=== PATIENT | female | born 1955 | race Caucasian/White ===

== ENCOUNTER 2017-06-10 09:01 | Inpatient (IN) | payer OTHER ==
[~2017-06-10] VITALS: Ht 170.2 cm; Wt 78.5 kg
--- NOTE | 2017-06-10 09:12 | Emergency Room Report ---
History of Present Illness General Chief Complaint: Generalized Weakness Source: Patient, EMS Present Illness HPI Patient is a 61-year-old female who presented after difficulty breathing. Patient reportedly had fallen yesterday. The patient reported having increased low back pain. The patient stays at a psychiatric facility. She was noted to have a low oxygen saturation and was started on supplemental oxygen by EMS. Allergies: Coded Allergies: No Known Allergies (Unverified , 06/10/17) Patient History Past Medical History: see triage record Reviewed Nursing Documentation: PMH: Agreed, PSxH: Agreed Nursing Documentation-PMH Past Medical History: No History, Except For Hx Cardiac Problems: Yes Hx Hypertension: Yes Hx Diabetes: Yes History Of Psychiatric Problem: Yes - Schizophrenia Hx Cerebrovascular Accident: Yes Review of Systems All Other Systems: limited - by poor historian Physical Exam Vital Signs Date Time Temp Pulse Resp B/P Pulse Ox O2 Delivery O2 Flow Rate FiO2 06/10/17 08:53 97.0 95 15 98/56 86 Non-Rebreather 15.0 General Appearance: alert, non-toxic, moderate distress ENT: normal pharynx Neck: full range of motion, supple Respiratory: accessory muscle use, rales Cardiovascular #1: regular rate, rhythm, no edema Gastrointestinal: normal inspection, normal bowel sounds Musculoskeletal: normal inspection, back normal, digits/nails normal Neurologic: normal inspection, alert, oriented x3, responsive Psychiatric: memory normal, other - flat affect slow speech Skin: normal inspection, normal color, no rash Medical Decision Making Diagnostic Impression: Primary Impression: Congestive heart failure Additional Impressions: Hypoxemia COPD (chronic obstructive pulmonary disease) Urinary tract infection ER Course Patient presented to shortness of breath.Differential included but was not limited to anemia, pneumonia, pneumothorax, myocardial infarction, pericardial effusion, congestive heart failure, acidosis. Because of complexity of patient' s case laboratory testing and imaging studies were ordered.Patient started on BiPAP. She was given breathing treatments. Patient was noted to have some evidence of urinary tract infection was given IV antibiotics patient was noted to have the chest x-ray read by radiology which showed evidence of CHF and cardiomegaly. Patient was given IV Lasix. The ABG showed CO2 retention which was initially drawn on a nonrebreather mask. Patient subsequently placed on BiPAP and was noted to have some improvement in CO2 with BiPAP. Dr. Olu Graham was contacted for inpatient management. Dr. brown was contacted for pulmonary consult. Labs Test 06/10/17 09:00 White Blood Count 8.0 K/UL (4.8-10.8) Red Blood Count 6.07 M/UL (4.20-5.40) Hemoglobin 17.1 G/DL (12.0-16.0) Hematocrit 57.2 % (37.0-47.0) Mean Corpuscular Volume 94 FL (80-99) Mean Corpuscular Hemoglobin 28.2 PG (27.0-31.0) Mean Corpuscular Hemoglobin Concent 29.8 G/DL (32.0-36.0) Red Cell Distribution Width 20.0 % (11.6-14.8) Platelet Count 143 K/UL (150-450) Mean Platelet Volume 6.4 FL (6.5-10.1) Neutrophils (%) (Auto) 72.7 % (45.0-75.0) Lymphocytes (%) (Auto) 15.1 % (20.0-45.0) Monocytes (%) (Auto) 11.4 % (1.0-10.0) Eosinophils (%) (Auto) 0.1 % (0.0-3.0) Basophils (%) (Auto) 0.8 % (0.0-2.0) EKG Diagnostic Results Rate: normal Rhythm: NSR ST Segments: no acute changes Rhythm Strip Diag. Results EP Interpretation: yes Rhythm: NSR, no PVC's, no ectopy Chest X-Ray Diagnostic Results Chest X-Ray Diagnostic Results : Chest X-Ray Ordered: Yes # of Views/Limited/Complete: 1 View Indication: Shortness of Breath EP Interpretation: No Interpretation: no effusion, no pneumothorax, no acute cardiopulmonary disease, other - right pleural effusion, bilateral interstitial infiltrates Impression: Other - acute chf Last Vital Signs Date Time Temp Pulse Resp B/P Pulse Ox O2 Delivery O2 Flow Rate FiO2 06/10/17 08:53 97.0 95 15 98/56 86 Non-Rebreather 15.0 Status: unchanged Disposition: ADMITTED INPATIENT Condition: Serious Kavon Valentine Jun 10, 2017 09:12
[2017-06-10] MEDS ORDERED: Solu-MEDROL 125mg Inj IVP ONE (09:15)
[2017-06-10] MEDS ORDERED: DuoNeb 0.5-3(2.5)mg/3ml neb HHN SCH (09:15)
[2017-06-10] MEDS ORDERED: Ampicillin/Sulbactam Sod 3 GM in NS 110 ML IV SCH (09:15)
[2017-06-10] MEDS ORDERED: Unasyn 3gm Inj ONE (09:17)
[2017-06-10 09:33] VITALS: BP 98/78
[2017-06-10 09:39] LABS: BASOPHILS % (AUTO) 0.8 % (0.0-2.0); EOSINOPHILS % (AUTO) 0.1 % (0.0-3.0); LYMPHOCYTES % (AUTO) 15.1 % (20.0-45.0); MEAN CORPUSCULAR HEMOGLOBIN 28.2 PG (27.0-31.0); MEAN CORPUSCULAR HGB CONC 29.8 G/DL (32.0-36.0); MEAN CORPUSCULAR VOLUME 94 FL (80-99); MEAN PLATELET VOLUME 6.4 FL (6.5-10.1); MONOCYTES % (AUTO) 11.4 % (1.0-10.0); NEUTROPHILS % (AUTO) 72.7 % (45.0-75.0); PLATELET COUNT 143 K/UL (150-450); RED BLOOD COUNT 6.07 M/UL (4.20-5.40)
[2017-06-10 09:55] LABS: REFLEX LACTIC ACID YES OR NO YES
[2017-06-10 10:07] LABS: ABG PCO2 85.1 mmHg (35.0-45.0)
[2017-06-10 10:08] LABS: ABG BASE EXCESS -0.3
[2017-06-10 10:09] LABS: ABG ALLEN TEST POSITIVE
[2017-06-10 10:27] VITALS: BP 102/63
[2017-06-10 10:40] LABS: INR 1.4 (0.9-1.1); PROTHROMBIN TIME 14.3 SEC (9.30-11.50)
[2017-06-10 10:53] LABS: TROPONIN I < 0.30 ng/mL (<=0.30)
[2017-06-10] MEDS ORDERED: MONTELUKAST SOD10 MG ORAL (10:55)
[2017-06-10] MEDS ORDERED: MAGNESIUM OXID400 M1 ORAL (10:55)
[2017-06-10] MEDS ORDERED: ATORVASTATIN CA20 MG ORAL (10:55)
[2017-06-10] MEDS ORDERED: ISOSORBIDE MONO20 MG PO (10:57)
[2017-06-10] MEDS ORDERED: GABAPENTIN100 MG ORAL (10:57)
[2017-06-10] MEDS ORDERED: BENAZEPRIL HCL20 MG ORAL (10:57)
[2017-06-10] MEDS ORDERED: SAPHRIS10 MG SL (10:58)
[2017-06-10] MEDS ORDERED: TRAZODONE HCL150 MG ORAL (11:00)
[2017-06-10] MEDS ORDERED: LAMICTAL150 MG ORAL (11:00)
[2017-06-10] MEDS ORDERED: SPIRIVA INH (11:00)
[2017-06-10 11:06] LABS: ALBUMIN/GLOBULIN RATIO 1.2 (1.0-2.7); CALCIUM 8.7 mg/dL (8.6-10.2); CREATININE 1.9 mg/dL (0.5-0.9); GLOMERULAR FILTRATION RATE 26.7 mL/min (>60); POTASSIUM 5.7 mEQ/L (3.4-4.9); TOTAL PROTEIN 6.2 g/dL (6.6-8.7)
[2017-06-10 11:22] LABS: APPEARANCE,URINE TURBID; KETONES,URINE 1+ (NEGATIVE); LEUKOCYTE ESTERASE ,URINE 3+ (NEGATIVE); NITRITE,URINE POSITIVE (NEGATIVE); PH,URINE 5 (4.5-8.0); PROTEIN,URINE 3+ (NEGATIVE); UROBILINOGEN,URINE 4 MG/DL (0.0-1.0)
[2017-06-10 11:33] LABS: ABG PCO2 75.7 mmHg (35.0-45.0)
[2017-06-10 11:34] LABS: ABG BASE EXCESS -2.4
[2017-06-10 11:35] LABS: ABG ALLEN TEST POSITIVE
--- NOTE | 2017-06-10 11:35 | Diagnostic Imaging Report ---
Indications: Shortness of breath Technique: Portable AP chest Findings: Comparison: None Cardiac silhouette enlarged. Pulmonary vascular redistribution. Bilateral interstitial infiltrates. Right costophrenic angle blunting compatible pleural effusion. IMPRESSION: Congestive heart failure
[2017-06-10 11:43] LABS: BACTERIA,URINE MODERATE /HPF; SQUAMOUS EPITHELIAL CELL,UR MODERATE /LPF (NONE/OCC); WBC,URINE 30-40 /HPF (0 - 2)
[2017-06-10 11:44] LABS: ICTOTEST POSITIVE
[2017-06-10 12:23] VITALS: BP 99/78
[2017-06-10 13:59] VITALS: BP 125/69
[2017-06-10] MEDS ORDERED: Promethazine/Codeine 5ml UD ORAL PRN (14:00)
--- NOTE | 2017-06-10 14:07 | Infectious Diseases Prog Note ---
Assessment/Plan Problems: (1) HCAP (healthcare-associated pneumonia) Assessment & Plan: will start vancomycin and zosyn empirically, send sputum culture (2) Urinary tract infection Assessment & Plan: will start zosyn, send urine culture (3) Sepsis Assessment & Plan: due to the above, will start wide spectrum antibiotics, and send blood culture (4) Congestive heart failure Assessment & Plan: needs diuresis , consult cardiology Subjective Allergies: Coded Allergies: No Known Allergies (Unverified , 06/10/17) Objective Vital Signs Last 24 Hour Vital Signs Date Time Temp Pulse Resp B/P Pulse Ox O2 Delivery O2 Flow Rate FiO2 06/10/17 13:59 97.7 88 23 125/69 94 Bi-pap 40 06/10/17 13:42 96.9 89 23 99/78 92 Bi-pap 15.0 40 06/10/17 12:23 89 23 99/78 92 Bi-pap 40 06/10/17 11:05 87 20 93 Facial 40 06/10/17 10:28 83 20 95 Facial 50 06/10/17 10:27 85 17 102/63 94 Bi-pap 40 06/10/17 09:33 96.9 85 17 98/78 97 Non-Rebreather 15.0 06/10/17 09:25 86 24 91 Non-Rebreather 06/10/17 09:23 86 24 Non-Rebreather 06/10/17 08:53 97.0 95 15 98/56 86 Non-Rebreather 15.0 Height (Feet): 5 Height (Inches): 7.00 Weight (Pounds): 180 Laboratory Tests Test 06/10/17 09:00 06/10/17 09:08 06/10/17 10:00 06/10/17 10:50 White Blood Count 8.0 K/UL (4.8-10.8) Red Blood Count 6.07 M/UL (4.20-5.40) H Hemoglobin 17.1 G/DL (12.0-16.0) H Hematocrit 57.2 % (37.0-47.0) H Mean Corpuscular Volume 94 FL (80-99) Mean Corpuscular Hemoglobin 28.2 PG (27.0-31.0) Mean Corpuscular Hemoglobin Concent 29.8 G/DL (32.0-36.0) L Red Cell Distribution Width 20.0 % (11.6-14.8) H Platelet Count 143 K/UL (150-450) L Mean Platelet Volume 6.4 FL (6.5-10.1) L Neutrophils (%) (Auto) 72.7 % (45.0-75.0) Lymphocytes (%) (Auto) 15.1 % (20.0-45.0) L Monocytes (%) (Auto) 11.4 % (1.0-10.0) H Eosinophils (%) (Auto) 0.1 % (0.0-3.0) Basophils (%) (Auto) 0.8 % (0.0-2.0) Lactic Acid Level 2.80 mmol/L (0.66-2.22) H 2.50 mmol/L (0.66-2.22) H Arterial Blood pH 7.180 (7.350-7.450) Arterial Blood Partial Pressure CO2 85.1 mmHg (35.0-45.0) *H Arterial Blood Partial Pressure O2 64.8 mmHg (75.0-100.0) L Arterial Blood HCO3 31.7 mmol/L (22.0-26.0) H Arterial Blood Oxygen Saturation 87.2 % (92.0-98.0) L Arterial Blood Base Excess -0.3 Perico Test Positive Prothrombin Time 14.3 SEC (9.30-11.50) H Prothromb Time International Ratio 1.4 (0.9-1.1) H Activated Partial Thromboplast Time 28 SEC (23-33) Sodium Level 140 mEQ/L (135-145) Potassium Level 5.7 mEQ/L (3.4-4.9) H Chloride Level 100 mEQ/L (98-107) Carbon Dioxide Level 23 mEQ/L (20-30) Anion Gap 17 (5-15) H Blood Urea Nitrogen 28 mg/dL (7-23) H Creatinine 1.9 mg/dL (0.5-0.9) H Estimat Glomerular Filtration Rate 26.7 mL/min (>60) Glucose Level 136 mg/dL (74-106) H Calcium Level 8.7 mg/dL (8.6-10.2) Total Bilirubin 0.7 mg/dL (0.0-1.2) Aspartate Amino Transf (AST/SGOT) 45 U/L (5-40) H Alanine Aminotransferase (ALT/SGPT) 31 U/L (3-33) Alkaline Phosphatase 64 U/L (35-104) Total Creatine Kinase 385 U/L (26-140) H Creatine Kinase MB 3.0 ng/mL (< 3.8) Creatine Kinase MB Relative Index 0.7 Troponin I < 0.30 ng/mL (<=0.30) Pro-B-Type Natriuretic Peptide 4674 pg/mL (0-125) H Total Protein 6.2 g/dL (6.6-8.7) L Albumin 3.5 g/dL (3.5-5.2) Globulin 2.7 g/dL Albumin/Globulin Ratio 1.2 (1.0-2.7) Urine Color Yellow Urine Appearance Turbid Urine pH 5 (4.5-8.0) Urine Specific [place] 1.025 (1.005-1.035) Urine Protein 3+ (NEGATIVE) H Urine Glucose (UA) Negative (NEGATIVE) Urine Ketones 1+ (NEGATIVE) H Urine Occult Blood 2+ (NEGATIVE) H Urine Nitrite Positive (NEGATIVE) H Urine Bilirubin 2+ (NEGATIVE) H Urine Ictotest Positive Urine Urobilinogen 4 MG/DL (0.0-1.0) H Urine Leukocyte Esterase 3+ (NEGATIVE) H Urine RBC 10-15 /HPF (0 - 2) H Urine WBC 30-40 /HPF (0 - 2) H Urine Squamous Epithelial Cells Moderate /LPF (NONE/OCC) H Urine Bacteria Moderate /HPF (NONE) H Urine Hyaline Casts 10-15 /LPF (NONE) H Test 06/10/17 11:03 Arterial Blood pH 7.190 (7.350-7.450) Arterial Blood Partial Pressure CO2 75.7 mmHg (35.0-45.0) *H Arterial Blood Partial Pressure O2 72.1 mmHg (75.0-100.0) L Arterial Blood HCO3 28.8 mmol/L (22.0-26.0) H Arterial Blood Oxygen Saturation 90.5 % (92.0-98.0) L Arterial Blood Base Excess -2.4 Perico Test Positive Current Medications Medications (Trade) Dose Ordered Sig/Lloyd Route PRN Reason Start Time Stop Time Status Last Admin Dose Admin Ampicillin Sodium/ Sulbactam Sodium/ Sodium Chloride (Unasyn/Sodium Chloride) 110 ml @ 220 mls/hr Q6H IV 06/10/17 09:15 06/11/17 09:14 06/10/17 09:21 Furosemide/ Dextrose (Lasix/D5W) 100 ml @ 10 mls/hr Q10H IV 06/10/17 15:00 07/10/17 14:59 Lamotrigine (LaMICtal) 150 mg DAILY ORAL 06/11/17 09:00 07/11/17 08:59 Promethazine HCl/ Codeine 5 ml 5 ml Q4H PRN ORAL For Cough 06/10/17 14:00 07/10/17 13:59 Trazodone HCl (Desyrel) 150 mg BEDTIME ORAL 06/10/17 21:00 07/10/17 20:59 Aki Blankenship M.D. Jun 10, 2017 14:07
[2017-06-10 16:00] VITALS: BP 120/76
[2017-06-10] MEDS ORDERED: Vancomycin 1.5 GM/D5W 250ML IVPB ONE (16:00)
[2017-06-10] MEDS ORDERED: Phytonadione 5 MG in D5W 55 ML IVPB ONE (17:00)
--- NOTE | 2017-06-10 18:37 | Cardiology Report ---
APPROVED REPORT EXAM: Two-dimensional and M-mode echocardiogram with Doppler and color Doppler. INDICATION LV function M-Mode DIMENSIONS Left Atrium (MM)3.9 (1.6-4.0cm) Aortic Root3.2 (2.0-3.7cm) Aortic Cusp Exc.1.9 (1.5-2.0cm) Normal left ventricular chamber size, systolic function. Diastolic flattening of VS suggestive of RV pressuer overload . Septal asynchronous due to RV overload, otherwise normal wall motion in all other segments. Left ventricular ejection fraction estimated to be 60-65 %. Mild left ventricular hypertrophy. Anterior Echo-free space, may be due to pericardial fat or effusion. Left atrial size at upper limits of normal. Right cardiac chamber sizes are significantly enlarged. Focal aortic valve sclerosis with adequate cusp excursion. Thickened mitral valve leaflets with normal excursion. Mitral annulus and aortic root calcification. Pulmonic valve not well visualized. Normal tricuspid valve structure. IVC at normal size with physiologic collapse. A color flow and spectral Doppler study was performed and revealed: Trace aortic regurgitation. Trace mitral regurgitation. Mitral diastolic velocities suggest reduced left ventricular relaxation c/w mild LV diastolic dysfunction (Grade I). Moderate tricuspid regurgitation. Tricuspid systolic velocities suggests peak right ventricular systolic pressure of 55 mmHg, consistent with moderate pulmonary hypertension.
[2017-06-10] MEDS: Piperacillin/Tazobactam 3.375 GM in D5W 110 ML IVPB SCH (18:56)
[2017-06-10 19:53] VITALS: BP 98/72
[2017-06-10] MEDS ORDERED: Vitamin A&D Oint 2oz Tube TOPIC SCH (21:00)
--- NOTE | 2017-06-10 21:09 | Cardiology Progress Note ---
Assessment/Plan Assessment/Plan The patient is seen and examined, full consult note will be dictated. Objective Last 24 Hour Vital Signs Date Time Temp Pulse Resp B/P Pulse Ox O2 Delivery O2 Flow Rate FiO2 06/10/17 19:53 98.7 83 19 98/72 95 Bi-pap 06/10/17 19:36 92 22 93 Facial 50 06/10/17 17:44 86 18 93 Facial 40 06/10/17 16:00 81 06/10/17 16:00 98.1 83 20 120/76 95 Bi-pap 50 06/10/17 14:57 86 20 92 Facial 40 06/10/17 14:08 88 21 95 Facial 40 06/10/17 14:00 40 06/10/17 13:59 97.7 88 23 125/69 94 Bi-pap 40 06/10/17 13:42 96.9 89 23 99/78 92 Bi-pap 15.0 40 06/10/17 12:23 89 23 99/78 92 Bi-pap 40 06/10/17 11:05 87 20 93 Facial 40 06/10/17 10:28 83 20 95 Facial 50 06/10/17 10:27 85 17 102/63 94 Bi-pap 40 06/10/17 09:33 96.9 85 17 98/78 97 Non-Rebreather 15.0 06/10/17 09:25 86 24 91 Non-Rebreather 06/10/17 09:23 86 24 Non-Rebreather 06/10/17 08:53 97.0 95 15 98/56 86 Non-Rebreather 15.0 Laboratory Tests Test 06/10/17 09:00 06/10/17 09:08 06/10/17 10:00 06/10/17 10:50 White Blood Count 8.0 K/UL (4.8-10.8) Red Blood Count 6.07 M/UL (4.20-5.40) H Hemoglobin 17.1 G/DL (12.0-16.0) H Hematocrit 57.2 % (37.0-47.0) H Mean Corpuscular Volume 94 FL (80-99) Mean Corpuscular Hemoglobin 28.2 PG (27.0-31.0) Mean Corpuscular Hemoglobin Concent 29.8 G/DL (32.0-36.0) L Red Cell Distribution Width 20.0 % (11.6-14.8) H Platelet Count 143 K/UL (150-450) L Mean Platelet Volume 6.4 FL (6.5-10.1) L Neutrophils (%) (Auto) 72.7 % (45.0-75.0) Lymphocytes (%) (Auto) 15.1 % (20.0-45.0) L Monocytes (%) (Auto) 11.4 % (1.0-10.0) H Eosinophils (%) (Auto) 0.1 % (0.0-3.0) Basophils (%) (Auto) 0.8 % (0.0-2.0) Lactic Acid Level 2.80 mmol/L (0.66-2.22) H 2.50 mmol/L (0.66-2.22) H Arterial Blood pH 7.180 (7.350-7.450) Arterial Blood Partial Pressure CO2 85.1 mmHg (35.0-45.0) *H Arterial Blood Partial Pressure O2 64.8 mmHg (75.0-100.0) L Arterial Blood HCO3 31.7 mmol/L (22.0-26.0) H Arterial Blood Oxygen Saturation 87.2 % (92.0-98.0) L Arterial Blood Base Excess -0.3 Perico Test Positive Prothrombin Time 14.3 SEC (9.30-11.50) H Prothromb Time International Ratio 1.4 (0.9-1.1) H Activated Partial Thromboplast Time 28 SEC (23-33) Sodium Level 140 mEQ/L (135-145) Potassium Level 5.7 mEQ/L (3.4-4.9) H Chloride Level 100 mEQ/L (98-107) Carbon Dioxide Level 23 mEQ/L (20-30) Anion Gap 17 (5-15) H Blood Urea Nitrogen 28 mg/dL (7-23) H Creatinine 1.9 mg/dL (0.5-0.9) H Estimat Glomerular Filtration Rate 26.7 mL/min (>60) Glucose Level 136 mg/dL (74-106) H Calcium Level 8.7 mg/dL (8.6-10.2) Total Bilirubin 0.7 mg/dL (0.0-1.2) Aspartate Amino Transf (AST/SGOT) 45 U/L (5-40) H Alanine Aminotransferase (ALT/SGPT) 31 U/L (3-33) Alkaline Phosphatase 64 U/L (35-104) Total Creatine Kinase 385 U/L (26-140) H Creatine Kinase MB 3.0 ng/mL (< 3.8) Creatine Kinase MB Relative Index 0.7 Troponin I < 0.30 ng/mL (<=0.30) Pro-B-Type Natriuretic Peptide 4674 pg/mL (0-125) H Total Protein 6.2 g/dL (6.6-8.7) L Albumin 3.5 g/dL (3.5-5.2) Globulin 2.7 g/dL Albumin/Globulin Ratio 1.2 (1.0-2.7) Urine Color Yellow Urine Appearance Turbid Urine pH 5 (4.5-8.0) Urine Specific [place] 1.025 (1.005-1.035) Urine Protein 3+ (NEGATIVE) H Urine Glucose (UA) Negative (NEGATIVE) Urine Ketones 1+ (NEGATIVE) H Urine Occult Blood 2+ (NEGATIVE) H Urine Nitrite Positive (NEGATIVE) H Urine Bilirubin 2+ (NEGATIVE) H Urine Ictotest Positive Urine Urobilinogen 4 MG/DL (0.0-1.0) H Urine Leukocyte Esterase 3+ (NEGATIVE) H Urine RBC 10-15 /HPF (0 - 2) H Urine WBC 30-40 /HPF (0 - 2) H Urine Squamous Epithelial Cells Moderate /LPF (NONE/OCC) H Urine Bacteria Moderate /HPF (NONE) H Urine Hyaline Casts 10-15 /LPF (NONE) H Test 06/10/17 11:03 Arterial Blood pH 7.190 (7.350-7.450) Arterial Blood Partial Pressure CO2 75.7 mmHg (35.0-45.0) *H Arterial Blood Partial Pressure O2 72.1 mmHg (75.0-100.0) L Arterial Blood HCO3 28.8 mmol/L (22.0-26.0) H Arterial Blood Oxygen Saturation 90.5 % (92.0-98.0) L Arterial Blood Base Excess -2.4 Perico Test Positive VIVIANE EDUARDO Jun 10, 2017 21:09
[2017-06-10] MEDS: TraZODone 100mg tab ORAL SCH (21:42)
--- NOTE | 2017-06-10 21:45 | Consultation ---
DATE OF CONSULTATION: INFECTIOUS DISEASE CONSULTATION CONSULTING PHYSICIAN: Aki Blankenship M.D. REQUESTING PHYSICIAN: Olu Calero M.D. REASON FOR CONSULTATION: Sepsis, pneumonia, urinary tract infection, recommendation for antibiotics therapy. HISTORY OF PRESENT ILLNESS: The patient is a 61-year-old female with past medical history of coronary artery disease, hypertension, diabetes, schizophrenia, and CVA, was sent from the [facility] for shortness of breath and difficulty breathing. The patient was found to have a low oxygen saturation. She was started on oxygen supplement by the paramedics. Upon arrival, her O2 saturation was found to be low in the emergency room, so she was started on high-flow oxygen with non-rebreathable mask and then switched to BiPAP to improve her oxygenation. She was also hypotensive with systolic blood pressure of 98. The patient received one dose of antibiotics after her chest x-ray showed evidence of infiltration and urinalysis showed evidence of infection and I was consulted by the primary provider for antibiotics treatment and further management. As of note, the patient on BiPAP machine, cannot provide any history at this point. History was mainly obtained from the medical record. PAST MEDICAL HISTORY: Significant for coronary artery disease, hypertension, diabetes, schizophrenia, and CVA. PAST SURGICAL HISTORY: Negative. ALLERGIES: She has no known drug allergy. MEDICATIONS: She received Unasyn in the emergency room. For the rest of her medications, please refer to MAR. SOCIAL HISTORY: The patient lives at the [facility] facility. No recent drugs, tobacco, or alcohol. FAMILY HISTORY: Unable to obtain. PHYSICAL EXAMINATION: VITAL SIGNS: Temperature 97.7, pulse 88, respirations 21, and pulse oximetry 95% on 40% FiO2 via BiPAP. GENERAL: An elderly female, lying in bed, comfortable on BiPAP machine, alert, not in distress. HEENT: Normocephalic and atraumatic. Pupils reactive to light. Pale sclera. Unable to assess oral mucosa due to BiPAP mask. NECK: Supple. No lymphadenopathy. CARDIOVASCULAR: Regular rate and rhythm. No murmur. LUNGS: She had crackles. Diminished breathing sounds at the bases. Normal breathing effort. ABDOMEN: Soft, obese, nontender, and nondistended. Positive bowel sounds. No hepatosplenomegaly. No ascites. EXTREMITIES: No edema. No cyanosis. SKIN: Multiple skin breaks on both legs with abrasions and hemorrhagic component, redness and erythema also underneath both breasts. LABORATORY AND DIAGNOSTIC DATA: Laboratories showed a white count of 8000, hemoglobin of 17.1, and platelet count of 143,000. BUN of 28, creatinine of 1.9. Urinalysis was positive for nitrites, +3 leukocyte esterase, WBC 30 to 40, and moderate amount of bacteria. IMAGING: Chest x-ray showed congestive heart failure. ASSESSMENT AND RECOMMENDATION: 1. Healthcare-acquired pneumonia. We will start the patient on vancomycin and Zosyn empiric treatment and send sputum culture. Monitor chest x-ray. 2. Urinary tract infection. We will start Zosyn and send urine culture. 3. Bilateral lower extremity wounds. Continue local wound care. The patient will be already on wide-spectrum antibiotics treatment. 4. Cellulitis of the breasts. The patient will be on wide-spectrum antibiotics, which would cover it. Recommend nystatin topical. 5. Sepsis due to the above. We will start wide-spectrum antibiotics coverage and send blood culture. 6. Congestive heart failure with exacerbation and needs diuresis and echocardiogram. Consult Cardiology for further care and management. Aki Blankenship M.D. DR: SYEDA JOB#: [id number] CC:
[2017-06-11] VITALS (7 sets, daily range): BP systolic 92–113; BP diastolic 48–72
--- NOTE | 2017-06-11 | Consultation ---
DATE OF CONSULTATION: 06/10/2017 CONSULTING PHYSICIAN: Don Parekh M.D. HISTORY OF PRESENT ILLNESS: This is a 61-year-old female with a history of depression and bipolar disorder who has been admitted to the hospital due to chief complaint of generalized weakness. The patient is residing in a psychiatric facility. During the evaluation, the patient appeared to be weak. She was alert and oriented to self, place, and situation she is in. She does not currently endorse any active depressive symptoms. However, she has fatigue and anxiety. The patient is being treated for low oxygen saturation. PAST PSYCHIATRIC HISTORY: She has been to several psychiatric hospitalizations, diagnosed with bipolar disorder, treated with antidepressant and mood stabilizers. ALLERGIES: No known drug allergies. SUBSTANCE ABUSE HISTORY: There is no history of illicit drug use or alcohol. MENTAL STATUS EXAMINATION: The patient is alert and oriented times self, place, and situation she is in. Mood is depressed. Affect is constricted. Congruent with mood. Thought process is concrete. Thought content, no suicidal or homicidal ideation. Cognition is intact. PAST MEDICAL HISTORY: Significant for COPD, congestive heart failure, urinary tract infection, and hypoxemia. ASSESSMENT: [place] I Schizophrenia by history, bipolar disorder. [place] II Deferred. [place] III As above. [place] IV Low. [place] V Global assessment of functioning is 50. PLAN: 1. The patient will be started on Lamictal 150 mg and trazodone 150 mg at night. 2. We will continue to follow and readjust the medication. Don Parekh M.D. DR: LOUISA JOB#: [id number] CC:
[2017-06-11] MEDS: Piperacillin/Tazobactam 3.375 GM in D5W 110 ML IVPB SCH ×3 (01:04→18:31)
[2017-06-11 05:45] LABS: BASOPHILS % (AUTO) 0.7 % (0.0-2.0); LYMPHOCYTES % (AUTO) 8.5 % (20.0-45.0); MEAN CORPUSCULAR HEMOGLOBIN 29.3 PG (27.0-31.0); MEAN CORPUSCULAR HGB CONC 30.6 G/DL (32.0-36.0); MEAN CORPUSCULAR VOLUME 96 FL (80-99); MEAN PLATELET VOLUME 7.5 FL (6.5-10.1); MONOCYTES % (AUTO) 11.8 % (1.0-10.0); PLATELET COUNT 153 K/UL (150-450); RED BLOOD COUNT 6.14 M/UL (4.20-5.40); RED CELL DISTRIBUTION WIDTH 19.7 % (11.6-14.8); WHITE BLOOD COUNT 7.8 K/UL (4.8-10.8)
[2017-06-11 05:53] LABS: HEMOGLOBIN A1C 6.5 % (< 6.0)
[2017-06-11 06:13] LABS: MAGNESIUM 1.9 mg/dL (1.7-2.5); URIC ACID 8.9 mg/dL (3.0-7.5)
[2017-06-11 06:23] LABS: THYROID STIMULATING HORMONE 0.463 uIU/mL (0.300-4.500)
[2017-06-11 06:24] LABS: ALBUMIN/GLOBULIN RATIO 1.4 (1.0-2.7); CALCIUM 8.5 mg/dL (8.6-10.2); CHOLESTEROL/HDL RATIO 3.5 (3.3-4.4); CREATININE 1.4 mg/dL (0.5-0.9); TOTAL PROTEIN 5.6 g/dL (6.6-8.7)
[2017-06-11] MEDS ORDERED: Tubing IV Secondary IV ONE (08:51)
[2017-06-11] MEDS ORDERED: NS 275ml ONE (08:51)
--- NOTE | 2017-06-11 10:05 | Diagnostic Imaging Report ---
Indications: DYSPNEA Technique: Portable AP chest Findings: Comparison: 06/10/17 Indistinctness of right costophrenic angle suggesting pleural effusion persists, perhaps mildly increased. Cardiomegaly, diffuse bilateral interstitial infiltrates unchanged. Right midlung linear density decreased. Left midlung linear density increased. No other change. IMPRESSION: Stable bilateral congestive changes except for suggestion of mild increase in right pleural effusion Decreasing right, increase in left midlung subsegmental atelectasis
--- NOTE | 2017-06-11 10:16 | Consultation ---
Consult Note Consult Note Patient is a 61-year-old female who presented after difficulty breathing. Patient reportedly had fallen yesterday. The patient reported having increased low back pain. The patient stays at a psychiatric facility. She was noted to have a low oxygen saturation and was started on supplemental oxygen by EMS. Hx Cardiac Problems: Yes Hx Hypertension: Yes Hx Diabetes: Yes History Of Psychiatric Problem: Yes - Schizophrenia Hx Cerebrovascular Accident: Yes Examined- On BIPAP Assessment/Plan - COPD - HCAP (healthcare-associated pneumonia) - Urinary tract infection - Sepsis - Congestive heart failure Monitor lytes and renal parameters avoid nephrotoxics optimize pulm and cardiac status - JENNIFER OVALLE Jun 11, 2017 10:16
--- NOTE | 2017-06-11 10:16 | Consultation ---
DATE OF CONSULTATION: 06/10/2017 HEMATOLOGY/ONCOLOGY CONSULTATION CONSULTING PHYSICIAN: Steven Chang M.D. REQUESTING PHYSICIAN: Olu Calero M.D. REASON FOR CONSULTATION: Leukocytosis. IDENTIFICATION: Dear Dr. Abdias Raines, The patient is a pleasant 61-year-old female with past medical history, which is significant for history of hypertension, diabetes mellitus, schizophrenia, and history of CVA, at this time presents with difficulty speaking. Reportedly, the patient fell, having some pain in the lower back. She stays at a psychiatric facility and noted to have low oxygen saturation and noted to have high hemoglobin as well as thrombocytopenia and coagulopathy. Therefore, Hematology service consulted 01:12 as well as Infectious Disease service. PAST MEDICAL HISTORY: As noted above. PAST SURGICAL HISTORY: Has been reviewed. REVIEW OF SYSTEMS: Limited, the patient is a poor historian. ALLERGIES: No known drug allergies. PHYSICAL EXAMINATION: GENERAL: The patient is in no distress. VITAL SIGNS: Temperature is 98 degrees Fahrenheit, pulse 95, respiratory rate 15, blood pressure 98/86, and pulse oximetry nonrebreather 15 liters. PULMONARY: Decreased breath sounds. No crackles noted. CARDIOVASCULAR: Regular rate. No S3 or S4. ABDOMEN: Soft, nontender, and nondistended. EXTREMITIES: No cyanosis, clubbing, or edema. LABORATORY DATA: INR of 1.4 and prothrombin time of 14.3. BUN 28 and creatinine 1.9. Lactic acid 2.8, declining up to 2.5. Albumin 3.5. Hemoglobin 17.1 and platelet count 142,000. ASSESSMENT AND PLAN: 1. Leukocytosis, likely with history of underlying chronic obstructive pulmonary disease. At this time, we will hold off on DEION 2 level. We will need to have leukocytosis addressed as an outpatient likely 02:48. 2. Elevated prothrombin time and normal PTT. Potential concerning from vitamin K deficiency as well as potentially factor VII deficiency, which may be acquired in patients with acute 03:10 disease, and on warfarin. We will administer vitamin K as well as treat any underlying infectious process. 3. Thrombocytopenia, potentially secondary to underlying healthcare-associated pneumonia. She is on antibiotics. 4. Urinary tract infection. She is on antibiotics as well. Urine culture is pending. 5. Congestive heart failure, needs diuresis. Cardiology service was consulted. 6. Chronic obstructive pulmonary disease history and difficulty with breathing. I appreciate the consultation. Steven Chang M.D. DR: MANDY JOB#: [id number] CC:
[2017-06-11] MEDS: LaMICtal 150mg tab ORAL SCH (10:44)
--- NOTE | 2017-06-11 10:50 | Consultation ---
History of Present Illness General Date patient seen: Jun 11, 2017 Chief Complaint: Generalized Weakness Present Illness HPI 61-year-old female with hx of CHF, COPD, psychiatric disorder brought in by paramedics with CC of difficulty breathing. P. She was noted to have a low oxygen saturation and was started on supplemental oxygen by EMS. Pt was found to have pulmonary edema. Was put on BIPAP and transferred to [facility]. Allergies: Coded Allergies: No Known Allergies (Unverified , 06/10/17) Medication History Scheduled Asenapine Maleate (Saphris), 10 MG SL TWICE A DAY, (Reported) Benazepril Hcl* (Benazepril Hcl*), 20 MG ORAL DAILY, (Reported) Gabapentin* (Gabapentin*), 100 MG ORAL DAILY, (Reported) Isosorbide Mononitrate (Isosorbide Mononitrate), 20 MG PO DAILY, (Reported) Lamotrigine* (Lamictal*), 150 MG ORAL BEDTIME, (Reported) Magnesium Oxide (Magnesium Oxide), 400 MG ORAL DAILY, (Reported) Montelukast Sodium* (Montelukast Sodium*), 10 MG ORAL TWICE A DAY, (Reported) Trazodone* (Trazodone*), 300 MG ORAL BEDTIME, (Reported) [Spiriva], 2.5 MG INH DAILY, (Reported) Miscellaneous Medications Atorvastatin Calcium* (Atorvastatin Calcium*), 20 MG ORAL, (Reported) Patient History Healthcare decision maker Resuscitation status Full Code Advanced Directive on File No Past Medical/Surgical History Past Medical/Surgical History: (1) Congestive heart failure (2) COPD (chronic obstructive pulmonary disease) Review of Systems All Other Systems: negative except mentioned in HPI Physical Exam General Appearance: WD/WN, no apparent distress Lines, tubes and drains: peripheral, central line HEENT: normocephalic, atraumatic Neck: non-tender, normal alignment Respiratory/Chest: chest wall non-tender, lungs clear Breasts: no masses Cardiovascular/Chest: normal peripheral pulses, regular rhythm Abdomen: normal bowel sounds, non tender Genitourinary/Rectal: normal genital exam, normal rectal exam Extremities: normal range of motion Last 24 Hour Vital Signs Date Time Temp Pulse Resp B/P (MAP) Pulse Ox O2 Delivery O2 Flow Rate FiO2 06/11/17 08:40 60 19 97 Facial 70 06/11/17 08:00 70 06/11/17 08:00 62 06/11/17 08:00 97.6 68 19 113/60 96 Bi-pap 70 06/11/17 06:55 64 18 96 Facial 70 06/11/17 05:26 77 19 92 Facial 70 06/11/17 04:00 67 06/11/17 04:00 97.8 74 18 106/65 90 Bi-pap 06/11/17 04:00 50 06/11/17 02:39 73 18 92 Facial 60 06/11/17 01:36 74 19 93 Facial 60 06/11/17 00:00 80 06/11/17 00:00 98.1 61 18 104/72 95 Bi-pap 06/11/17 00:00 50 06/10/17 23:43 78 18 94 Facial 60 06/10/17 22:11 79 18 92 Facial 60 06/10/17 22:10 60 06/10/17 20:00 50 06/10/17 20:00 83 06/10/17 19:53 98.7 83 19 98/72 95 Bi-pap 06/10/17 19:36 92 22 93 Facial 50 06/10/17 17:44 86 18 93 Facial 40 06/10/17 16:00 81 06/10/17 16:00 98.1 83 20 120/76 95 Bi-pap 50 06/10/17 14:57 86 20 92 Facial 40 06/10/17 14:08 88 21 95 Facial 40 06/10/17 14:00 40 06/10/17 13:59 97.7 88 23 125/69 94 Bi-pap 40 06/10/17 13:42 96.9 89 23 99/78 92 Bi-pap 15.0 40 06/10/17 12:23 89 23 99/78 92 Bi-pap 40 06/10/17 11:05 87 20 93 Facial 40 Intake and Output 06/11/17 06/12/17 19:00 07:00 Output Total 800 ml Balance -800 ml Output Urine Total 800 ml # Voids 1 Laboratory Tests Test 06/10/17 10:50 06/10/17 11:03 06/11/17 03:50 Urine Color Yellow Urine Appearance Turbid Urine pH 5 (4.5-8.0) Urine Specific [place] 1.025 (1.005-1.035) Urine Protein 3+ (NEGATIVE) H Urine Glucose (UA) Negative (NEGATIVE) Urine Ketones 1+ (NEGATIVE) H Urine Occult Blood 2+ (NEGATIVE) H Urine Nitrite Positive (NEGATIVE) H Urine Bilirubin 2+ (NEGATIVE) H Urine Ictotest Positive Urine Urobilinogen 4 MG/DL (0.0-1.0) H Urine Leukocyte Esterase 3+ (NEGATIVE) H Urine RBC 10-15 /HPF (0 - 2) H Urine WBC 30-40 /HPF (0 - 2) H Urine Squamous Epithelial Cells Moderate /LPF (NONE/OCC) H Urine Bacteria Moderate /HPF (NONE) H Urine Hyaline Casts 10-15 /LPF (NONE) H Arterial Blood pH 7.190 (7.350-7.450) Arterial Blood Partial Pressure CO2 75.7 mmHg (35.0-45.0) *H Arterial Blood Partial Pressure O2 72.1 mmHg (75.0-100.0) L Arterial Blood HCO3 28.8 mmol/L (22.0-26.0) H Arterial Blood Oxygen Saturation 90.5 % (92.0-98.0) L Arterial Blood Base Excess -2.4 Perico Test Positive White Blood Count 7.8 K/UL (4.8-10.8) Red Blood Count 6.14 M/UL (4.20-5.40) H Hemoglobin 18.0 G/DL (12.0-16.0) H Hematocrit 58.7 % (37.0-47.0) H Mean Corpuscular Volume 96 FL (80-99) Mean Corpuscular Hemoglobin 29.3 PG (27.0-31.0) Mean Corpuscular Hemoglobin Concent 30.6 G/DL (32.0-36.0) L Red Cell Distribution Width 19.7 % (11.6-14.8) H Platelet Count 153 K/UL (150-450) Mean Platelet Volume 7.5 FL (6.5-10.1) Neutrophils (%) (Auto) 79.0 % (45.0-75.0) H Lymphocytes (%) (Auto) 8.5 % (20.0-45.0) L Monocytes (%) (Auto) 11.8 % (1.0-10.0) H Eosinophils (%) (Auto) 0.0 % (0.0-3.0) Basophils (%) (Auto) 0.7 % (0.0-2.0) Sodium Level 141 mEQ/L (135-145) Potassium Level 5.0 mEQ/L (3.4-4.9) H Chloride Level 99 mEQ/L (98-107) Carbon Dioxide Level 30 mEQ/L (20-30) Anion Gap 12 (5-15) Blood Urea Nitrogen 28 mg/dL (7-23) H Creatinine 1.4 mg/dL (0.5-0.9) H Estimat Glomerular Filtration Rate 38.0 mL/min (>60) Glucose Level 115 mg/dL (74-106) H Hemoglobin A1c 6.5 % (< 6.0) H Uric Acid 8.9 mg/dL (3.0-7.5) H Calcium Level 8.5 mg/dL (8.6-10.2) L Phosphorus Level 6.0 mg/dL (2.5-4.8) H Magnesium Level 1.9 mg/dL (1.7-2.5) Total Bilirubin 0.6 mg/dL (0.0-1.2) Gamma Glutamyl Transpeptidase 26 U/L (5-36) Aspartate Amino Transf (AST/SGOT) 29 U/L (5-40) Alanine Aminotransferase (ALT/SGPT) 28 U/L (3-33) Alkaline Phosphatase 54 U/L (35-104) Total Creatine Kinase 134 U/L (26-140) C-Reactive Protein, Quantitative 1.0 mg/dL (< 0.5) H Pro-B-Type Natriuretic Peptide 3014 pg/mL (0-125) H Total Protein 5.6 g/dL (6.6-8.7) L Albumin 3.3 g/dL (3.5-5.2) L Globulin 2.3 g/dL Albumin/Globulin Ratio 1.4 (1.0-2.7) Triglycerides Level 88 mg/dL (< 150) Cholesterol Level 92 mg/dL (< 200) LDL Cholesterol 48 mg/dL (60-99) L HDL Cholesterol 26 mg/dL (> 60) Cholesterol/HDL Ratio 3.5 (3.3-4.4) Thyroid Stimulating Hormone (TSH) 0.463 uIU/mL (0.300-4.500) Microbiology Date/Time Source Procedure Growth Status 06/10/17 10:50 Urine,Clean Catch Urine Culture - Preliminary Gram Negative Bacillus 1 Resulted Height (Feet): 5 Height (Inches): 7.00 Weight (Pounds): 200 Medications Current Medications Medications (Trade) Dose Ordered Sig/Lloyd Route PRN Reason Start Time Stop Time Status Last Admin Dose Admin Furosemide 100 mg/ Dextrose 100 ml @ 10 mls/hr Q10H IV 06/10/17 15:00 07/10/17 14:59 06/11/17 01:04 Lamotrigine (LaMICtal) 150 mg DAILY ORAL 06/11/17 09:00 07/11/17 08:59 Piperacillin Sod/ Tazobactam Sod 3.375 gm/Dextrose 110 ml @ 27.5 mls/hr Q8HR@0200,1000,1800 IVPB 06/10/17 18:00 06/17/17 17:59 06/11/17 01:04 Promethazine HCl/ Codeine (Phenergan with Codeine) 5 ml Q4H PRN ORAL For Cough 06/10/17 14:00 07/10/17 13:59 Trazodone HCl (Desyrel) 150 mg BEDTIME ORAL 06/10/17 21:00 07/10/17 20:59 06/10/17 21:42 Vancomycin HCl (Vanco rx to dose) 1 ea DAILY PRN MISC Per rx protocol 06/10/17 14:00 07/10/17 13:59 Vancomycin HCl 1 gm/Dextrose 275 ml @ 183.708 mls/hr Q24H IVPB 06/11/17 16:00 06/16/17 15:59 Assessment/Plan Problem List: (1) Acute respiratory failure ICD Codes: J96.00 - Acute respiratory failure, unspecified whether with hypoxia or hypercapnia SNOMED: 61851566 (2) COPD (chronic obstructive pulmonary disease) ICD Codes: J44.9 - Chronic obstructive pulmonary disease, unspecified SNOMED: 67717094 (3) Congestive heart failure ICD Codes: I50.9 - Heart failure, unspecified SNOMED: 61441247 (4) Sepsis ICD Codes: A41.9 - Sepsis, unspecified organism SNOMED: 18838970 Assessment/Plan respiratory treatment IV lasix titrate bipap check electrolytes dvt prophylaxis. MARIPOSA BLACKBURN Jun 11, 2017 10:50
--- NOTE | 2017-06-11 11:32 | Wound Care Consultation ---
Wound Assessment Wound Assessment #1: Wound Number: 1 Wound Present on Admission: Yes New Wound: No Status Change of Wound: No Wound Location Body Site Modif: right Wound Location Body Site: buttocks Wound Type: pressure ulcer Snow Test: Does not Snow Pressure Ulcer Stage: III Wound Thickness: Full Thickness Wound Length: 0.8 Wound Width: 0.5 Wound Depth: 0.2 Percent of Wound [place]/Red: 60 Percent of Wound Bed Yellow/Wh: 40 Wound Drainage Description: Serosanguineous Wound Drainage Amount: Scant Wound Drainage Odor: None/Absent Tissue Surrounding Wound: Erythemic Wound General Appearance: Reddened, Draining Wound Assessment #2: Wound Number: 2 Wound Present on Admission: Yes New Wound: No Status Change of Wound: No Wound Location Body Site Modif: mid Wound Location Body Site: other - sacrococcygeal Wound Type: pressure ulcer Snow Test: Does not Snow Pressure Ulcer Stage: I Wound Length: 3.5 Wound Width: 2.5 Percent of Wound [place]/Red: 100 Wound Drainage Amount: None Wound Drainage Odor: None/Absent Tissue Surrounding Wound: Intact Wound General Appearance: Reddened Wound Assessment #3: Wound Number: 3 Wound Present on Admission: Yes New Wound: No Status Change of Wound: No Wound Location Body Site Modif: left, lower, anterior Wound Location Body Site: leg Wound Type: other - anterier Snow Test: Does not Snow Wound Thickness: Full Thickness Wound Length: 15.0 Wound Width: 3.5 Percent of Wound [place]/Red: 100 Wound Drainage Description: Serosanguineous Wound Drainage Amount: Scant Wound Drainage Odor: None/Absent Tissue Surrounding Wound: Denuded Wound General Appearance: Reddened, Draining Wound Assessment #4: Wound Number: 4 Wound Present on Admission: Yes New Wound: No Status Change of Wound: No Wound Location Body Site Modif: right Wound Location Body Site: leg Wound Type: other - abrasion Snow Test: Does not Snow Wound Thickness: Full Thickness Wound Length: 16.5 Wound Width: 4.5 Percent of Wound [place]/Red: 100 Wound Drainage Description: Serosanguineous Wound Drainage Amount: Scant Wound Drainage Odor: None/Absent Tissue Surrounding Wound: Denuded Wound General Appearance: Reddened, Draining Wound Assessment #5: Wound Number: 5 Wound Present on Admission: Yes New Wound: No Status Change of Wound: No Wound Location Body Site Modif: left, right Wound Location Body Site: breast fold Wound Type: rash Snow Test: Does not Snow Percent of Wound [place]/Red: 100 Wound Drainage Amount: None Wound Drainage Odor: None/Absent Tissue Surrounding Wound: Erythemic Wound General Appearance: Reddened Wound Comment #1 Right buttock III pressure ulcer #2 Sacrococcygeal area stage I pressure #3 Left anterior lower leg abrasion #4 Right anterior lower leg abrasion #5 Right and left breast fold rash Recommendation -Left anterior lower leg abrasion and Right anterior lower leg abrasion Cleanse with saline, pat dry, apply adaptic, cover with bordered gauze daily and PRN soiled/dislodged -Sacrococcygeal area stage I pressure Local wound care per protocol -Right and left breast fold rash Local wound care per protocol -Right buttock III pressure ulcer Cleanse with saline, pat dry, apply skin barrier film to katie wound area, apply [place] to wound bed, cover with Biatain silicone daily and PRN soiled/ dislodged -keep clean and dry -Low air loss mattress -Turn and reposition -Optimize nutrition -Heel protector on both heels -Offload both heels -Assess and f/u accordingly for any changes MIREILLE LAUREANO RN Jun 11, 2017 11:32
[2017-06-11 11:34] LABS: ABG ALLEN TEST POSITIVE; ABG BASE EXCESS 8.7; ABG PCO2 83.1 mmHg (35.0-45.0)
--- NOTE | 2017-06-11 15:22 | Infectious Diseases Prog Note ---
Assessment/Plan Problems: (1) HCAP (healthcare-associated pneumonia) Assessment & Plan: on vancomycin and zosyn empirically, will sputum culture if she produces any (2) Urinary tract infection Assessment & Plan: growing gram negative rods, already on zosyn, await identification (3) Sepsis Assessment & Plan: due to the above, will start wide spectrum antibiotics, and send blood culture (4) Congestive heart failure Assessment & Plan: needs diuresis , consult cardiology Subjective ROS Limited/Unobtainable: Yes Allergies: Coded Allergies: No Known Allergies (Unverified , 06/10/17) Subjective she is still on BIPAP, awake and respond to verbal commands, afebrile Objective Vital Signs Last 24 Hour Vital Signs Date Time Temp Pulse Resp B/P (MAP) Pulse Ox O2 Delivery O2 Flow Rate FiO2 06/11/17 14:40 63 18 95 Facial 50 06/11/17 14:30 50 06/11/17 12:38 64 18 94 Facial 60 06/11/17 12:00 97.7 65 18 99/62 96 Bi-pap 60 06/11/17 12:00 60 06/11/17 12:00 68 06/11/17 10:34 65 18 95 Facial 60 06/11/17 08:40 60 19 97 Facial 70 06/11/17 08:00 70 06/11/17 08:00 62 06/11/17 08:00 97.6 68 19 113/60 96 Bi-pap 70 06/11/17 06:55 64 18 96 Facial 70 06/11/17 05:26 77 19 92 Facial 70 06/11/17 04:00 67 06/11/17 04:00 97.8 74 18 106/65 90 Bi-pap 06/11/17 04:00 50 06/11/17 02:39 73 18 92 Facial 60 06/11/17 01:36 74 19 93 Facial 60 06/11/17 00:00 80 06/11/17 00:00 98.1 61 18 104/72 95 Bi-pap 06/11/17 00:00 50 06/10/17 23:43 78 18 94 Facial 60 06/10/17 22:11 79 18 92 Facial 60 06/10/17 22:10 60 06/10/17 20:00 50 06/10/17 20:00 83 06/10/17 19:53 98.7 83 19 98/72 95 Bi-pap 06/10/17 19:36 92 22 93 Facial 50 06/10/17 17:44 86 18 93 Facial 40 06/10/17 16:00 81 06/10/17 16:00 98.1 83 20 120/76 95 Bi-pap 50 Height (Feet): 5 Height (Inches): 7.00 Weight (Pounds): 200 General Appearance: WD/WN, no acute distress HEENT: normocephalic, atraumatic, anicteric, mucous membranes moist, PERRL, EOMI, supple Respiratory/Chest: no respiratory distress, no accessory muscle use, decreased breath sounds, crackles/rales Cardiovascular: normal rate, regular rhythm, no JVD Abdomen: normal bowel sounds, soft, non tender, no organomegaly, non distended Extremities: no cyanosis, no clubbing Skin: no rash, no lesions, no ulcers Neurologic/Psychiatric: alert Microbiology Date/Time Source Procedure Growth Status 06/10/17 09:00 Blood Blood Culture - Preliminary Resulted 06/10/17 17:00 Sputum Gram Stain - Final Resulted 06/10/17 17:00 Sputum Sputum Culture Pending Resulted 06/10/17 10:50 Urine,Clean Catch Urine Culture - Preliminary Gram Negative Bacillus 1 Resulted Laboratory Tests Test 06/11/17 03:50 06/11/17 11:20 White Blood Count 7.8 K/UL (4.8-10.8) Red Blood Count 6.14 M/UL (4.20-5.40) H Hemoglobin 18.0 G/DL (12.0-16.0) H Hematocrit 58.7 % (37.0-47.0) H Mean Corpuscular Volume 96 FL (80-99) Mean Corpuscular Hemoglobin 29.3 PG (27.0-31.0) Mean Corpuscular Hemoglobin Concent 30.6 G/DL (32.0-36.0) L Red Cell Distribution Width 19.7 % (11.6-14.8) H Platelet Count 153 K/UL (150-450) Mean Platelet Volume 7.5 FL (6.5-10.1) Neutrophils (%) (Auto) 79.0 % (45.0-75.0) H Lymphocytes (%) (Auto) 8.5 % (20.0-45.0) L Monocytes (%) (Auto) 11.8 % (1.0-10.0) H Eosinophils (%) (Auto) 0.0 % (0.0-3.0) Basophils (%) (Auto) 0.7 % (0.0-2.0) Sodium Level 141 mEQ/L (135-145) Potassium Level 5.0 mEQ/L (3.4-4.9) H Chloride Level 99 mEQ/L (98-107) Carbon Dioxide Level 30 mEQ/L (20-30) Anion Gap 12 (5-15) Blood Urea Nitrogen 28 mg/dL (7-23) H Creatinine 1.4 mg/dL (0.5-0.9) H Estimat Glomerular Filtration Rate 38.0 mL/min (>60) Glucose Level 115 mg/dL (74-106) H Hemoglobin A1c 6.5 % (< 6.0) H Uric Acid 8.9 mg/dL (3.0-7.5) H Calcium Level 8.5 mg/dL (8.6-10.2) L Phosphorus Level 6.0 mg/dL (2.5-4.8) H Magnesium Level 1.9 mg/dL (1.7-2.5) Total Bilirubin 0.6 mg/dL (0.0-1.2) Gamma Glutamyl Transpeptidase 26 U/L (5-36) Aspartate Amino Transf (AST/SGOT) 29 U/L (5-40) Alanine Aminotransferase (ALT/SGPT) 28 U/L (3-33) Alkaline Phosphatase 54 U/L (35-104) Total Creatine Kinase 134 U/L (26-140) C-Reactive Protein, Quantitative 1.0 mg/dL (< 0.5) H Pro-B-Type Natriuretic Peptide 3014 pg/mL (0-125) H Total Protein 5.6 g/dL (6.6-8.7) L Albumin 3.3 g/dL (3.5-5.2) L Globulin 2.3 g/dL Albumin/Globulin Ratio 1.4 (1.0-2.7) Triglycerides Level 88 mg/dL (< 150) Cholesterol Level 92 mg/dL (< 200) LDL Cholesterol 48 mg/dL (60-99) L HDL Cholesterol 26 mg/dL (> 60) Cholesterol/HDL Ratio 3.5 (3.3-4.4) Thyroid Stimulating Hormone (TSH) 0.463 uIU/mL (0.300-4.500) Arterial Blood pH 7.300 (7.350-7.450) Arterial Blood Partial Pressure CO2 83.1 mmHg (35.0-45.0) *H Arterial Blood Partial Pressure O2 77.2 mmHg (75.0-100.0) Arterial Blood HCO3 40.1 mmol/L (22.0-26.0) H Arterial Blood Oxygen Saturation 94.1 % (92.0-98.0) Arterial Blood Base Excess 8.7 Perico Test Positive Current Medications Medications (Trade) Dose Ordered Sig/Lloyd Route PRN Reason Start Time Stop Time Status Last Admin Dose Admin Clotrimazole (Lotrimin) 1 applic EVERY 12 HOURS TOPIC 06/11/17 13:00 07/11/17 12:59 06/11/17 14:09 Furosemide 100 mg/ Dextrose 100 ml @ 10 mls/hr Q10H IV 06/10/17 15:00 07/10/17 14:59 06/11/17 11:13 Lamotrigine (LaMICtal) 150 mg DAILY ORAL 06/11/17 09:00 07/11/17 08:59 06/11/17 10:44 Piperacillin Sod/ Tazobactam Sod 3.375 gm/Dextrose 110 ml @ 27.5 mls/hr Q8HR@0200,1000,1800 IVPB 06/10/17 18:00 06/17/17 17:59 06/11/17 10:44 Promethazine HCl/ Codeine (Phenergan with Codeine) 5 ml Q4H PRN ORAL For Cough 06/10/17 14:00 07/10/17 13:59 Trazodone HCl (Desyrel) 150 mg BEDTIME ORAL 06/10/17 21:00 07/10/17 20:59 06/10/17 21:42 Vancomycin HCl (Vanco rx to dose) 1 ea DAILY PRN MISC Per rx protocol 06/10/17 14:00 07/10/17 13:59 Vancomycin HCl 1 gm/Dextrose 275 ml @ 183.708 mls/hr Q24H IVPB 06/11/17 16:00 06/16/17 15:59 Aki Blankenship M.D. Jun 11, 2017 15:22
--- NOTE | 2017-06-11 15:29 | Cardiology Report ---
APPROVED REPORT EKG Measurement Heart [id number] Normal sinus rhythm Possible Left atrial enlargement Right axis deviation Pulmonary disease pattern Possible Right ventricular hypertrophy Septal infarct, age undetermined Abnormal ECG
[2017-06-11] MEDS ORDERED: Vancomycin 1gm/D5W 275ml IVPB SCH ×2 (16:00)
--- NOTE | 2017-06-11 19:53 | General Progress Note ---
Assessment/Plan Assessment/Plan Assessment and Plan 1. Polycythemia, likely with history of underlying chronic obstructive pulmonary disease. At this time, we will hold off on DEION 2 level. We will need to have polycythemia addressed as outpatient. --> continue to monitor counts 2. Elevated prothrombin time and normal PTT. Potential concerning from vitamin K deficiency as well as potentially factor VII deficiency, We will administer vitamin K as well as treat any underlying infectious process. 3. Thrombocytopenia, potentially secondary to underlying healthcare-associated pneumonia. She is on antibiotics. 4. Urinary tract infection. She is on antibiotics, ID following. 5. Congestive heart failure, needs diuresis. --> cardiology following 6. Chronic obstructive pulmonary disease history and difficulty with breathing. Subjective Constitutional: Reports: weakness HEENT: Reports: no symptoms Respiratory: Reports: shortness of breath Gastrointestinal/Abdominal: Reports: no symptoms Genitourinary: Reports: no symptoms Neurologic/Psychiatric: Reports: no symptoms Endocrine: Reports: no symptoms Allergies: Coded Allergies: No Known Allergies (Unverified , 06/10/17) Subjective in bed, on bipap Objective Last 24 Hour Vital Signs Date Time Temp Pulse Resp B/P (MAP) Pulse Ox O2 Delivery O2 Flow Rate FiO2 06/11/17 19:23 62 18 95 Facial 50 06/11/17 16:46 66 18 94 Facial 50 06/11/17 16:00 70 06/11/17 16:00 98.0 66 18 92/53 94 Bi-pap 50 06/11/17 14:40 63 18 95 Facial 50 06/11/17 14:30 50 06/11/17 12:38 64 18 94 Facial 60 06/11/17 12:00 97.7 65 18 99/62 96 Bi-pap 60 06/11/17 12:00 60 06/11/17 12:00 68 06/11/17 10:34 65 18 95 Facial 60 06/11/17 08:40 60 19 97 Facial 70 06/11/17 08:00 70 06/11/17 08:00 62 06/11/17 08:00 97.6 68 19 113/60 96 Bi-pap 70 06/11/17 06:55 64 18 96 Facial 70 06/11/17 05:26 77 19 92 Facial 70 06/11/17 04:00 67 06/11/17 04:00 97.8 74 18 106/65 90 Bi-pap 06/11/17 04:00 50 06/11/17 02:39 73 18 92 Facial 60 06/11/17 01:36 74 19 93 Facial 60 06/11/17 00:00 80 06/11/17 00:00 98.1 61 18 104/72 95 Bi-pap 06/11/17 00:00 50 06/10/17 23:43 78 18 94 Facial 60 06/10/17 22:11 79 18 92 Facial 60 06/10/17 22:10 60 06/10/17 20:00 50 06/10/17 20:00 83 06/10/17 19:53 98.7 83 19 98/72 95 Bi-pap Intake and Output 06/11/17 06/12/17 19:00 07:00 Intake Total 587.4 ml Output Total 4100 ml Balance -3512.6 ml Intake IV Total 587.4 ml Output Urine Total 4100 ml # Voids 4 Laboratory Tests 06/11/17 03:50: White Blood Count 7.8, Red Blood Count 6.14H, Hemoglobin 18.0H, Hematocrit 58.7H , Mean Corpuscular Volume 96, Mean Corpuscular Hemoglobin 29.3, Mean Corpuscular Hemoglobin Concent 30.6L, Red Cell Distribution Width 19.7H, Platelet Count 153, Mean Platelet Volume 7.5, Neutrophils (%) (Auto) 79.0H, Lymphocytes (%) (Auto) 8.5L, Monocytes (%) (Auto) 11.8H, Eosinophils (%) (Auto) 0.0, Basophils (%) (Auto) 0.7, Sodium Level 141, Potassium Level 5.0H, Chloride Level 99, Carbon Dioxide Level 30, Anion Gap 12, Blood Urea Nitrogen 28H, Creatinine 1.4H, Estimat Glomerular Filtration Rate 38.0, Glucose Level 115H, Hemoglobin A1c 6.5H, Uric Acid 8.9H, Calcium Level 8.5L, Phosphorus Level 6.0H, Magnesium Level 1.9, Total Bilirubin 0.6, Gamma Glutamyl Transpeptidase 26, Aspartate Amino Transf (AST/SGOT) 29, Alanine Aminotransferase (ALT/SGPT) 28, Alkaline Phosphatase 54, Total Creatine Kinase 134, C-Reactive Protein, Quantitative 1.0H, Pro-B-Type Natriuretic Peptide 3014H, Total Protein 5.6L, Albumin 3.3L, Globulin 2.3, Albumin/Globulin Ratio 1.4, Triglycerides Level 88, Cholesterol Level 92, LDL Cholesterol 48L, HDL Cholesterol 26, Cholesterol/HDL Ratio 3.5, Thyroid Stimulating Hormone (TSH) 0.463 06/11/17 11:20: Arterial Blood pH 7.300L, Arterial Blood Partial Pressure CO2 83.1*H, Arterial Blood Partial Pressure O2 77.2, Arterial Blood HCO3 40.1H, Arterial Blood Oxygen Saturation 94.1, Arterial Blood Base Excess 8.7, Perico Test Positive Height (Feet): 5 Height (Inches): 7.00 Weight (Pounds): 200 General Appearance: lethargic Respiratory/Chest: respiratory distress - on bipap, decreased breath sounds Skin: warm/dry Steven Chang Jun 11, 2017 19:53
[2017-06-11] MEDS: TraZODone 100mg tab ORAL SCH (22:05)
--- NOTE | 2017-06-11 22:47 | General Progress Note ---
Assessment/Plan Status: stable, progressing Assessment/Plan stable -Lamictal -trazodone Subjective Constitutional: Reports: malaise, weakness Neurologic/Psychiatric: Reports: anxiety, emotional problems Allergies: Coded Allergies: No Known Allergies (Unverified , 06/10/17) Subjective The pt is stable on current meds. Objective Last 24 Hour Vital Signs Date Time Temp Pulse Resp B/P (MAP) Pulse Ox O2 Delivery O2 Flow Rate FiO2 06/11/17 21:01 73 18 93 Facial 50 06/11/17 20:09 97.9 68 20 107/48 94 Bi-pap 50 06/11/17 19:23 62 18 95 Facial 50 06/11/17 16:46 66 18 94 Facial 50 06/11/17 16:00 70 06/11/17 16:00 98.0 66 18 92/53 94 Bi-pap 50 06/11/17 14:40 63 18 95 Facial 50 06/11/17 14:30 50 06/11/17 12:38 64 18 94 Facial 60 06/11/17 12:00 97.7 65 18 99/62 96 Bi-pap 60 06/11/17 12:00 60 06/11/17 12:00 68 06/11/17 10:34 65 18 95 Facial 60 06/11/17 08:40 60 19 97 Facial 70 06/11/17 08:00 70 06/11/17 08:00 62 06/11/17 08:00 97.6 68 19 113/60 96 Bi-pap 70 06/11/17 06:55 64 18 96 Facial 70 06/11/17 05:26 77 19 92 Facial 70 06/11/17 04:00 67 06/11/17 04:00 97.8 74 18 106/65 90 Bi-pap 06/11/17 04:00 50 06/11/17 02:39 73 18 92 Facial 60 06/11/17 01:36 74 19 93 Facial 60 06/11/17 00:00 80 06/11/17 00:00 98.1 61 18 104/72 95 Bi-pap 06/11/17 00:00 50 06/10/17 23:43 78 18 94 Facial 60 Intake and Output 06/11/17 06/12/17 19:00 07:00 Intake Total 587.4 ml Output Total 4100 ml Balance -3512.6 ml Intake IV Total 587.4 ml Output Urine Total 4100 ml # Voids 4 Laboratory Tests 06/11/17 03:50: White Blood Count 7.8, Red Blood Count 6.14H, Hemoglobin 18.0H, Hematocrit 58.7H , Mean Corpuscular Volume 96, Mean Corpuscular Hemoglobin 29.3, Mean Corpuscular Hemoglobin Concent 30.6L, Red Cell Distribution Width 19.7H, Platelet Count 153, Mean Platelet Volume 7.5, Neutrophils (%) (Auto) 79.0H, Lymphocytes (%) (Auto) 8.5L, Monocytes (%) (Auto) 11.8H, Eosinophils (%) (Auto) 0.0, Basophils (%) (Auto) 0.7, Sodium Level 141, Potassium Level 5.0H, Chloride Level 99, Carbon Dioxide Level 30, Anion Gap 12, Blood Urea Nitrogen 28H, Creatinine 1.4H, Estimat Glomerular Filtration Rate 38.0, Glucose Level 115H, Hemoglobin A1c 6.5H, Uric Acid 8.9H, Calcium Level 8.5L, Phosphorus Level 6.0H, Magnesium Level 1.9, Total Bilirubin 0.6, Gamma Glutamyl Transpeptidase 26, Aspartate Amino Transf (AST/SGOT) 29, Alanine Aminotransferase (ALT/SGPT) 28, Alkaline Phosphatase 54, Total Creatine Kinase 134, C-Reactive Protein, Quantitative 1.0H, Pro-B-Type Natriuretic Peptide 3014H, Total Protein 5.6L, Albumin 3.3L, Globulin 2.3, Albumin/Globulin Ratio 1.4, Triglycerides Level 88, Cholesterol Level 92, LDL Cholesterol 48L, HDL Cholesterol 26, Cholesterol/HDL Ratio 3.5, Thyroid Stimulating Hormone (TSH) 0.463 06/11/17 11:20: Arterial Blood pH 7.300L, Arterial Blood Partial Pressure CO2 83.1*H, Arterial Blood Partial Pressure O2 77.2, Arterial Blood HCO3 40.1H, Arterial Blood Oxygen Saturation 94.1, Arterial Blood Base Excess 8.7, Perico Test Positive Height (Feet): 5 Height (Inches): 7.00 Weight (Pounds): 200 General Appearance: no apparent distress, alert Neurologic: alert, oriented x 3, responsive, depressed affect Don Parekh M.D. Jun 11, 2017 22:47
--- NOTE | 2017-06-11 23:52 | Cardiology Progress Note ---
Assessment/Plan Assessment/Plan 1. Cor pulmonale with moderate to severe pulmonary HTN, requires right heart cath to rule out NO reactivity, verification of pulmonary HTN and to rule out pulmonary venous hypertension (echo reveals small sized LV, normal LV wall motion and LVEF of 60%), Elevated BNP is due to RV failure. Agree with diuretics , LV preload is dependent on RV function which is severely compromised, avoid aggressive diuresis. Start digoxin. Work up of pulmonary HTN required, including VQ scan to rule out chronic PE, rule out connective tissue disease, HIV disease, etc. 2. Hypoxemia on bipap mask, possible obesity hypoventilation syndrome, repeat CXR. Subjective Subjective Sinus rhythm at 68. Bipap mask. Objective Last 24 Hour Vital Signs Date Time Temp Pulse Resp B/P (MAP) Pulse Ox O2 Delivery O2 Flow Rate FiO2 06/11/17 23:00 69 18 93 Facial 50 06/11/17 21:01 73 18 93 Facial 50 06/11/17 20:09 97.9 68 20 107/48 94 Bi-pap 50 06/11/17 20:00 50 06/11/17 19:23 62 18 95 Facial 50 06/11/17 16:46 66 18 94 Facial 50 06/11/17 16:00 70 06/11/17 16:00 98.0 66 18 92/53 94 Bi-pap 50 06/11/17 14:40 63 18 95 Facial 50 06/11/17 14:30 50 06/11/17 12:38 64 18 94 Facial 60 06/11/17 12:00 97.7 65 18 99/62 96 Bi-pap 60 06/11/17 12:00 60 06/11/17 12:00 68 06/11/17 10:34 65 18 95 Facial 60 06/11/17 08:40 60 19 97 Facial 70 06/11/17 08:00 70 06/11/17 08:00 62 06/11/17 08:00 97.6 68 19 113/60 96 Bi-pap 70 06/11/17 06:55 64 18 96 Facial 70 06/11/17 05:26 77 19 92 Facial 70 06/11/17 04:00 67 06/11/17 04:00 97.8 74 18 106/65 90 Bi-pap 06/11/17 04:00 50 06/11/17 02:39 73 18 92 Facial 60 06/11/17 01:36 74 19 93 Facial 60 06/11/17 00:00 80 06/11/17 00:00 98.1 61 18 104/72 95 Bi-pap 06/11/17 00:00 50 Intake and Output 06/11/17 06/12/17 19:00 07:00 Intake Total 587.4 ml Output Total 4100 ml Balance -3512.6 ml Intake IV Total 587.4 ml Output Urine Total 4100 ml # Voids 4 2D Echo: EF 60%, Severely enlarged RA/RV, Mod pul HTN, RV pressure/volume overload Laboratory Tests Test 06/11/17 03:50 06/11/17 11:20 White Blood Count 7.8 K/UL (4.8-10.8) Red Blood Count 6.14 M/UL (4.20-5.40) H Hemoglobin 18.0 G/DL (12.0-16.0) H Hematocrit 58.7 % (37.0-47.0) H Mean Corpuscular Volume 96 FL (80-99) Mean Corpuscular Hemoglobin 29.3 PG (27.0-31.0) Mean Corpuscular Hemoglobin Concent 30.6 G/DL (32.0-36.0) L Red Cell Distribution Width 19.7 % (11.6-14.8) H Platelet Count 153 K/UL (150-450) Mean Platelet Volume 7.5 FL (6.5-10.1) Neutrophils (%) (Auto) 79.0 % (45.0-75.0) H Lymphocytes (%) (Auto) 8.5 % (20.0-45.0) L Monocytes (%) (Auto) 11.8 % (1.0-10.0) H Eosinophils (%) (Auto) 0.0 % (0.0-3.0) Basophils (%) (Auto) 0.7 % (0.0-2.0) Sodium Level 141 mEQ/L (135-145) Potassium Level 5.0 mEQ/L (3.4-4.9) H Chloride Level 99 mEQ/L (98-107) Carbon Dioxide Level 30 mEQ/L (20-30) Anion Gap 12 (5-15) Blood Urea Nitrogen 28 mg/dL (7-23) H Creatinine 1.4 mg/dL (0.5-0.9) H Estimat Glomerular Filtration Rate 38.0 mL/min (>60) Glucose Level 115 mg/dL (74-106) H Hemoglobin A1c 6.5 % (< 6.0) H Uric Acid 8.9 mg/dL (3.0-7.5) H Calcium Level 8.5 mg/dL (8.6-10.2) L Phosphorus Level 6.0 mg/dL (2.5-4.8) H Magnesium Level 1.9 mg/dL (1.7-2.5) Total Bilirubin 0.6 mg/dL (0.0-1.2) Gamma Glutamyl Transpeptidase 26 U/L (5-36) Aspartate Amino Transf (AST/SGOT) 29 U/L (5-40) Alanine Aminotransferase (ALT/SGPT) 28 U/L (3-33) Alkaline Phosphatase 54 U/L (35-104) Total Creatine Kinase 134 U/L (26-140) C-Reactive Protein, Quantitative 1.0 mg/dL (< 0.5) H Pro-B-Type Natriuretic Peptide 3014 pg/mL (0-125) H Total Protein 5.6 g/dL (6.6-8.7) L Albumin 3.3 g/dL (3.5-5.2) L Globulin 2.3 g/dL Albumin/Globulin Ratio 1.4 (1.0-2.7) Triglycerides Level 88 mg/dL (< 150) Cholesterol Level 92 mg/dL (< 200) LDL Cholesterol 48 mg/dL (60-99) L HDL Cholesterol 26 mg/dL (> 60) Cholesterol/HDL Ratio 3.5 (3.3-4.4) Thyroid Stimulating Hormone (TSH) 0.463 uIU/mL (0.300-4.500) Arterial Blood pH 7.300 (7.350-7.450) Arterial Blood Partial Pressure CO2 83.1 mmHg (35.0-45.0) *H Arterial Blood Partial Pressure O2 77.2 mmHg (75.0-100.0) Arterial Blood HCO3 40.1 mmol/L (22.0-26.0) H Arterial Blood Oxygen Saturation 94.1 % (92.0-98.0) Arterial Blood Base Excess 8.7 Perico Test Positive Microbiology Date/Time Source Procedure Growth Status 06/10/17 09:00 Blood Blood Culture - Preliminary Resulted 8/22/17 17:00 Sputum Gram Stain - Final Resulted 06/10/17 17:00 Sputum Sputum Culture Pending Resulted 06/10/17 10:50 Urine,Clean Catch Urine Culture - Preliminary Gram Negative Bacillus 1 Resulted Objective HEENT: Normocephalic and atraumatic. Pupils reactive to light. Pale sclera. Unable to assess oral mucosa due to BiPAP mask. NECK: Cannot assess JVD. CARDIOVASCULAR: Regular rate and rhythm. No murmurs, gallops or rubs LUNGS: She had crackles. Diminished breathing sounds at the bases. Normal breathing effort. ABDOMEN: Soft, obese, nontender, and nondistended. Positive bowel sounds. No hepatosplenomegaly. No ascites. EXTREMITIES: No edema, clubbing or cyanosis. VIVIANE EDUARDO Jun 11, 2017 23:52
--- NOTE | 2017-06-12 01:31 | History and Physical Report ---
DATE OF ADMISSION: 06/10/2017 HISTORY OF PRESENT ILLNESS: The patient is admitted for increased shortness of breath. The patient is on BiPAP. The patient also has a psychiatric history. The patient is admitted for pulmonary edema, fluid overload, and CHF, and also admitted for UTI. She is on BiPAP as well as azotemia and elevated hemoglobin. Cannot obtain full detailed history from the patient. The patient is on BiPAP, but the only thing that she complains of is shortness of breath. Denies coughing. Denies wheezing. Denies chest pain. Apparently, the orthopnea and dizziness were getting worse she could not bear and came to the hospital. PAST MEDICAL HISTORY: CHF as well as hyperlipidemia, hypertension, neuropathy, possible COPD, possible depression, and possible mood disorder. PAST SURGICAL HISTORY: None. ALLERGIES: No known allergies. MEDICATIONS: Lipitor, Saphris, benazepril, gabapentin, isosorbide mononitrate, Lamictal, magnesium oxide, montelukast, trazodone, and Spiriva. SOCIAL HISTORY: The patient smokes. No history of drug abuse. No history of alcohol abuse. FAMILY HISTORY: Noncontributory. REVIEW OF SYSTEMS: HEENT: Denies headaches. Respiratory: Reports shortness of breath. Denies cough. Denies wheezing. Cardiovascular: Denies chest pain or orthopnea. Gastrointestinal: Denies nausea, vomiting, or diarrhea. Extremities: . Central Nervous System: Denies change in vision or speech pattern. PHYSICAL EXAMINATION: VITAL SIGNS: Temperature is 97.8 degrees, pulse 67, and blood pressure 106/65. HEENT: PERRLA. CHEST: Bibasilar rales. CARDIOVASCULAR: Regular rate and rhythm. GASTROINTESTINAL: Soft. Positive bowel sounds. Nondistended. EXTREMITIES: A 1+ edema. She has generalized weakness, on BiPAP. Reflexes are equal on both sides. LABORATORY DATA: WBC of 8, hemoglobin 17.1, and platelets 143,000. Sodium 140, potassium 5.7, BUN 28, creatinine 1.9, and glucose of 136. ASSESSMENT: 1. Respiratory insufficiency, on BiPAP. 2. Azotemia. 3. Hyperkalemia. 4. Elevated hemoglobin. PLAN: I have asked Dr. Loo, Dr. Chang, Dr. Parekh, Dr. Blankenship, Dr. Nguyen, and Dr. Suarez to see the patient for the above-mentioned diagnoses and treatment. Olu Calero M.D. DR: RAMSEY JOB#: [id number] CC:
[2017-06-12] MEDS: Piperacillin/Tazobactam 3.375 GM in D5W 110 ML IVPB SCH ×3 (02:47→17:33)
[2017-06-12 04:00] VITALS: BP 111/53
[2017-06-12 05:30] LABS: BASOPHILS % (AUTO) 0.6 % (0.0-2.0); EOSINOPHILS % (AUTO) 0.1 % (0.0-3.0); LYMPHOCYTES % (AUTO) 19.3 % (20.0-45.0); MEAN CORPUSCULAR HEMOGLOBIN 28.8 PG (27.0-31.0); MEAN CORPUSCULAR VOLUME 96 FL (80-99); MEAN PLATELET VOLUME 7.3 FL (6.5-10.1); MONOCYTES % (AUTO) 9.3 % (1.0-10.0); NEUTROPHILS % (AUTO) 70.7 % (45.0-75.0); PLATELET COUNT 147 K/UL (150-450); RED BLOOD COUNT 6.21 M/UL (4.20-5.40); RED CELL DISTRIBUTION WIDTH 19.6 % (11.6-14.8); WHITE BLOOD COUNT 9.2 K/UL (4.8-10.8)
[2017-06-12 05:59] LABS: HEMOGLOBIN A1C 6.4 % (< 6.0)
[2017-06-12 06:00] LABS: ALANINE AMINOTRANSFERASE 24 U/L (3-33); ALBUMIN/GLOBULIN RATIO 1.2 (1.0-2.7); ANION GAP 5 (5-15); ASPARTATE AMINO TRANSFERASE 22 U/L (5-40); CALCIUM 8.5 mg/dL (8.6-10.2); CHLORIDE 92 mEQ/L (98-107); CREATININE 1.1 mg/dL (0.5-0.9); CRP QUANT 0.6 mg/dL (< 0.5); GLOMERULAR FILTRATION RATE 50.2 mL/min (>60); HEMOLYSIS 8; MAGNESIUM 1.4 mg/dL (1.7-2.5); PHOSPHORUS 3.7 mg/dL (2.5-4.8); POTASSIUM 3.7 mEQ/L (3.4-4.9); SODIUM 143 mEQ/L (135-145); TOTAL PROTEIN 5.7 g/dL (6.6-8.7); URIC ACID 8.2 mg/dL (3.0-7.5)
[2017-06-12 06:04] LABS: AMMONIA 75 umol/L (11-51)
[2017-06-12 06:08] LABS: CARBON DIOXIDE 46 mEQ/L (20-30)
[2017-06-12 06:17] VITALS: BP 111/53
[2017-06-12 07:28] LABS: ABG ALLEN TEST POSITIVE; ABG BASE EXCESS 16.7; ABG PCO2 91.7 mmHg (35.0-45.0)
[2017-06-12 08:00] VITALS: BP 118/74
[2017-06-12] MEDS: LaMICtal 150mg tab ORAL SCH (10:15)
--- NOTE | 2017-06-12 11:52 | Diagnostic Imaging Report ---
Indication: Dyspnea Comparison: 06/11/17 A single view chest radiograph was obtained. Findings: Interstitial edema with cardiomegaly and suspected bilateral pleural effusions. Findings appear unchanged. Impression: No significant global climate change analyst the last day.
[2017-06-12 12:00] VITALS: BP 120/65
--- NOTE | 2017-06-12 12:05 | General Progress Note ---
Assessment/Plan Status: unchanged Status Narrative retaining CO2 Assessment/Plan - Cr 1.4 now down to 1.1 - COPD - HCAP (healthcare-associated pneumonia) - Urinary tract infection - Sepsis - Congestive heart failure Monitor lytes and renal parameters avoid nephrotoxics optimize pulm and cardiac status Subjective ROS Limited/Unobtainable: No Constitutional: Reports: malaise, weakness Allergies: Coded Allergies: No Known Allergies (Unverified , 06/10/17) Objective Last 24 Hour Vital Signs Date Time Temp Pulse Resp B/P (MAP) Pulse Ox O2 Delivery O2 Flow Rate FiO2 06/12/17 11:25 50 18 98 Facial 50 06/12/17 09:15 60 18 99 Facial 50 06/12/17 08:03 75 06/12/17 08:00 97.0 63 20 118/74 97 Bi-pap 50 06/12/17 08:00 50 06/12/17 06:38 53 18 99 Facial 50 06/12/17 06:17 98.2 70 19 111/53 96 Bi-pap 50 06/12/17 05:26 71 17 94 Facial 50 06/12/17 04:00 98.2 70 19 111/53 96 Bi-pap 50 06/12/17 04:00 60 06/12/17 03:03 69 18 94 Facial 50 06/12/17 01:05 70 18 94 Facial 50 06/12/17 00:00 69 06/12/17 00:00 50 06/11/17 23:54 97.9 68 23 113/55 95 06/11/17 23:00 69 18 93 Facial 50 06/11/17 21:01 73 18 93 Facial 50 06/11/17 20:09 97.9 68 20 107/48 94 Bi-pap 50 06/11/17 20:00 50 06/11/17 19:23 63 06/11/17 19:23 62 18 95 Facial 50 06/11/17 16:46 66 18 94 Facial 50 06/11/17 16:00 70 06/11/17 16:00 98.0 66 18 92/53 94 Bi-pap 50 06/11/17 14:40 63 18 95 Facial 50 06/11/17 14:30 50 06/11/17 12:38 64 18 94 Facial 60 Laboratory Tests 06/12/17 03:50: White Blood Count 9.2, Red Blood Count 6.21H, Hemoglobin 17.9H, Hematocrit 59.5H , Mean Corpuscular Volume 96, Mean Corpuscular Hemoglobin 28.8, Mean Corpuscular Hemoglobin Concent 30.0L, Red Cell Distribution Width 19.6H, Platelet Count 147L, Mean Platelet Volume 7.3, Neutrophils (%) (Auto) 70.7, Lymphocytes (%) (Auto) 19.3L, Monocytes (%) (Auto) 9.3, Eosinophils (%) (Auto) 0.1, Basophils (%) (Auto) 0.6, Sodium Level 143, Potassium Level 3.7, Chloride Level 92L, Carbon Dioxide Level 46*H, Anion Gap 5, Blood Urea Nitrogen 25H, Creatinine 1.1H, Estimat Glomerular Filtration Rate 50.2, Glucose Level 79, Hemoglobin A1c 6.4H, Uric Acid 8.2H, Calcium Level 8.5L, Phosphorus Level 3.7, Magnesium Level 1.4L, Total Bilirubin 0.8, Gamma Glutamyl Transpeptidase 26, Aspartate Amino Transf (AST/SGOT) 22, Alanine Aminotransferase (ALT/SGPT) 24, Alkaline Phosphatase 48, Ammonia 75H, Total Creatine Kinase 46, C-Reactive Protein, Quantitative 0.6H, Pro-B-Type Natriuretic Peptide 1151H, Total Protein 5.7L, Albumin 3.2L, Globulin 2.5, Albumin/Globulin Ratio 1.2 06/12/17 07:20: Arterial Blood pH 7.340L, Arterial Blood Partial Pressure CO2 91.7*H, Arterial Blood Partial Pressure O2 95.6, Arterial Blood HCO3 49.0H, Arterial Blood Oxygen Saturation 96.5, Arterial Blood Base Excess 16.7, Perico Test Positive Height (Feet): 5 Height (Inches): 7.00 Weight (Pounds): 200 General Appearance: other EENT: other - On BIPAP Cardiovascular: bradycardia Respiratory/Chest: decreased breath sounds Abdomen: distended Objective no change in PE JENNIFER OVALLE Jun 12, 2017 12:05
--- NOTE | 2017-06-12 12:27 | Pulmonology Progress Note ---
Assessment/Plan Problems: (1) Acute respiratory failure (2) COPD (chronic obstructive pulmonary disease) (3) Congestive heart failure (4) Sepsis Assessment/Plan pt diuresed 10 liters sofar BNP decreasing check electrolytes cxr bnp in am mental status is ok despite high CO2 Subjective ROS Limited/Unobtainable: No Constitutional: Reports: no symptoms HEENT: Repors: no symptoms Respiratory: Reports: no symptoms Allergies: Coded Allergies: No Known Allergies (Unverified , 06/10/17) Objective Last 24 Hour Vital Signs Date Time Temp Pulse Resp B/P (MAP) Pulse Ox O2 Delivery O2 Flow Rate FiO2 06/12/17 11:25 50 18 98 Facial 50 06/12/17 09:15 60 18 99 Facial 50 06/12/17 08:03 75 06/12/17 08:00 97.0 63 20 118/74 97 Bi-pap 50 06/12/17 08:00 50 06/12/17 06:38 53 18 99 Facial 50 06/12/17 06:17 98.2 70 19 111/53 96 Bi-pap 50 06/12/17 05:26 71 17 94 Facial 50 06/12/17 04:00 98.2 70 19 111/53 96 Bi-pap 50 06/12/17 04:00 60 06/12/17 03:03 69 18 94 Facial 50 06/12/17 01:05 70 18 94 Facial 50 06/12/17 00:00 69 06/12/17 00:00 50 06/11/17 23:54 97.9 68 23 113/55 95 06/11/17 23:00 69 18 93 Facial 50 06/11/17 21:01 73 18 93 Facial 50 06/11/17 20:09 97.9 68 20 107/48 94 Bi-pap 50 06/11/17 20:00 50 06/11/17 19:23 63 06/11/17 19:23 62 18 95 Facial 50 06/11/17 16:46 66 18 94 Facial 50 06/11/17 16:00 70 06/11/17 16:00 98.0 66 18 92/53 94 Bi-pap 50 06/11/17 14:40 63 18 95 Facial 50 06/11/17 14:30 50 06/11/17 12:38 64 18 94 Facial 60 General Appearance: WD/WN HEENT: normocephalic, atraumatic Respiratory/Chest: chest wall non-tender, lungs clear Cardiovascular: normal peripheral pulses, normal rate Abdomen: normal bowel sounds, no organomegaly Genitourinary: normal external genitalia Extremities: no clubbing Skin: no ulcers Neurologic/Psychiatric: no motor/sensory deficits Lymphatic: no neck adenopathy Microbiology Date/Time Source Procedure Growth Status 06/10/17 09:10 Blood Blood Culture - Preliminary NO GROWTH AFTER 24 HOURS Resulted 06/10/17 09:00 Blood Blood Culture - Preliminary Staphylococcus Sp Coag Neg Resulted 06/10/17 17:00 Sputum Gram Stain - Final Complete 06/10/17 17:00 Sputum Sputum Culture - Final NORMAL UPPER RESPIRATORY JESS PRESENT Complete 06/10/17 10:50 Urine,Clean Catch Urine Culture - Final Klebsiella Pneumoniae Complete Laboratory Tests 06/12/17 03:50: White Blood Count 9.2, Red Blood Count 6.21H, Hemoglobin 17.9H, Hematocrit 59.5H , Mean Corpuscular Volume 96, Mean Corpuscular Hemoglobin 28.8, Mean Corpuscular Hemoglobin Concent 30.0L, Red Cell Distribution Width 19.6H, Platelet Count 147L, Mean Platelet Volume 7.3, Neutrophils (%) (Auto) 70.7, Lymphocytes (%) (Auto) 19.3L, Monocytes (%) (Auto) 9.3, Eosinophils (%) (Auto) 0.1, Basophils (%) (Auto) 0.6, Sodium Level 143, Potassium Level 3.7, Chloride Level 92L, Carbon Dioxide Level 46*H, Anion Gap 5, Blood Urea Nitrogen 25H, Creatinine 1.1H, Estimat Glomerular Filtration Rate 50.2, Glucose Level 79, Hemoglobin A1c 6.4H, Uric Acid 8.2H, Calcium Level 8.5L, Phosphorus Level 3.7, Magnesium Level 1.4L, Total Bilirubin 0.8, Gamma Glutamyl Transpeptidase 26, Aspartate Amino Transf (AST/SGOT) 22, Alanine Aminotransferase (ALT/SGPT) 24, Alkaline Phosphatase 48, Ammonia 75H, Total Creatine Kinase 46, C-Reactive Protein, Quantitative 0.6H, Pro-B-Type Natriuretic Peptide 1151H, Total Protein 5.7L, Albumin 3.2L, Globulin 2.5, Albumin/Globulin Ratio 1.2 06/12/17 07:20: Arterial Blood pH 7.340L, Arterial Blood Partial Pressure CO2 91.7*H, Arterial Blood Partial Pressure O2 95.6, Arterial Blood HCO3 49.0H, Arterial Blood Oxygen Saturation 96.5, Arterial Blood Base Excess 16.7, Perico Test Positive Current Medications Medications (Trade) Dose Ordered Sig/Lloyd Route PRN Reason Start Time Stop Time Status Last Admin Dose Admin Clotrimazole (Lotrimin) 1 applic EVERY 12 HOURS TOPIC 06/11/17 13:00 07/11/17 12:59 06/12/17 10:16 Furosemide 100 mg/ Dextrose 100 ml @ 10 mls/hr Q10H IV 06/10/17 15:00 07/10/17 14:59 06/12/17 07:57 Lamotrigine (LaMICtal) 150 mg DAILY ORAL 06/11/17 09:00 07/11/17 08:59 06/12/17 10:15 Piperacillin Sod/ Tazobactam Sod 3.375 gm/Dextrose 110 ml @ 27.5 mls/hr Q8HR@0200,1000,1800 IVPB 06/10/17 18:00 06/17/17 17:59 06/12/17 10:15 Promethazine HCl/ Codeine (Phenergan with Codeine) 5 ml Q4H PRN ORAL For Cough 06/10/17 14:00 07/10/17 13:59 Trazodone HCl (Desyrel) 150 mg BEDTIME ORAL 06/10/17 21:00 07/10/17 20:59 06/11/17 22:05 Vancomycin HCl (Vanco rx to dose) 1 ea DAILY PRN MISC Per rx protocol 06/10/17 14:00 07/10/17 13:59 Vancomycin HCl 1 gm/Dextrose 275 ml @ 183.708 mls/hr Q24H IVPB 06/11/17 16:00 06/16/17 15:59 06/11/17 15:55 MARIPOSA BLACKBURN Jun 12, 2017 12:27
--- NOTE | 2017-06-12 13:38 | Diagnostic Imaging Report ---
APPROVED REPORT CPT Code: 25458 Present Symptoms Shortness of breath Comments: Embolism prevention BILATERAL: Imaging reveals a patent deep venous system bilaterally. There is no evidence of thrombus within the femoral, popliteal or tibial segments. The greater saphenous veins are also within normal limits. Doppler indicates normal spontaneous flow within these segments.
[2017-06-12 16:00] VITALS: BP 124/69
--- NOTE | 2017-06-12 16:06 | Infectious Diseases Prog Note ---
Assessment/Plan Problems: (1) HCAP (healthcare-associated pneumonia) Assessment & Plan: on vancomycin and zosyn empirically, await sputum culture (2) Urinary tract infection Assessment & Plan: due to Klebsiella pneumonia, already on zosyn (3) Sepsis Assessment & Plan: due to the above, will start wide spectrum antibiotics, blood culture grew coag negative staph from one bottle , most likely contaminant (4) Congestive heart failure Assessment & Plan: needs diuresis , consult cardiology Subjective ROS Limited/Unobtainable: Yes Allergies: Coded Allergies: No Known Allergies (Unverified , 06/10/17) Subjective she is still on BIPAP, awake and comfortable, respond to verbal commands, afebrile Objective Vital Signs Last 24 Hour Vital Signs Date Time Temp Pulse Resp B/P (MAP) Pulse Ox O2 Delivery O2 Flow Rate FiO2 06/12/17 14:32 54 19 94 Facial 50 06/12/17 12:44 59 18 98 Facial 50 06/12/17 12:39 56 06/12/17 12:00 50 06/12/17 12:00 97.5 56 20 120/65 96 Bi-pap 50 06/12/17 11:25 50 18 98 Facial 50 06/12/17 09:15 60 18 99 Facial 50 06/12/17 08:03 57 06/12/17 08:00 97.0 63 20 118/74 97 Bi-pap 50 06/12/17 08:00 50 06/12/17 06:38 53 18 99 Facial 50 06/12/17 06:17 98.2 70 19 111/53 96 Bi-pap 50 06/12/17 05:26 71 17 94 Facial 50 06/12/17 04:00 98.2 70 19 111/53 96 Bi-pap 50 06/12/17 04:00 60 06/12/17 03:03 69 18 94 Facial 50 06/12/17 01:05 70 18 94 Facial 50 06/12/17 00:00 69 06/12/17 00:00 50 06/11/17 23:54 97.9 68 23 113/55 95 06/11/17 23:00 69 18 93 Facial 50 06/11/17 21:01 73 18 93 Facial 50 06/11/17 20:09 97.9 68 20 107/48 94 Bi-pap 50 06/11/17 20:00 50 06/11/17 19:23 63 06/11/17 19:23 62 18 95 Facial 50 06/11/17 16:46 66 18 94 Facial 50 06/11/17 16:00 70 06/11/17 16:00 98.0 66 18 92/53 94 Bi-pap 50 Height (Feet): 5 Height (Inches): 7.00 Weight (Pounds): 200 General Appearance: WD/WN, no acute distress HEENT: normocephalic, atraumatic, anicteric, mucous membranes moist, PERRL Respiratory/Chest: chest wall non-tender, no respiratory distress, no accessory muscle use, decreased breath sounds, crackles/rales Cardiovascular: normal peripheral pulses, normal rate, regular rhythm, no gallop/murmur, no JVD Abdomen: normal bowel sounds, soft, non tender, no organomegaly, non distended , no mass, no scars Extremities: no cyanosis, no clubbing Skin: no rash, no lesions Microbiology Date/Time Source Procedure Growth Status 06/10/17 09:10 Blood Blood Culture - Preliminary NO GROWTH AFTER 24 HOURS Resulted 06/10/17 09:00 Blood Blood Culture - Preliminary Staphylococcus Sp Coag Neg Resulted 06/10/17 17:00 Sputum Gram Stain - Final Complete 06/10/17 17:00 Sputum Sputum Culture - Final NORMAL UPPER RESPIRATORY JSES PRESENT Complete 06/10/17 10:50 Urine,Clean Catch Urine Culture - Final Klebsiella Pneumoniae Complete Laboratory Tests Test 06/12/17 03:50 06/12/17 07:20 White Blood Count 9.2 K/UL (4.8-10.8) Red Blood Count 6.21 M/UL (4.20-5.40) H Hemoglobin 17.9 G/DL (12.0-16.0) H Hematocrit 59.5 % (37.0-47.0) H Mean Corpuscular Volume 96 FL (80-99) Mean Corpuscular Hemoglobin 28.8 PG (27.0-31.0) Mean Corpuscular Hemoglobin Concent 30.0 G/DL (32.0-36.0) L Red Cell Distribution Width 19.6 % (11.6-14.8) H Platelet Count 147 K/UL (150-450) L Mean Platelet Volume 7.3 FL (6.5-10.1) Neutrophils (%) (Auto) 70.7 % (45.0-75.0) Lymphocytes (%) (Auto) 19.3 % (20.0-45.0) L Monocytes (%) (Auto) 9.3 % (1.0-10.0) Eosinophils (%) (Auto) 0.1 % (0.0-3.0) Basophils (%) (Auto) 0.6 % (0.0-2.0) Sodium Level 143 mEQ/L (135-145) Potassium Level 3.7 mEQ/L (3.4-4.9) Chloride Level 92 mEQ/L (98-107) L Carbon Dioxide Level 46 mEQ/L (20-30) *H Anion Gap 5 (5-15) Blood Urea Nitrogen 25 mg/dL (7-23) H Creatinine 1.1 mg/dL (0.5-0.9) H Estimat Glomerular Filtration Rate 50.2 mL/min (>60) Glucose Level 79 mg/dL (74-106) Hemoglobin A1c 6.4 % (< 6.0) H Uric Acid 8.2 mg/dL (3.0-7.5) H Calcium Level 8.5 mg/dL (8.6-10.2) L Phosphorus Level 3.7 mg/dL (2.5-4.8) Magnesium Level 1.4 mg/dL (1.7-2.5) L Total Bilirubin 0.8 mg/dL (0.0-1.2) Gamma Glutamyl Transpeptidase 26 U/L (5-36) Aspartate Amino Transf (AST/SGOT) 22 U/L (5-40) Alanine Aminotransferase (ALT/SGPT) 24 U/L (3-33) Alkaline Phosphatase 48 U/L (35-104) Ammonia 75 umol/L (11-51) H Total Creatine Kinase 46 U/L (26-140) C-Reactive Protein, Quantitative 0.6 mg/dL (< 0.5) H Pro-B-Type Natriuretic Peptide 1151 pg/mL (0-125) H Total Protein 5.7 g/dL (6.6-8.7) L Albumin 3.2 g/dL (3.5-5.2) L Globulin 2.5 g/dL Albumin/Globulin Ratio 1.2 (1.0-2.7) Arterial Blood pH 7.340 (7.350-7.450) Arterial Blood Partial Pressure CO2 91.7 mmHg (35.0-45.0) *H Arterial Blood Partial Pressure O2 95.6 mmHg (75.0-100.0) Arterial Blood HCO3 49.0 mmol/L (22.0-26.0) H Arterial Blood Oxygen Saturation 96.5 % (92.0-98.0) Arterial Blood Base Excess 16.7 Perico Test Positive Current Medications Medications (Trade) Dose Ordered Sig/Lloyd Route PRN Reason Start Time Stop Time Status Last Admin Dose Admin Clotrimazole (Lotrimin) 1 applic EVERY 12 HOURS TOPIC 06/11/17 13:00 07/11/17 12:59 06/12/17 10:16 Furosemide 100 mg/ Dextrose 100 ml @ 10 mls/hr Q10H IV 06/10/17 15:00 07/10/17 14:59 06/12/17 07:57 Lamotrigine (LaMICtal) 150 mg DAILY ORAL 06/11/17 09:00 07/11/17 08:59 06/12/17 10:15 Piperacillin Sod/ Tazobactam Sod 3.375 gm/Dextrose 110 ml @ 27.5 mls/hr Q8HR@0200,1000,1800 IVPB 06/10/17 18:00 06/17/17 17:59 06/12/17 10:15 Promethazine HCl/ Codeine (Phenergan with Codeine) 5 ml Q4H PRN ORAL For Cough 06/10/17 14:00 07/10/17 13:59 Trazodone HCl (Desyrel) 150 mg BEDTIME ORAL 06/10/17 21:00 07/10/17 20:59 06/11/17 22:05 Vancomycin HCl (Vanco rx to dose) 1 ea DAILY PRN MISC Per rx protocol 06/10/17 14:00 07/10/17 13:59 Vancomycin/Sodium Chloride 250 ml @ 166.667 mls/hr Q12HR@0400,1600 IVPB 06/12/17 16:00 06/17/17 15:59 Aki Blankenship M.D. Jun 12, 2017 16:06
[2017-06-12] MEDS: Vancomycin 750mg/NS 250ml IVPB SCH (16:20)
--- NOTE | 2017-06-12 18:08 | General Progress Note ---
Assessment/Plan Assessment/Plan Assessment and Plan 1. Polycythemia, likely with history of underlying chronic obstructive pulmonary disease. At this time, we will hold off on DEION 2 level. We will need to have polycythemia addressed as outpatient. --> continue to monitor counts 2. Elevated prothrombin time and normal PTT. --> vitamin k given 3. Thrombocytopenia, potentially secondary to underlying healthcare-associated pneumonia. She is on antibiotics. 4. Urinary tract infection. She is on antibiotics, ID following. 5. Congestive heart failure, needs diuresis. --> cardiology following 6. Chronic obstructive pulmonary disease history and difficulty with breathing. Subjective Constitutional: Reports: no symptoms HEENT: Reports: no symptoms Cardiovascular: Reports: no symptoms Respiratory: Reports: no symptoms Gastrointestinal/Abdominal: Reports: no symptoms Genitourinary: Reports: no symptoms Neurologic/Psychiatric: Reports: no symptoms Endocrine: Reports: no symptoms Hematologic/Lymphatic: Reports: no symptoms Allergies: Coded Allergies: No Known Allergies (Unverified , 06/10/17) Subjective in bed, no dvt found Objective Last 24 Hour Vital Signs Date Time Temp Pulse Resp B/P (MAP) Pulse Ox O2 Delivery O2 Flow Rate FiO2 06/12/17 16:00 97.7 53 18 124/69 95 Bi-pap 50 06/12/17 16:00 50 06/12/17 16:00 58 06/12/17 14:32 54 19 94 Facial 50 06/12/17 12:44 59 18 98 Facial 50 06/12/17 12:39 56 06/12/17 12:00 50 06/12/17 12:00 97.5 56 20 120/65 96 Bi-pap 50 06/12/17 11:25 50 18 98 Facial 50 06/12/17 09:15 60 18 99 Facial 50 06/12/17 08:03 57 06/12/17 08:00 97.0 63 20 118/74 97 Bi-pap 50 06/12/17 08:00 50 06/12/17 06:38 53 18 99 Facial 50 06/12/17 06:17 98.2 70 19 111/53 96 Bi-pap 50 06/12/17 05:26 71 17 94 Facial 50 06/12/17 04:00 98.2 70 19 111/53 96 Bi-pap 50 06/12/17 04:00 60 06/12/17 03:03 69 18 94 Facial 50 06/12/17 01:05 70 18 94 Facial 50 06/12/17 00:00 69 06/12/17 00:00 50 06/11/17 23:54 97.9 68 23 113/55 95 06/11/17 23:00 69 18 93 Facial 50 06/11/17 21:01 73 18 93 Facial 50 06/11/17 20:09 97.9 68 20 107/48 94 Bi-pap 50 06/11/17 20:00 50 06/11/17 19:23 63 06/11/17 19:23 62 18 95 Facial 50 Intake and Output 06/12/17 06/13/17 19:00 07:00 Intake Total 140 ml Balance 140 ml Intake IV Total 140 ml Laboratory Tests 06/12/17 03:50: White Blood Count 9.2, Red Blood Count 6.21H, Hemoglobin 17.9H, Hematocrit 59.5H , Mean Corpuscular Volume 96, Mean Corpuscular Hemoglobin 28.8, Mean Corpuscular Hemoglobin Concent 30.0L, Red Cell Distribution Width 19.6H, Platelet Count 147L, Mean Platelet Volume 7.3, Neutrophils (%) (Auto) 70.7, Lymphocytes (%) (Auto) 19.3L, Monocytes (%) (Auto) 9.3, Eosinophils (%) (Auto) 0.1, Basophils (%) (Auto) 0.6, Sodium Level 143, Potassium Level 3.7, Chloride Level 92L, Carbon Dioxide Level 46*H, Anion Gap 5, Blood Urea Nitrogen 25H, Creatinine 1.1H, Estimat Glomerular Filtration Rate 50.2, Glucose Level 79, Hemoglobin A1c 6.4H, Uric Acid 8.2H, Calcium Level 8.5L, Phosphorus Level 3.7, Magnesium Level 1.4L, Total Bilirubin 0.8, Gamma Glutamyl Transpeptidase 26, Aspartate Amino Transf (AST/SGOT) 22, Alanine Aminotransferase (ALT/SGPT) 24, Alkaline Phosphatase 48, Ammonia 75H, Total Creatine Kinase 46, C-Reactive Protein, Quantitative 0.6H, Pro-B-Type Natriuretic Peptide 1151H, Total Protein 5.7L, Albumin 3.2L, Globulin 2.5, Albumin/Globulin Ratio 1.2 06/12/17 07:20: Arterial Blood pH 7.340L, Arterial Blood Partial Pressure CO2 91.7*H, Arterial Blood Partial Pressure O2 95.6, Arterial Blood HCO3 49.0H, Arterial Blood Oxygen Saturation 96.5, Arterial Blood Base Excess 16.7, Perico Test Positive Height (Feet): 5 Height (Inches): 7.00 Weight (Pounds): 200 General Appearance: no apparent distress EENT: normal ENT inspection Neck: normal inspection Extremities: normal inspection Skin: warm/dry Steven Chang Jun 12, 2017 18:08
--- NOTE | 2017-06-12 20:30 | General Progress Note ---
Assessment/Plan Problem List: (1) COPD (chronic obstructive pulmonary disease) ICD Codes: J44.9 - Chronic obstructive pulmonary disease, unspecified SNOMED: 35209020 (2) Congestive heart failure ICD Codes: I50.9 - Heart failure, unspecified SNOMED: 28432537 (3) Hypoxemia ICD Codes: R09.02 - Hypoxemia SNOMED: 597283906 (4) Acute respiratory failure ICD Codes: J96.00 - Acute respiratory failure, unspecified whether with hypoxia or hypercapnia SNOMED: 25016235 Status: progressing Assessment/Plan afebrile vitals stable resp insuff no wheezing s/p bipap clinically improving Subjective ROS Limited/Unobtainable: Yes Allergies: Coded Allergies: No Known Allergies (Unverified , 06/10/17) Objective Last 24 Hour Vital Signs Date Time Temp Pulse Resp B/P (MAP) Pulse Ox O2 Delivery O2 Flow Rate FiO2 06/12/17 19:30 61 19 93 Facial 50 06/12/17 16:00 97.7 53 18 124/69 95 Bi-pap 50 06/12/17 16:00 50 06/12/17 16:00 58 06/12/17 14:32 54 19 94 Facial 50 06/12/17 12:44 59 18 98 Facial 50 06/12/17 12:39 56 06/12/17 12:00 50 06/12/17 12:00 97.5 56 20 120/65 96 Bi-pap 50 06/12/17 11:25 50 18 98 Facial 50 06/12/17 09:15 60 18 99 Facial 50 06/12/17 08:03 57 06/12/17 08:00 97.0 63 20 118/74 97 Bi-pap 50 06/12/17 08:00 50 06/12/17 06:38 53 18 99 Facial 50 06/12/17 06:17 98.2 70 19 111/53 96 Bi-pap 50 06/12/17 05:26 71 17 94 Facial 50 06/12/17 04:00 98.2 70 19 111/53 96 Bi-pap 50 06/12/17 04:00 60 06/12/17 03:03 69 18 94 Facial 50 06/12/17 01:05 70 18 94 Facial 50 06/12/17 00:00 69 06/12/17 00:00 50 06/11/17 23:54 97.9 68 23 113/55 95 06/11/17 23:00 69 18 93 Facial 50 06/11/17 21:01 73 18 93 Facial 50 Intake and Output 06/12/17 06/13/17 19:00 07:00 Intake Total 140 ml Output Total 4200 ml Balance -4060 ml Intake IV Total 140 ml Output Urine Total 4200 ml Laboratory Tests 06/12/17 03:50: White Blood Count 9.2, Red Blood Count 6.21H, Hemoglobin 17.9H, Hematocrit 59.5H , Mean Corpuscular Volume 96, Mean Corpuscular Hemoglobin 28.8, Mean Corpuscular Hemoglobin Concent 30.0L, Red Cell Distribution Width 19.6H, Platelet Count 147L, Mean Platelet Volume 7.3, Neutrophils (%) (Auto) 70.7, Lymphocytes (%) (Auto) 19.3L, Monocytes (%) (Auto) 9.3, Eosinophils (%) (Auto) 0.1, Basophils (%) (Auto) 0.6, Sodium Level 143, Potassium Level 3.7, Chloride Level 92L, Carbon Dioxide Level 46*H, Anion Gap 5, Blood Urea Nitrogen 25H, Creatinine 1.1H, Estimat Glomerular Filtration Rate 50.2, Glucose Level 79, Hemoglobin A1c 6.4H, Uric Acid 8.2H, Calcium Level 8.5L, Phosphorus Level 3.7, Magnesium Level 1.4L, Total Bilirubin 0.8, Gamma Glutamyl Transpeptidase 26, Aspartate Amino Transf (AST/SGOT) 22, Alanine Aminotransferase (ALT/SGPT) 24, Alkaline Phosphatase 48, Ammonia 75H, Total Creatine Kinase 46, C-Reactive Protein, Quantitative 0.6H, Pro-B-Type Natriuretic Peptide 1151H, Total Protein 5.7L, Albumin 3.2L, Globulin 2.5, Albumin/Globulin Ratio 1.2 06/12/17 07:20: Arterial Blood pH 7.340L, Arterial Blood Partial Pressure CO2 91.7*H, Arterial Blood Partial Pressure O2 95.6, Arterial Blood HCO3 49.0H, Arterial Blood Oxygen Saturation 96.5, Arterial Blood Base Excess 16.7, Perico Test Positive Height (Feet): 5 Height (Inches): 7.00 Weight (Pounds): 200 General Appearance: mild distress Respiratory/Chest: lungs clear Olu Calero MD Jun 12, 2017 20:30
[2017-06-12 20:36] VITALS: BP 134/75
[2017-06-12] MEDS: TraZODone 100mg tab ORAL SCH (21:00)
[2017-06-12] MEDS: Revatio 20mg tab ORAL SCH (21:05)
--- NOTE | 2017-06-12 23:54 | Cardiology Progress Note ---
Assessment/Plan Assessment/Plan 1. Cor pulmonale with moderate to severe pulmonary HTN, requires right heart cath to rule out NO reactivity. Start digoxin. Work up of pulmonary HTN required , including VQ scan to rule out chronic PE, rule out connective tissue disease, HIV disease, etc. 2. Hypoxemia, resolved, possible obesity hypoventilation syndrome, repeat CXR. Subjective Subjective Sinus rhythm at 68. On NC oxygen Objective Last 24 Hour Vital Signs Date Time Temp Pulse Resp B/P (MAP) Pulse Ox O2 Delivery O2 Flow Rate FiO2 06/12/17 21:00 4.0 06/12/17 20:36 98.0 74 24 134/75 90 Nasal Cannula 5.0 06/12/17 20:00 64 06/12/17 20:00 50 06/12/17 19:30 61 19 93 Facial 50 06/12/17 16:00 97.7 53 18 124/69 95 Bi-pap 50 06/12/17 16:00 50 06/12/17 16:00 58 06/12/17 14:32 54 19 94 Facial 50 06/12/17 12:44 59 18 98 Facial 50 06/12/17 12:39 56 06/12/17 12:00 50 06/12/17 12:00 97.5 56 20 120/65 96 Bi-pap 50 06/12/17 11:25 50 18 98 Facial 50 06/12/17 09:15 60 18 99 Facial 50 06/12/17 08:03 57 06/12/17 08:00 97.0 63 20 118/74 97 Bi-pap 50 06/12/17 08:00 50 06/12/17 06:38 53 18 99 Facial 50 06/12/17 06:17 98.2 70 19 111/53 96 Bi-pap 50 06/12/17 05:26 71 17 94 Facial 50 06/12/17 04:00 98.2 70 19 111/53 96 Bi-pap 50 06/12/17 04:00 60 06/12/17 03:03 69 18 94 Facial 50 06/12/17 01:05 70 18 94 Facial 50 06/12/17 00:00 69 06/12/17 00:00 50 06/11/17 23:54 97.9 68 23 113/55 95 Intake and Output 06/12/17 06/13/17 19:00 07:00 Intake Total 140 ml Output Total 4200 ml Balance -4060 ml Intake IV Total 140 ml Output Urine Total 4200 ml 2D Echo: LVEF 65% RA/RV dilatation, RVSO 58 mmHg, Grade I lVDD Laboratory Tests Test 06/12/17 03:50 06/12/17 07:20 White Blood Count 9.2 K/UL (4.8-10.8) Red Blood Count 6.21 M/UL (4.20-5.40) H Hemoglobin 17.9 G/DL (12.0-16.0) H Hematocrit 59.5 % (37.0-47.0) H Mean Corpuscular Volume 96 FL (80-99) Mean Corpuscular Hemoglobin 28.8 PG (27.0-31.0) Mean Corpuscular Hemoglobin Concent 30.0 G/DL (32.0-36.0) L Red Cell Distribution Width 19.6 % (11.6-14.8) H Platelet Count 147 K/UL (150-450) L Mean Platelet Volume 7.3 FL (6.5-10.1) Neutrophils (%) (Auto) 70.7 % (45.0-75.0) Lymphocytes (%) (Auto) 19.3 % (20.0-45.0) L Monocytes (%) (Auto) 9.3 % (1.0-10.0) Eosinophils (%) (Auto) 0.1 % (0.0-3.0) Basophils (%) (Auto) 0.6 % (0.0-2.0) Sodium Level 143 mEQ/L (135-145) Potassium Level 3.7 mEQ/L (3.4-4.9) Chloride Level 92 mEQ/L (98-107) L Carbon Dioxide Level 46 mEQ/L (20-30) *H Anion Gap 5 (5-15) Blood Urea Nitrogen 25 mg/dL (7-23) H Creatinine 1.1 mg/dL (0.5-0.9) H Estimat Glomerular Filtration Rate 50.2 mL/min (>60) Glucose Level 79 mg/dL (74-106) Hemoglobin A1c 6.4 % (< 6.0) H Uric Acid 8.2 mg/dL (3.0-7.5) H Calcium Level 8.5 mg/dL (8.6-10.2) L Phosphorus Level 3.7 mg/dL (2.5-4.8) Magnesium Level 1.4 mg/dL (1.7-2.5) L Total Bilirubin 0.8 mg/dL (0.0-1.2) Gamma Glutamyl Transpeptidase 26 U/L (5-36) Aspartate Amino Transf (AST/SGOT) 22 U/L (5-40) Alanine Aminotransferase (ALT/SGPT) 24 U/L (3-33) Alkaline Phosphatase 48 U/L (35-104) Ammonia 75 umol/L (11-51) H Total Creatine Kinase 46 U/L (26-140) C-Reactive Protein, Quantitative 0.6 mg/dL (< 0.5) H Pro-B-Type Natriuretic Peptide 1151 pg/mL (0-125) H Total Protein 5.7 g/dL (6.6-8.7) L Albumin 3.2 g/dL (3.5-5.2) L Globulin 2.5 g/dL Albumin/Globulin Ratio 1.2 (1.0-2.7) Arterial Blood pH 7.340 (7.350-7.450) Arterial Blood Partial Pressure CO2 91.7 mmHg (35.0-45.0) *H Arterial Blood Partial Pressure O2 95.6 mmHg (75.0-100.0) Arterial Blood HCO3 49.0 mmol/L (22.0-26.0) H Arterial Blood Oxygen Saturation 96.5 % (92.0-98.0) Arterial Blood Base Excess 16.7 Perico Test Positive Microbiology Date/Time Source Procedure Growth Status 06/10/17 09:10 Blood Blood Culture - Preliminary NO GROWTH AFTER 24 HOURS Resulted 06/10/17 09:00 Blood Blood Culture - Preliminary Staphylococcus Sp Coag Neg Resulted 06/10/17 17:00 Sputum Gram Stain - Final Complete 06/10/17 17:00 Sputum Sputum Culture - Final NORMAL UPPER RESPIRATORY JESS PRESENT Complete 06/10/17 10:50 Urine,Clean Catch Urine Culture - Final Klebsiella Pneumoniae Complete Objective HEENT: Normocephalic and atraumatic. Pupils reactive to light. Pale sclera. Unable to assess oral mucosa due to BiPAP mask. NECK: Cannot assess JVD. CARDIOVASCULAR: Regular rate and rhythm. No murmurs, gallops or rubs LUNGS: She had crackles. Diminished breathing sounds at the bases. Normal breathing effort. ABDOMEN: Soft, obese, nontender, and nondistended. Positive bowel sounds. No hepatosplenomegaly. No ascites. EXTREMITIES: No edema, clubbing or cyanosis. VIVIANE EDUARDO Jun 12, 2017 23:54
[2017-06-13 00:53] VITALS: BP 127/72
[2017-06-13] MEDS: Piperacillin/Tazobactam 3.375 GM in D5W 110 ML IVPB SCH ×3 (02:21→18:00)
[2017-06-13 04:00] VITALS: BP_SYST 102; BP_SYST 122; BP_DIAS 58
[2017-06-13] MEDS: Vancomycin 750mg/NS 250ml IVPB SCH ×2 (04:42→16:13)
[2017-06-13 05:35] LABS: BASOPHILS % (AUTO) 0.6 % (0.0-2.0); EOSINOPHILS % (AUTO) 0.4 % (0.0-3.0); LYMPHOCYTES % (AUTO) 15.8 % (20.0-45.0); MEAN CORPUSCULAR HGB CONC 30.3 G/DL (32.0-36.0); MEAN CORPUSCULAR VOLUME 96 FL (80-99); MEAN PLATELET VOLUME 6.9 FL (6.5-10.1); MONOCYTES % (AUTO) 10.5 % (1.0-10.0); NEUTROPHILS % (AUTO) 72.8 % (45.0-75.0); PLATELET COUNT 127 K/UL (150-450); RED BLOOD COUNT 6.43 M/UL (4.20-5.40); RED CELL DISTRIBUTION WIDTH 19.8 % (11.6-14.8); WHITE BLOOD COUNT 8.7 K/UL (4.8-10.8)
[2017-06-13 06:29] LABS: ALBUMIN/GLOBULIN RATIO 1.1 (1.0-2.7); POTASSIUM 3.5 mEQ/L (3.4-4.9); TOTAL PROTEIN 6.6 g/dL (6.6-8.7)
[2017-06-13 07:15] LABS: BILIRUBIN,DIRECT 0.4 mg/dL (0.1-0.3)
[2017-06-13 08:00] VITALS: BP 103/47
[2017-06-13] MEDS: LaMICtal 150mg tab ORAL SCH (08:44)
[2017-06-13] MEDS: Revatio 20mg tab ORAL SCH ×3 (08:44→17:22)
--- NOTE | 2017-06-13 10:43 | General Progress Note ---
Assessment/Plan Status: unchanged Status Narrative retains CO2 Assessment/Plan - Cr 1.4 now down to 1.0 - COPD - HCAP (healthcare-associated pneumonia) - Urinary tract infection - Sepsis - Congestive heart failure Monitor lytes and renal parameters avoid nephrotoxics optimize pulm and cardiac status Subjective ROS Limited/Unobtainable: No Constitutional: Reports: malaise, weakness Allergies: Coded Allergies: No Known Allergies (Unverified , 06/10/17) Objective Last 24 Hour Vital Signs Date Time Temp Pulse Resp B/P (MAP) Pulse Ox O2 Delivery O2 Flow Rate FiO2 06/13/17 04:18 73 06/13/17 04:00 97.5 66 22 102/58 100 Nasal Cannula 3.0 06/13/17 04:00 4.0 06/13/17 04:00 97.5 66 28 122/58 89 Nasal Cannula 4.0 06/13/17 00:53 98.3 74 28 127/72 89 Nasal Cannula 3.0 06/13/17 00:00 75 06/12/17 23:47 80 20 Nasal Cannula 4.0 36 06/12/17 21:00 4.0 06/12/17 20:36 98.0 74 24 134/75 90 Nasal Cannula 5.0 06/12/17 20:00 64 06/12/17 20:00 50 06/12/17 19:30 61 19 93 Facial 50 06/12/17 16:00 97.7 53 18 124/69 95 Bi-pap 50 06/12/17 16:00 50 06/12/17 16:00 58 06/12/17 14:32 54 19 94 Facial 50 06/12/17 12:44 59 18 98 Facial 50 06/12/17 12:39 56 06/12/17 12:00 50 06/12/17 12:00 97.5 56 20 120/65 96 Bi-pap 50 06/12/17 11:25 50 18 98 Facial 50 Intake and Output 06/13/17 06/14/17 19:00 07:00 Intake Total 30 ml Balance 30 ml IV Total 30 ml Laboratory Tests 06/13/17 04:05: White Blood Count 8.7, Red Blood Count 6.43H, Hemoglobin 18.7*H, Hematocrit 61.6H, Mean Corpuscular Volume 96, Mean Corpuscular Hemoglobin 29.0, Mean Corpuscular Hemoglobin Concent 30.3L, Red Cell Distribution Width 19.8H, Platelet Count 127L, Mean Platelet Volume 6.9, Neutrophils (%) (Auto) 72.8, Lymphocytes (%) (Auto) 15.8L, Monocytes (%) (Auto) 10.5H, Eosinophils (%) (Auto ) 0.4, Basophils (%) (Auto) 0.6, Sodium Level 142, Potassium Level 3.5, Chloride Level 83L, Carbon Dioxide Level 49*H, Anion Gap 10, Blood Urea Nitrogen 20, Creatinine 1.0H, Estimat Glomerular Filtration Rate 56.0, Glucose Level 92, Calcium Level 9.0, Total Bilirubin 1.6H, Direct Bilirubin 0.4H, Aspartate Amino Transf (AST/SGOT) 27, Alanine Aminotransferase (ALT/SGPT) 25, Alkaline Phosphatase 62, Pro-B-Type Natriuretic Peptide 1348H, Total Protein 6.6 , Albumin 3.5, Globulin 3.1, Albumin/Globulin Ratio 1.1 Height (Feet): 5 Height (Inches): 7.00 Weight (Pounds): 200 General Appearance: no apparent distress Cardiovascular: normal rate Respiratory/Chest: decreased breath sounds Abdomen: distended Objective no change in PE JENNIFER OVALLE Jun 13, 2017 10:43
--- NOTE | 2017-06-13 11:23 | Pulmonology Progress Note ---
Assessment/Plan Problems: (1) Acute respiratory failure (2) COPD (chronic obstructive pulmonary disease) (3) Congestive heart failure (4) Sepsis Assessment/Plan pt diuresed 15 liters sofar ( not sure if the number is accurate) Hem is rising as a sign of hemoconcentration BNP decreasing check electrolytes cxr bnp in am Subjective ROS Limited/Unobtainable: No Constitutional: Reports: no symptoms Respiratory: Reports: no symptoms Allergies: Coded Allergies: No Known Allergies (Unverified , 06/10/17) Objective Last 24 Hour Vital Signs Date Time Temp Pulse Resp B/P (MAP) Pulse Ox O2 Delivery O2 Flow Rate FiO2 06/13/17 08:00 65 06/13/17 08:00 97.9 66 18 103/47 90 Nasal Cannula 3.0 06/13/17 08:00 15.0 55 06/13/17 04:18 73 06/13/17 04:00 97.5 66 22 102/58 100 Nasal Cannula 3.0 06/13/17 04:00 4.0 06/13/17 04:00 97.5 66 28 122/58 89 Nasal Cannula 4.0 06/13/17 00:53 98.3 74 28 127/72 89 Nasal Cannula 3.0 06/13/17 00:00 75 06/12/17 23:47 80 20 Nasal Cannula 4.0 36 06/12/17 21:00 4.0 06/12/17 20:36 98.0 74 24 134/75 90 Nasal Cannula 5.0 06/12/17 20:00 64 06/12/17 20:00 50 06/12/17 19:30 61 19 93 Facial 50 06/12/17 16:00 97.7 53 18 124/69 95 Bi-pap 50 06/12/17 16:00 50 06/12/17 16:00 58 06/12/17 14:32 54 19 94 Facial 50 06/12/17 12:44 59 18 98 Facial 50 06/12/17 12:39 56 06/12/17 12:00 50 06/12/17 12:00 97.5 56 20 120/65 96 Bi-pap 50 06/12/17 11:25 50 18 98 Facial 50 Intake and Output 06/13/17 06/14/17 19:00 07:00 Intake Total 67.5 ml Balance 67.5 ml IV Total 67.5 ml Objective off bipap, tolerating well General Appearance: WD/WN HEENT: normocephalic, atraumatic Respiratory/Chest: chest wall non-tender, lungs clear Cardiovascular: normal peripheral pulses, normal rate Abdomen: normal bowel sounds, soft, non tender Extremities: no cyanosis, no clubbing Microbiology Date/Time Source Procedure Growth Status 06/10/17 17:00 Sputum Gram Stain - Final Complete 06/10/17 17:00 Sputum Sputum Culture - Final NORMAL UPPER RESPIRATORY JESS PRESENT Complete Laboratory Tests 06/13/17 04:05: White Blood Count 8.7, Red Blood Count 6.43H, Hemoglobin 18.7*H, Hematocrit 61.6H, Mean Corpuscular Volume 96, Mean Corpuscular Hemoglobin 29.0, Mean Corpuscular Hemoglobin Concent 30.3L, Red Cell Distribution Width 19.8H, Platelet Count 127L, Mean Platelet Volume 6.9, Neutrophils (%) (Auto) 72.8, Lymphocytes (%) (Auto) 15.8L, Monocytes (%) (Auto) 10.5H, Eosinophils (%) (Auto ) 0.4, Basophils (%) (Auto) 0.6, Sodium Level 142, Potassium Level 3.5, Chloride Level 83L, Carbon Dioxide Level 49*H, Anion Gap 10, Blood Urea Nitrogen 20, Creatinine 1.0H, Estimat Glomerular Filtration Rate 56.0, Glucose Level 92, Calcium Level 9.0, Total Bilirubin 1.6H, Direct Bilirubin 0.4H, Aspartate Amino Transf (AST/SGOT) 27, Alanine Aminotransferase (ALT/SGPT) 25, Alkaline Phosphatase 62, Pro-B-Type Natriuretic Peptide 1348H, Total Protein 6.6 , Albumin 3.5, Globulin 3.1, Albumin/Globulin Ratio 1.1 Current Medications Medications (Trade) Dose Ordered Sig/Lloyd Route PRN Reason Start Time Stop Time Status Last Admin Dose Admin Clotrimazole (Lotrimin) 1 applic EVERY 12 HOURS TOPIC 06/11/17 13:00 07/11/17 12:59 06/13/17 08:44 Furosemide 100 mg/ Dextrose 100 ml @ 10 mls/hr Q10H IV 06/10/17 15:00 07/10/17 14:59 06/13/17 03:01 Lamotrigine (LaMICtal) 150 mg DAILY ORAL 06/11/17 09:00 07/11/17 08:59 06/13/17 08:44 Piperacillin Sod/ Tazobactam Sod 3.375 gm/Dextrose 110 ml @ 27.5 mls/hr Q8HR@0200,1000,1800 IVPB 06/10/17 18:00 06/17/17 17:59 06/13/17 09:28 Promethazine HCl/ Codeine (Phenergan with Codeine) 5 ml Q4H PRN ORAL For Cough 06/10/17 14:00 07/10/17 13:59 Sildenafil Citrate (Revatio) 20 mg THREE TIMES A DAY ORAL 06/12/17 21:30 07/12/17 21:29 06/13/17 08:44 Trazodone HCl (Desyrel) 150 mg BEDTIME ORAL 06/10/17 21:00 07/10/17 20:59 06/12/17 21:00 Vancomycin HCl (Vanco rx to dose) 1 ea DAILY PRN MISC Per rx protocol 06/10/17 14:00 07/10/17 13:59 Vancomycin/Sodium Chloride 250 ml @ 166.667 mls/hr Q12HR@0400,1600 IVPB 06/12/17 16:00 06/17/17 15:59 06/13/17 04:42 MARIPOSA BLACKBURN Jun 13, 2017 11:23
--- NOTE | 2017-06-13 11:55 | Diagnostic Imaging Report ---
Indication: Dyspnea Comparison: 06/12/17 A single view chest radiograph was obtained. Findings: Initiated. There is marginal improvement since the last exam. The heart is enlarged. Impression: Mild to moderate interstitial edema with slight improvement
[2017-06-13 12:00] VITALS: BP 111/62
--- NOTE | 2017-06-13 14:03 | General Progress Note ---
Assessment/Plan Status: doing well, stable, progressing Assessment/Plan stable -Lamictal -trazodone Subjective Constitutional: Reports: malaise, weakness Neurologic/Psychiatric: Reports: depressed, emotional problems Allergies: Coded Allergies: No Known Allergies (Unverified , 06/10/17) Subjective The pt is stable on current meds. Objective Last 24 Hour Vital Signs Date Time Temp Pulse Resp B/P (MAP) Pulse Ox O2 Delivery O2 Flow Rate FiO2 06/13/17 12:00 15.0 55 06/13/17 08:00 65 06/13/17 08:00 97.9 66 18 103/47 90 Nasal Cannula 3.0 06/13/17 08:00 15.0 55 06/13/17 04:18 73 06/13/17 04:00 97.5 66 22 102/58 100 Nasal Cannula 3.0 06/13/17 04:00 4.0 06/13/17 04:00 97.5 66 28 122/58 89 Nasal Cannula 4.0 06/13/17 00:53 98.3 74 28 127/72 89 Nasal Cannula 3.0 06/13/17 00:00 75 06/12/17 23:47 80 20 Nasal Cannula 4.0 36 06/12/17 21:00 4.0 06/12/17 20:36 98.0 74 24 134/75 90 Nasal Cannula 5.0 06/12/17 20:00 64 06/12/17 20:00 50 06/12/17 19:30 61 19 93 Facial 50 06/12/17 16:00 97.7 53 18 124/69 95 Bi-pap 50 06/12/17 16:00 50 06/12/17 16:00 58 06/12/17 14:32 54 19 94 Facial 50 Intake and Output 06/13/17 06/14/17 19:00 07:00 Intake Total 170.0 ml Balance 170.0 ml IV Total 170.0 ml Laboratory Tests 06/13/17 04:05: White Blood Count 8.7, Red Blood Count 6.43H, Hemoglobin 18.7*H, Hematocrit 61.6H, Mean Corpuscular Volume 96, Mean Corpuscular Hemoglobin 29.0, Mean Corpuscular Hemoglobin Concent 30.3L, Red Cell Distribution Width 19.8H, Platelet Count 127L, Mean Platelet Volume 6.9, Neutrophils (%) (Auto) 72.8, Lymphocytes (%) (Auto) 15.8L, Monocytes (%) (Auto) 10.5H, Eosinophils (%) (Auto ) 0.4, Basophils (%) (Auto) 0.6, Sodium Level 142, Potassium Level 3.5, Chloride Level 83L, Carbon Dioxide Level 49*H, Anion Gap 10, Blood Urea Nitrogen 20, Creatinine 1.0H, Estimat Glomerular Filtration Rate 56.0, Glucose Level 92, Calcium Level 9.0, Total Bilirubin 1.6H, Direct Bilirubin 0.4H, Aspartate Amino Transf (AST/SGOT) 27, Alanine Aminotransferase (ALT/SGPT) 25, Alkaline Phosphatase 62, Pro-B-Type Natriuretic Peptide 1348H, Total Protein 6.6 , Albumin 3.5, Globulin 3.1, Albumin/Globulin Ratio 1.1 Height (Feet): 5 Height (Inches): 7.00 Weight (Pounds): 200 General Appearance: no apparent distress, alert Neurologic: alert, oriented x 3, responsive, depressed affect Don Parekh M.D. Jun 13, 2017 14:03
[2017-06-13 16:00] VITALS: BP 116/66
--- NOTE | 2017-06-13 16:38 | General Progress Note ---
Assessment/Plan Problem List: (1) COPD (chronic obstructive pulmonary disease) ICD Codes: J44.9 - Chronic obstructive pulmonary disease, unspecified SNOMED: 89086888 (2) Congestive heart failure ICD Codes: I50.9 - Heart failure, unspecified SNOMED: 72505734 (3) Hypoxemia ICD Codes: R09.02 - Hypoxemia SNOMED: 948601417 (4) Acute respiratory failure ICD Codes: J96.00 - Acute respiratory failure, unspecified whether with hypoxia or hypercapnia SNOMED: 05518551 Status: progressing Assessment/Plan reviewed chart and labs afebrile resp insuff s/p bipap clinically improving Subjective Respiratory: Reports: shortness of breath Allergies: Coded Allergies: No Known Allergies (Unverified , 06/10/17) Objective Last 24 Hour Vital Signs Date Time Temp Pulse Resp B/P (MAP) Pulse Ox O2 Delivery O2 Flow Rate FiO2 06/13/17 16:34 77 06/13/17 16:00 15.0 55 06/13/17 12:00 15.0 55 06/13/17 12:00 66 06/13/17 12:00 98.2 63 18 111/62 90 Venturi Mask 55 06/13/17 08:00 65 06/13/17 08:00 97.9 66 18 103/47 90 Nasal Cannula 3.0 06/13/17 08:00 15.0 55 06/13/17 04:18 73 06/13/17 04:00 97.5 66 22 102/58 100 Nasal Cannula 3.0 06/13/17 04:00 4.0 06/13/17 04:00 97.5 66 28 122/58 89 Nasal Cannula 4.0 06/13/17 00:53 98.3 74 28 127/72 89 Nasal Cannula 3.0 06/13/17 00:00 75 06/12/17 23:47 80 20 Nasal Cannula 4.0 36 06/12/17 21:00 4.0 06/12/17 20:36 98.0 74 24 134/75 90 Nasal Cannula 5.0 06/12/17 20:00 64 06/12/17 20:00 50 06/12/17 19:30 61 19 93 Facial 50 Intake and Output 06/13/17 06/14/17 19:00 07:00 Intake Total 190.0 ml Balance 190.0 ml IV Total 190.0 ml Laboratory Tests 06/13/17 04:05: White Blood Count 8.7, Red Blood Count 6.43H, Hemoglobin 18.7*H, Hematocrit 61.6H, Mean Corpuscular Volume 96, Mean Corpuscular Hemoglobin 29.0, Mean Corpuscular Hemoglobin Concent 30.3L, Red Cell Distribution Width 19.8H, Platelet Count 127L, Mean Platelet Volume 6.9, Neutrophils (%) (Auto) 72.8, Lymphocytes (%) (Auto) 15.8L, Monocytes (%) (Auto) 10.5H, Eosinophils (%) (Auto ) 0.4, Basophils (%) (Auto) 0.6, Sodium Level 142, Potassium Level 3.5, Chloride Level 83L, Carbon Dioxide Level 49*H, Anion Gap 10, Blood Urea Nitrogen 20, Creatinine 1.0H, Estimat Glomerular Filtration Rate 56.0, Glucose Level 92, Calcium Level 9.0, Total Bilirubin 1.6H, Direct Bilirubin 0.4H, Aspartate Amino Transf (AST/SGOT) 27, Alanine Aminotransferase (ALT/SGPT) 25, Alkaline Phosphatase 62, Pro-B-Type Natriuretic Peptide 1348H, Total Protein 6.6 , Albumin 3.5, Globulin 3.1, Albumin/Globulin Ratio 1.1 06/13/17 15:05: Vancomycin Level Trough 14.4H Height (Feet): 5 Height (Inches): 7.00 Weight (Pounds): 200 Neck: supple Cardiovascular: normal rate Respiratory/Chest: lungs clear Abdomen: soft Olu Calero MD Jun 13, 2017 16:38
--- NOTE | 2017-06-13 17:10 | General Progress Note ---
Assessment/Plan Assessment/Plan Assessment and Plan 1. Polycythemia, likely with history of underlying chronic obstructive pulmonary disease. At this time, we will hold off on DEION 2 level. We will need to have polycythemia addressed as outpatient. --> continue to monitor counts 2. Elevated prothrombin time and normal PTT. --> vitamin k given 3. Thrombocytopenia, potentially secondary to underlying healthcare-associated pneumonia. She is on antibiotics. 4. Urinary tract infection. She is on antibiotics, ID following. 5. Congestive heart failure, needs diuresis. --> cardiology following 6. Chronic obstructive pulmonary disease history and difficulty with breathing. Subjective Constitutional: Reports: no symptoms HEENT: Reports: no symptoms Cardiovascular: Reports: no symptoms Respiratory: Reports: no symptoms Gastrointestinal/Abdominal: Reports: no symptoms Genitourinary: Reports: no symptoms Neurologic/Psychiatric: Reports: no symptoms Endocrine: Reports: no symptoms Allergies: Coded Allergies: No Known Allergies (Unverified , 06/10/17) Objective Last 24 Hour Vital Signs Date Time Temp Pulse Resp B/P (MAP) Pulse Ox O2 Delivery O2 Flow Rate FiO2 06/13/17 16:34 77 06/13/17 16:00 15.0 55 06/13/17 12:00 15.0 55 06/13/17 12:00 66 06/13/17 12:00 98.2 63 18 111/62 90 Venturi Mask 55 06/13/17 08:00 65 06/13/17 08:00 97.9 66 18 103/47 90 Nasal Cannula 3.0 06/13/17 08:00 15.0 55 06/13/17 04:18 73 06/13/17 04:00 97.5 66 22 102/58 100 Nasal Cannula 3.0 06/13/17 04:00 4.0 06/13/17 04:00 97.5 66 28 122/58 89 Nasal Cannula 4.0 06/13/17 00:53 98.3 74 28 127/72 89 Nasal Cannula 3.0 06/13/17 00:00 75 06/12/17 23:47 80 20 Nasal Cannula 4.0 36 06/12/17 21:00 4.0 06/12/17 20:36 98.0 74 24 134/75 90 Nasal Cannula 5.0 06/12/17 20:00 64 06/12/17 20:00 50 06/12/17 19:30 61 19 93 Facial 50 Intake and Output 06/13/17 06/14/17 19:00 07:00 Intake Total 200.0 ml Balance 200.0 ml IV Total 200.0 ml Laboratory Tests 06/13/17 04:05: White Blood Count 8.7, Red Blood Count 6.43H, Hemoglobin 18.7*H, Hematocrit 61.6H, Mean Corpuscular Volume 96, Mean Corpuscular Hemoglobin 29.0, Mean Corpuscular Hemoglobin Concent 30.3L, Red Cell Distribution Width 19.8H, Platelet Count 127L, Mean Platelet Volume 6.9, Neutrophils (%) (Auto) 72.8, Lymphocytes (%) (Auto) 15.8L, Monocytes (%) (Auto) 10.5H, Eosinophils (%) (Auto ) 0.4, Basophils (%) (Auto) 0.6, Sodium Level 142, Potassium Level 3.5, Chloride Level 83L, Carbon Dioxide Level 49*H, Anion Gap 10, Blood Urea Nitrogen 20, Creatinine 1.0H, Estimat Glomerular Filtration Rate 56.0, Glucose Level 92, Calcium Level 9.0, Total Bilirubin 1.6H, Direct Bilirubin 0.4H, Aspartate Amino Transf (AST/SGOT) 27, Alanine Aminotransferase (ALT/SGPT) 25, Alkaline Phosphatase 62, Pro-B-Type Natriuretic Peptide 1348H, Total Protein 6.6 , Albumin 3.5, Globulin 3.1, Albumin/Globulin Ratio 1.1 06/13/17 15:05: Vancomycin Level Trough 14.4H Height (Feet): 5 Height (Inches): 7.00 Weight (Pounds): 200 General Appearance: no apparent distress EENT: normal ENT inspection Neck: normal alignment Cardiovascular: normal peripheral pulses Respiratory/Chest: normal breath sounds Abdomen: no mass 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
--- NOTE | 2017-06-13 17:30 | Consultation ---
DATE OF CONSULTATION: 06/10/2017 CARDIOLOGY CONSULTATION CONSULTING PHYSICIAN: Bishnu Loo M.D. REFERRING PHYSICIAN: Olu Calero M.D. REASON FOR CONSULTATION: Management of shortness of breath. HISTORY OF PRESENT ILLNESS: The patient is a very unfortunate 61-year-old female, who presents to the hospital with difficulty breathing. The patient apparently had history of fall with increased low back pain. The patient is a poor historian and is currently on BiPAP mask. Cannot obtain detailed history of her shortness of breath. Apparently, the patient had low oxygen saturation and was started on supplemental oxygen by EMS. Upon arrival to the emergency department of this facility, blood pressure was 98/56, O2 saturation was 86% on nonrebreather mask, and pulse was 95. The patient was admitted to [facility] for evaluation and assessment and Cardiology consultation was made at request of Dr. Calero for evaluation of dyspnea from Cardiology standpoint. Upon arrival to the hospital, the patient had a 12-lead electrocardiogram, showed sinus rhythm with no ST and T-wave abnormalities. PAST MEDICAL HISTORY: Includes history of hypertension, history of diabetes mellitus, history of schizophrenia, history of cerebrovascular accident, and history of cardiac disease. PAST SURGICAL HISTORY: None. ALLERGIES: No known drug allergies. MEDICATIONS: List of medication include Saphris 10 mg XL twice daily, atorvastatin 20 mg p.o. daily, benazepril 20 mg p.o. daily, gabapentin 100 mg daily, isosorbide mononitrate 20 mg p.o. daily, Lamictal 150 mg at bedtime, magnesium oxide 400 mg daily, montelukast 10 mg p.o. twice daily, trazodone 300 mg at bedtime, and Spiriva 2.5 mg inhaler daily. SOCIAL HISTORY: There is no current history of tobacco, alcohol, or illicit drug use. REVIEW OF SYSTEMS: A 12-system review done essentially negative except what mentioned in the history of present illness. PHYSICAL EXAMINATION: VITAL SIGNS: Blood pressure at the time of arrival to the hospital was 98/56, respirations of 15, pulse of 95, O2 saturation of 96% on a non-rebreather mask, oxygen per minute, and temperature 97.0 degrees Fahrenheit. GENERAL: The patient is a very unfortunate 61-year-old lady, on BiPAP mask, not communicating with me at this time. HEENT: Atraumatic and normocephalic. Anicteric. Pupils are equal, round, and reactive to light and accommodation. Extraocular muscles intact. NECK: Cannot assess JVP due to the fact that the patient is on positive inspiratory pressure of BiPAP mask. No carotid bruit. Carotid upstrokes 2+ bilaterally. CARDIOVASCULAR: Normal S1, S2. Regular rate and rhythm. No murmurs, gallops, or rubs. PMI is at fourth intercostal space at the midclavicular line. LUNGS: Clear to auscultation bilaterally. ABDOMEN: Soft, nontender, and nondistended. No hepatosplenomegaly. Positive bowel sounds. EXTREMITIES: No evidence of edema, clubbing, or cyanosis. LABORATORY AND DIAGNOSTIC DATA: Chest x-ray done on 06/10/2017 shows cardiomegaly with pulmonary edema. A 2D echocardiography shows normal left ventricular systolic function with LVEF of about 60% to 65%. There is severe right atrial and ventricular cavity enlargement with D shaped myocardial wall in the short axis, suggestive of right ventricular pressure and volume overload. There is severely decreased right ventricular systolic function. There was moderate tricuspid regurgitation with right ventricular systolic pressure measured at 55 mmHg consistent with moderate to severe pulmonary hypertension. There was grade 1 LV diastolic dysfunction and left ventricular relaxation. A 12-lead electrocardiogram shows sinus rhythm at a rate of 90 with right axis deviation. There is right atrial enlargement. There is septal infarct, age indeterminate. There is a prolonged QT interval. ASSESSMENT AND PLAN: The patient is a very unfortunate 61-year-old female, seen in Cardiology consultation at request of Dr. Calero. 1. Dyspnea to me is due to cor pulmonale. This patient has severe pulmonary hypertension, moderate pulmonary hypertension. The cause of the right atrial and right ventricular dilatation and pulmonary hypertension needs to be identified. I would like to order a ventilation/perfusion scan to rule out chronic pulmonary embolism. The patient also requires to have connective tissue disease to be ruled out as the possible diagnosis, required to identify her grouping according to the pulmonary hypertension. The patient may benefit from right heart catheterization as well. 2. Normal left ventricular systolic function with left ventricular ejection fraction of about 60% to 65%. This patient has no echocardiography criteria of pulmonary venous hypertension. 3. History of hypertension. 4. History of diabetes mellitus. 5. History of schizophrenia. I would like to thank, Dr. Calero, for allowing me to participate in the care of this patient. Bishnu Loo M.D. DR: KENROY JOB#: [id number] CC:
--- NOTE | 2017-06-13 18:43 | Infectious Diseases Prog Note ---
Assessment/Plan Problems: (1) HCAP (healthcare-associated pneumonia) Assessment & Plan: with slight improvement on repeated CXR, on vancomycin and zosyn empirically, will switch zosyn to ceftriaxon , to cover for UTI too, await sputum culture (2) Urinary tract infection Assessment & Plan: due to Klebsiella pneumonia, already on zosyn , will switch to ceftriaxon (3) Sepsis Assessment & Plan: due to the above, will start wide spectrum antibiotics, blood culture grew coag negative staph from one bottle , most likely contaminant (4) Congestive heart failure Assessment & Plan: needs diuresis , consult cardiology Subjective Constitutional: Reports: no symptoms HEENT: Reports: no symptoms Respiratory: Reports: shortness of breath, dry cough Breasts: Reports: no symptoms Cardiovascular: Reports: no symptoms Gastrointestinal/Abdominal: Reports: no symptoms Genitourinary: Reports: no symptoms Neurologic: Reports: no symptoms Psychiatric: Reports: no symptoms Skin: Reports: no symptoms Endocrine: Reports: no symptoms Allergies: Coded Allergies: No Known Allergies (Unverified , 06/10/17) Subjective she is still on BIPAP, awake and comfortable, respond to verbal commands, afebrile Objective Vital Signs Last 24 Hour Vital Signs Date Time Temp Pulse Resp B/P (MAP) Pulse Ox O2 Delivery O2 Flow Rate FiO2 06/13/17 16:34 77 06/13/17 16:00 98.2 76 20 116/66 90 Nasal Cannula 4.0 06/13/17 16:00 15.0 55 06/13/17 12:00 15.0 55 06/13/17 12:00 66 06/13/17 12:00 98.2 63 18 111/62 90 Venturi Mask 55 06/13/17 08:00 65 06/13/17 08:00 97.9 66 18 103/47 90 Nasal Cannula 3.0 06/13/17 08:00 15.0 55 06/13/17 04:18 73 06/13/17 04:00 97.5 66 22 102/58 100 Nasal Cannula 3.0 06/13/17 04:00 4.0 06/13/17 04:00 97.5 66 28 122/58 89 Nasal Cannula 4.0 06/13/17 00:53 98.3 74 28 127/72 89 Nasal Cannula 3.0 06/13/17 00:00 75 06/12/17 23:47 80 20 Nasal Cannula 4.0 36 06/12/17 21:00 4.0 06/12/17 20:36 98.0 74 24 134/75 90 Nasal Cannula 5.0 06/12/17 20:00 64 06/12/17 20:00 50 06/12/17 19:30 61 19 93 Facial 50 Height (Feet): 5 Height (Inches): 7.00 Weight (Pounds): 200 General Appearance: WD/WN, no acute distress HEENT: normocephalic, atraumatic, anicteric, mucous membranes moist, PERRL Respiratory/Chest: chest wall non-tender, normal breath sounds, no respiratory distress, no accessory muscle use, decreased breath sounds, crackles/rales Cardiovascular: normal peripheral pulses, normal rate, regular rhythm, no gallop/murmur, no JVD Abdomen: normal bowel sounds, soft, non tender, no organomegaly, non distended , no mass, no scars Extremities: no cyanosis, no clubbing Skin: no rash, no lesions Laboratory Tests Test 06/13/17 04:05 06/13/17 15:05 White Blood Count 8.7 K/UL (4.8-10.8) Red Blood Count 6.43 M/UL (4.20-5.40) H Hemoglobin 18.7 G/DL (12.0-16.0) *H Hematocrit 61.6 % (37.0-47.0) H Mean Corpuscular Volume 96 FL (80-99) Mean Corpuscular Hemoglobin 29.0 PG (27.0-31.0) Mean Corpuscular Hemoglobin Concent 30.3 G/DL (32.0-36.0) L Red Cell Distribution Width 19.8 % (11.6-14.8) H Platelet Count 127 K/UL (150-450) L Mean Platelet Volume 6.9 FL (6.5-10.1) Neutrophils (%) (Auto) 72.8 % (45.0-75.0) Lymphocytes (%) (Auto) 15.8 % (20.0-45.0) L Monocytes (%) (Auto) 10.5 % (1.0-10.0) H Eosinophils (%) (Auto) 0.4 % (0.0-3.0) Basophils (%) (Auto) 0.6 % (0.0-2.0) Sodium Level 142 mEQ/L (135-145) Potassium Level 3.5 mEQ/L (3.4-4.9) Chloride Level 83 mEQ/L (98-107) L Carbon Dioxide Level 49 mEQ/L (20-30) *H Anion Gap 10 (5-15) Blood Urea Nitrogen 20 mg/dL (7-23) Creatinine 1.0 mg/dL (0.5-0.9) H Estimat Glomerular Filtration Rate 56.0 mL/min (>60) Glucose Level 92 mg/dL (74-106) Calcium Level 9.0 mg/dL (8.6-10.2) Total Bilirubin 1.6 mg/dL (0.0-1.2) H Direct Bilirubin 0.4 mg/dL (0.1-0.3) H Aspartate Amino Transf (AST/SGOT) 27 U/L (5-40) Alanine Aminotransferase (ALT/SGPT) 25 U/L (3-33) Alkaline Phosphatase 62 U/L (35-104) Pro-B-Type Natriuretic Peptide 1348 pg/mL (0-125) H Total Protein 6.6 g/dL (6.6-8.7) Albumin 3.5 g/dL (3.5-5.2) Globulin 3.1 g/dL Albumin/Globulin Ratio 1.1 (1.0-2.7) Vancomycin Level Trough 14.4 ug/mL (5.0-12.0) H Current Medications Medications (Trade) Dose Ordered Sig/Lloyd Route PRN Reason Start Time Stop Time Status Last Admin Dose Admin Clotrimazole (Lotrimin) 1 applic EVERY 12 HOURS TOPIC 06/11/17 13:00 07/11/17 12:59 06/13/17 08:44 Furosemide 100 mg/ Dextrose 100 ml @ 10 mls/hr Q10H IV 06/10/17 15:00 07/10/17 14:59 06/13/17 13:13 Lamotrigine (LaMICtal) 150 mg DAILY ORAL 06/11/17 09:00 07/11/17 08:59 06/13/17 08:44 Piperacillin Sod/ Tazobactam Sod 3.375 gm/Dextrose 110 ml @ 27.5 mls/hr Q8HR@0200,1000,1800 IVPB 06/10/17 18:00 06/17/17 17:59 06/13/17 18:00 Promethazine HCl/ Codeine (Phenergan with Codeine) 5 ml Q4H PRN ORAL For Cough 06/10/17 14:00 07/10/17 13:59 Sildenafil Citrate (Revatio) 20 mg THREE TIMES A DAY ORAL 06/12/17 21:30 07/12/17 21:29 06/13/17 17:22 Trazodone HCl (Desyrel) 150 mg BEDTIME ORAL 06/10/17 21:00 07/10/17 20:59 06/12/17 21:00 Vancomycin HCl (Vanco rx to dose) 1 ea DAILY PRN MISC Per rx protocol 06/10/17 14:00 07/10/17 13:59 Vancomycin HCl 500 mg/Dextrose 110 ml @ 110 mls/hr Q12HR@0400,1600 IVPB 06/14/17 04:00 06/19/17 03:59 Vancomycin/Sodium Chloride 250 ml @ 166.667 mls/hr Q12HR@0400,1600 IVPB 06/12/17 16:00 06/13/17 23:59 06/13/17 16:13 Aki Blankenship M.D. Jun 13, 2017 18:43
[2017-06-13] MEDS: cefTRIAXone 2 GM in D5W 110 ML IVPB SCH (20:25)
[2017-06-13 20:38] VITALS: BP 121/68
[2017-06-13] MEDS: TraZODone 100mg tab ORAL SCH (21:46)
[2017-06-14] VITALS (8 sets, daily range): BP systolic 117–143; BP diastolic 66–73
[2017-06-14] MEDS: Vancomycin 500mg in D5W 110ml IVPB SCH ×2 (03:13→16:08)
[2017-06-14 05:50] LABS: BASOPHILS % (AUTO) 0.5 % (0.0-2.0); EOSINOPHILS % (AUTO) 0.5 % (0.0-3.0); LYMPHOCYTES % (AUTO) 19.8 % (20.0-45.0); MEAN CORPUSCULAR HEMOGLOBIN 29.5 PG (27.0-31.0); MEAN CORPUSCULAR HGB CONC 30.9 G/DL (32.0-36.0); MEAN CORPUSCULAR VOLUME 95 FL (80-99); MEAN PLATELET VOLUME 8.3 FL (6.5-10.1); MONOCYTES % (AUTO) 12.5 % (1.0-10.0); NEUTROPHILS % (AUTO) 66.7 % (45.0-75.0); PLATELET COUNT 141 K/UL (150-450); RED BLOOD COUNT 6.38 M/UL (4.20-5.40); RED CELL DISTRIBUTION WIDTH 19.1 % (11.6-14.8)
[2017-06-14 06:11] LABS: ALANINE AMINOTRANSFERASE 22 U/L (3-33); ASPARTATE AMINO TRANSFERASE 21 U/L (5-40); CALCIUM 9.6 mg/dL (8.6-10.2); CHLORIDE 80 mEQ/L (98-107); CREATININE 0.9 mg/dL (0.5-0.9); GLOMERULAR FILTRATION RATE > 60 mL/min (>60); HEMOLYSIS 11; SODIUM 139 mEQ/L (135-145); TOTAL PROTEIN 7.3 g/dL (6.6-8.7)
[2017-06-14 07:38] LABS: BILIRUBIN,DIRECT 0.4 mg/dL (0.1-0.3)
[2017-06-14 07:59] LABS: ANION GAP 11 (5-15); CARBON DIOXIDE 48 mEQ/L (20-30)
[2017-06-14] MEDS: Revatio 20mg tab ORAL SCH ×3 (09:00→17:22)
[2017-06-14] MEDS: LaMICtal 150mg tab ORAL SCH (09:00)
--- NOTE | 2017-06-14 09:08 | Diagnostic Imaging Report ---
Indication: Dyspnea Comparison: 06/13/17 A single view chest radiograph was obtained. Findings: Interstitial reticular densities are present at the lungs. Heart is enlarged. Bones are osteopenic. Impression: Interstitial disease. Suspect interstitial edema. There may be a chronic component as well.
--- NOTE | 2017-06-14 13:24 | General Progress Note ---
Assessment/Plan Status: unchanged Assessment/Plan - Cr 1.4 now down to 1.0 - COPD - HCAP (healthcare-associated pneumonia) - Urinary tract infection - Sepsis - Congestive heart failure K and mag supplement Monitor lytes and renal parameters avoid nephrotoxics optimize pulm and cardiac status Subjective ROS Limited/Unobtainable: No Constitutional: Reports: malaise Allergies: Coded Allergies: No Known Allergies (Unverified , 06/10/17) Objective Last 24 Hour Vital Signs Date Time Temp Pulse Resp B/P (MAP) Pulse Ox O2 Delivery O2 Flow Rate FiO2 06/14/17 12:00 97.9 72 18 127/72 94 Nasal Cannula 06/14/17 09:37 57 18 95 Facial 50 06/14/17 08:02 97.3 67 20 130/66 97 Bi-pap 06/14/17 08:00 57 06/14/17 08:00 50 06/14/17 07:20 97 Bi-pap 50 06/14/17 07:20 Bi-pap 50 06/14/17 07:16 61 18 97 Facial 50 06/14/17 05:09 66 18 91 Facial 50 06/14/17 04:00 50 06/14/17 04:00 56 06/14/17 04:00 97.0 55 20 117/68 97 Venturi Mask 14.0 50 06/14/17 00:54 97.7 73 20 124/73 98 Venturi Mask 06/14/17 00:48 66 18 94 Facial 50 06/14/17 00:00 97.7 73 20 124/73 98 Bi-pap 50 06/14/17 00:00 50 06/14/17 00:00 71 06/13/17 20:38 98.5 71 24 121/68 94 Venturi Mask 06/13/17 19:37 70 06/13/17 19:27 Venturi Mask 14.0 55 06/13/17 19:26 95 Venturi Mask 14.0 55 06/13/17 16:34 77 06/13/17 16:00 98.2 76 20 116/66 90 Nasal Cannula 4.0 06/13/17 16:00 15.0 55 Intake and Output 06/14/17 06/15/17 19:00 07:00 Intake Total 360 ml Balance 360 ml Intake Oral 240 ml IV Total 120 ml Laboratory Tests 06/13/17 15:05: Vancomycin Level Trough 14.4H 06/14/17 03:20: White Blood Count 8.0, Red Blood Count 6.38H, Hemoglobin 18.8*H, Hematocrit 60.8H, Mean Corpuscular Volume 95, Mean Corpuscular Hemoglobin 29.5, Mean Corpuscular Hemoglobin Concent 30.9L, Red Cell Distribution Width 19.1H, Platelet Count 141L, Mean Platelet Volume 8.3, Neutrophils (%) (Auto) 66.7, Lymphocytes (%) (Auto) 19.8L, Monocytes (%) (Auto) 12.5H, Eosinophils (%) (Auto ) 0.5, Basophils (%) (Auto) 0.5, Sodium Level 139, Potassium Level 3.0L, Chloride Level 80L, Carbon Dioxide Level 48*H, Anion Gap 11, Blood Urea Nitrogen 17, Creatinine 0.9, Estimat Glomerular Filtration Rate > 60, Glucose Level 75, Calcium Level 9.6, Magnesium Level 1.4L, Total Bilirubin 1.6H, Direct Bilirubin 0.4H, Aspartate Amino Transf (AST/SGOT) 21, Alanine Aminotransferase ( ALT/SGPT) 22, Alkaline Phosphatase 64, Pro-B-Type Natriuretic Peptide 1438H, Total Protein 7.3, Albumin 3.8, Globulin 3.5, Albumin/Globulin Ratio 1.0, Anti- Nuclear Antibody Screen [Pending], HIV (1&2) Antibody Rapid Negative Height (Feet): 5 Height (Inches): 7.00 Weight (Pounds): 200 General Appearance: no apparent distress EENT: other - BIPAP Respiratory/Chest: decreased breath sounds Objective no change in PE JENNIFER OVALLE Jun 14, 2017 13:24
[2017-06-14] MEDS ORDERED: Tubing IV Secondary IV ONE (13:33)
[2017-06-14] MEDS ORDERED: NS 275ml ONE (13:33)
--- NOTE | 2017-06-14 15:04 | Infectious Diseases Prog Note ---
Assessment/Plan Problems: (1) HCAP (healthcare-associated pneumonia) Assessment & Plan: with slight improvement on repeated CXR, on vancomycin and ceftriaxon , to cover for UTI too, await sputum culture , will treat for 7 days (2) Urinary tract infection Assessment & Plan: due to Klebsiella pneumonia, on ceftriaxon (3) Sepsis Assessment & Plan: due to the above, blood culture grew coag negative staph from one bottle , most likely contaminant, already on vancomycin (4) Congestive heart failure Assessment & Plan: needs diuresis , consult cardiology Subjective Constitutional: Reports: no symptoms HEENT: Reports: no symptoms Respiratory: Reports: shortness of breath Breasts: Reports: no symptoms Cardiovascular: Reports: no symptoms Gastrointestinal/Abdominal: Reports: no symptoms Genitourinary: Reports: no symptoms Neurologic: Reports: no symptoms Psychiatric: Reports: no symptoms Skin: Reports: no symptoms Endocrine: Reports: no symptoms Hematologic: Reports: no symptoms Allergies: Coded Allergies: No Known Allergies (Unverified , 06/10/17) Subjective she is still on BIPAP, awake and comfortable, respond to verbal commands, afebrile Objective Vital Signs Last 24 Hour Vital Signs Date Time Temp Pulse Resp B/P (MAP) Pulse Ox O2 Delivery O2 Flow Rate FiO2 06/14/17 12:00 97.9 72 18 127/72 94 Nasal Cannula 06/14/17 12:00 69 06/14/17 12:00 15.0 50 06/14/17 09:37 57 18 95 Facial 50 06/14/17 08:02 97.3 67 20 130/66 97 Bi-pap 06/14/17 08:00 57 06/14/17 08:00 50 06/14/17 07:20 97 Bi-pap 50 06/14/17 07:20 Bi-pap 50 06/14/17 07:16 61 18 97 Facial 50 06/14/17 05:09 66 18 91 Facial 50 06/14/17 04:00 50 06/14/17 04:00 56 06/14/17 04:00 97.0 55 20 117/68 97 Venturi Mask 14.0 50 06/14/17 00:54 97.7 73 20 124/73 98 Venturi Mask 06/14/17 00:48 66 18 94 Facial 50 06/14/17 00:00 97.7 73 20 124/73 98 Bi-pap 50 06/14/17 00:00 50 06/14/17 00:00 71 06/13/17 20:38 98.5 71 24 121/68 94 Venturi Mask 06/13/17 19:37 70 06/13/17 19:27 Venturi Mask 14.0 55 06/13/17 19:26 95 Venturi Mask 14.0 55 06/13/17 16:34 77 06/13/17 16:00 98.2 76 20 116/66 90 Nasal Cannula 4.0 06/13/17 16:00 15.0 55 Height (Feet): 5 Height (Inches): 7.00 Weight (Pounds): 200 General Appearance: WD/WN, no acute distress HEENT: normocephalic, atraumatic, anicteric, mucous membranes moist Respiratory/Chest: chest wall non-tender, normal breath sounds, no respiratory distress, no accessory muscle use, decreased breath sounds, crackles/rales Cardiovascular: normal peripheral pulses, normal rate, regular rhythm, no JVD Abdomen: normal bowel sounds, soft, non tender, no organomegaly, non distended , no mass Extremities: no cyanosis, no clubbing Skin: no rash, no lesions Neurologic/Psychiatric: alert, responsive Laboratory Tests Test 06/13/17 15:05 06/14/17 03:20 Vancomycin Level Trough 14.4 ug/mL (5.0-12.0) H White Blood Count 8.0 K/UL (4.8-10.8) Red Blood Count 6.38 M/UL (4.20-5.40) H Hemoglobin 18.8 G/DL (12.0-16.0) *H Hematocrit 60.8 % (37.0-47.0) H Mean Corpuscular Volume 95 FL (80-99) Mean Corpuscular Hemoglobin 29.5 PG (27.0-31.0) Mean Corpuscular Hemoglobin Concent 30.9 G/DL (32.0-36.0) L Red Cell Distribution Width 19.1 % (11.6-14.8) H Platelet Count 141 K/UL (150-450) L Mean Platelet Volume 8.3 FL (6.5-10.1) Neutrophils (%) (Auto) 66.7 % (45.0-75.0) Lymphocytes (%) (Auto) 19.8 % (20.0-45.0) L Monocytes (%) (Auto) 12.5 % (1.0-10.0) H Eosinophils (%) (Auto) 0.5 % (0.0-3.0) Basophils (%) (Auto) 0.5 % (0.0-2.0) Sodium Level 139 mEQ/L (135-145) Potassium Level 3.0 mEQ/L (3.4-4.9) L Chloride Level 80 mEQ/L (98-107) L Carbon Dioxide Level 48 mEQ/L (20-30) *H Anion Gap 11 (5-15) Blood Urea Nitrogen 17 mg/dL (7-23) Creatinine 0.9 mg/dL (0.5-0.9) Estimat Glomerular Filtration Rate > 60 mL/min (>60) Glucose Level 75 mg/dL (74-106) Calcium Level 9.6 mg/dL (8.6-10.2) Magnesium Level 1.4 mg/dL (1.7-2.5) L Total Bilirubin 1.6 mg/dL (0.0-1.2) H Direct Bilirubin 0.4 mg/dL (0.1-0.3) H Aspartate Amino Transf (AST/SGOT) 21 U/L (5-40) Alanine Aminotransferase (ALT/SGPT) 22 U/L (3-33) Alkaline Phosphatase 64 U/L (35-104) Pro-B-Type Natriuretic Peptide 1438 pg/mL (0-125) H Total Protein 7.3 g/dL (6.6-8.7) Albumin 3.8 g/dL (3.5-5.2) Globulin 3.5 g/dL Albumin/Globulin Ratio 1.0 (1.0-2.7) Anti-Nuclear Antibody Screen Pending HIV (1&2) Antibody Rapid Negative (NEGATIVE) Current Medications Medications (Trade) Dose Ordered Sig/Lloyd Route PRN Reason Start Time Stop Time Status Last Admin Dose Admin Ceftriaxone Sodium 2 gm/ Dextrose 110 ml @ 220 mls/hr Q24H IVPB 06/13/17 20:00 06/20/17 19:59 06/13/17 20:25 Clotrimazole (Lotrimin) 1 applic EVERY 12 HOURS TOPIC 06/11/17 13:00 07/11/17 12:59 06/14/17 09:01 Furosemide 100 mg/ Dextrose 100 ml @ 10 mls/hr Q10H IV 06/10/17 15:00 07/10/17 14:59 06/14/17 09:00 Lamotrigine (LaMICtal) 150 mg DAILY ORAL 06/11/17 09:00 07/11/17 08:59 06/14/17 09:00 Promethazine HCl/ Codeine (Phenergan with Codeine) 5 ml Q4H PRN ORAL For Cough 06/10/17 14:00 07/10/17 13:59 Sildenafil Citrate (Revatio) 20 mg THREE TIMES A DAY ORAL 06/12/17 21:30 07/12/17 21:29 06/14/17 12:16 Trazodone HCl (Desyrel) 150 mg BEDTIME ORAL 06/10/17 21:00 07/10/17 20:59 06/13/17 21:46 Vancomycin HCl (Vanco rx to dose) 1 ea DAILY PRN MISC Per rx protocol 06/10/17 14:00 07/10/17 13:59 Vancomycin HCl 500 mg/Dextrose 110 ml @ 110 mls/hr Q12HR@0400,1600 IVPB 06/14/17 04:00 06/19/17 03:59 06/14/17 03:13 Aki Blankenship M.D. Jun 14, 2017 15:04
--- NOTE | 2017-06-14 18:12 | Pulmonology Progress Note ---
Assessment/Plan Assessment/Plan ASSESSMENT Acute hypoxemic hypercapnic respiratory failure requiring BiPAP Acute on chronic diastolic CHF Cor pulmonale with moderate to severe pulmonary HTN Possible obesity hypoventilation syndrome Sepsis Possible HCAP UTI with Klebsiella COPD HTN DM ARF, resolved R butt[place] st 3 decub ulcer, POA Obesity PLAN OF CARE [place] status weaned from BiPAP to VM 50% titrate FiO2 to keep sat above 92% Acidosis resolved, still severe hypercapnia, likely partly chronic Pulmonary toilet Initial CXR with CHF, fup CXR with slight improvement Lasix gtt Monitor I/O, renal parameters, lytes replace K and Mg today and check in am Cardio follows ECHO with pEF 60-65% and RVSP of 55, c/w moderate pulmonary HTN Patient needs w/up for pulmonary HTN as per cardio note Will get CONCHITA panel ( r/o CTD), HIV test, VQ scan to r/o chronic PE Venous Duplex BLE negative Abx ID follows Sputum cx negative Urine cx + Klebsiella Blood cx SCON, likely contaminant BP management BS management, HgbA1c at goal-6.4 Wound care as per wound nurse recommendations ARF resolved, likely prerenal Psych follows, optimized psych med regimen c case discussed and evaluated by supervising physician Subjective Allergies: Coded Allergies: No Known Allergies (Unverified , 06/10/17) Subjective afebrile, no leukocytoids in am was able to be down graded to VM 50% from BiPAP 15/5 50% no signs of respiratory distress Objective Last 24 Hour Vital Signs Date Time Temp Pulse Resp B/P (MAP) Pulse Ox O2 Delivery O2 Flow Rate FiO2 06/14/17 16:06 97.7 59 18 143/66 96 Room Air 06/14/17 16:00 15.0 50 06/14/17 16:00 71 06/14/17 12:00 97.9 72 18 127/72 94 Nasal Cannula 06/14/17 12:00 69 06/14/17 12:00 15.0 50 06/14/17 09:37 57 18 95 Facial 50 06/14/17 08:02 97.3 67 20 130/66 97 Bi-pap 06/14/17 08:00 57 06/14/17 08:00 50 06/14/17 07:20 97 Bi-pap 50 06/14/17 07:20 Bi-pap 50 06/14/17 07:16 61 18 97 Facial 50 06/14/17 05:09 66 18 91 Facial 50 06/14/17 04:00 50 06/14/17 04:00 56 06/14/17 04:00 97.0 55 20 117/68 97 Venturi Mask 14.0 50 06/14/17 00:54 97.7 73 20 124/73 98 Venturi Mask 06/14/17 00:48 66 18 94 Facial 50 06/14/17 00:00 97.7 73 20 124/73 98 Bi-pap 50 06/14/17 00:00 50 06/14/17 00:00 71 06/13/17 20:38 98.5 71 24 121/68 94 Venturi Mask 06/13/17 19:37 70 06/13/17 19:27 Venturi Mask 14.0 55 06/13/17 19:26 95 Venturi Mask 14.0 55 Intake and Output 06/14/17 06/15/17 19:00 07:00 Intake Total 860 ml Output Total 1300 ml Balance -440 ml Intake Oral 480 ml IV Total 380 ml Output Urine Total 1300 ml # Voids 1 General Appearance: no acute distress HEENT: normocephalic, atraumatic, anicteric, other - VM 50% on Respiratory/Chest: no respiratory distress, decreased breath sounds Cardiovascular: normal peripheral pulses, normal rate, regular rhythm, bradycardia - 56 SB Abdomen: normal bowel sounds, soft, non tender - obese Extremities: no edema Neurologic/Psychiatric: alert, responsive Musculoskeletal: atrophy - BLE Laboratory Tests 06/14/17 03:20: White Blood Count 8.0, Red Blood Count 6.38H, Hemoglobin 18.8*H, Hematocrit 60.8H, Mean Corpuscular Volume 95, Mean Corpuscular Hemoglobin 29.5, Mean Corpuscular Hemoglobin Concent 30.9L, Red Cell Distribution Width 19.1H, Platelet Count 141L, Mean Platelet Volume 8.3, Neutrophils (%) (Auto) 66.7, Lymphocytes (%) (Auto) 19.8L, Monocytes (%) (Auto) 12.5H, Eosinophils (%) (Auto ) 0.5, Basophils (%) (Auto) 0.5, Sodium Level 139, Potassium Level 3.0L, Chloride Level 80L, Carbon Dioxide Level 48*H, Anion Gap 11, Blood Urea Nitrogen 17, Creatinine 0.9, Estimat Glomerular Filtration Rate > 60, Glucose Level 75, Calcium Level 9.6, Magnesium Level 1.4L, Total Bilirubin 1.6H, Direct Bilirubin 0.4H, Aspartate Amino Transf (AST/SGOT) 21, Alanine Aminotransferase ( ALT/SGPT) 22, Alkaline Phosphatase 64, Pro-B-Type Natriuretic Peptide 1438H, Total Protein 7.3, Albumin 3.8, Globulin 3.5, Albumin/Globulin Ratio 1.0, Anti- Nuclear Antibody Screen [Pending], HIV (1&2) Antibody Rapid Negative Current Medications Medications (Trade) Dose Ordered Sig/Lloyd Route PRN Reason Start Time Stop Time Status Last Admin Dose Admin Ceftriaxone Sodium 2 gm/ Dextrose 110 ml @ 220 mls/hr Q24H IVPB 06/13/17 20:00 06/20/17 19:59 06/13/17 20:25 Clotrimazole (Lotrimin) 1 applic EVERY 12 HOURS TOPIC 06/11/17 13:00 07/11/17 12:59 06/14/17 09:01 Furosemide 100 mg/ Dextrose 100 ml @ 10 mls/hr Q10H IV 06/10/17 15:00 07/10/17 14:59 06/14/17 17:35 Lamotrigine (LaMICtal) 150 mg DAILY ORAL 06/11/17 09:00 07/11/17 08:59 06/14/17 09:00 Promethazine HCl/ Codeine (Phenergan with Codeine) 5 ml Q4H PRN ORAL For Cough 06/10/17 14:00 07/10/17 13:59 Sildenafil Citrate (Revatio) 20 mg THREE TIMES A DAY ORAL 06/12/17 21:30 07/12/17 21:29 06/14/17 17:22 Trazodone HCl (Desyrel) 150 mg BEDTIME ORAL 06/10/17 21:00 07/10/17 20:59 06/13/17 21:46 Vancomycin HCl (Vanco rx to dose) 1 ea DAILY PRN MISC Per rx protocol 06/10/17 14:00 07/10/17 13:59 Vancomycin HCl 500 mg/Dextrose 110 ml @ 110 mls/hr Q12HR@0400,1600 IVPB 06/14/17 04:00 06/19/17 03:59 06/14/17 16:08 Amaury ([facility])Sherry NP Jun 14, 2017 18:12
[2017-06-14] MEDS ORDERED: DuoNeb 0.5-3(2.5)mg/3ml neb HHN PRN (19:00)
[2017-06-14] MEDS: cefTRIAXone 2 GM in D5W 110 ML IVPB SCH (20:29)
[2017-06-14] MEDS: TraZODone 100mg tab ORAL SCH (20:29)
--- NOTE | 2017-06-14 20:53 | General Progress Note ---
Assessment/Plan Problem List: (1) COPD (chronic obstructive pulmonary disease) ICD Codes: J44.9 - Chronic obstructive pulmonary disease, unspecified SNOMED: 15160331 (2) Congestive heart failure ICD Codes: I50.9 - Heart failure, unspecified SNOMED: 08322467 (3) Hypoxemia ICD Codes: R09.02 - Hypoxemia SNOMED: 299634943 (4) Acute respiratory failure ICD Codes: J96.00 - Acute respiratory failure, unspecified whether with hypoxia or hypercapnia SNOMED: 30412636 Status: progressing Assessment/Plan no wheezing reviewed chart afebrile resp insuff s/p bipap clinically improving Subjective Respiratory: Reports: shortness of breath Allergies: Coded Allergies: No Known Allergies (Unverified , 06/10/17) Objective Last 24 Hour Vital Signs Date Time Temp Pulse Resp B/P (MAP) Pulse Ox O2 Delivery O2 Flow Rate FiO2 06/14/17 19:01 97.9 92 20 129/70 96 Nasal Cannula 2.0 06/14/17 18:44 Venturi Mask 14.0 55 06/14/17 18:44 97 Venturi Mask 14.0 50 06/14/17 16:06 97.7 59 18 143/66 96 Room Air 06/14/17 16:00 15.0 50 06/14/17 16:00 71 06/14/17 12:00 97.9 72 18 127/72 94 Nasal Cannula 06/14/17 12:00 69 06/14/17 12:00 15.0 50 06/14/17 09:37 57 18 95 Facial 50 06/14/17 08:02 97.3 67 20 130/66 97 Bi-pap 06/14/17 08:00 57 06/14/17 08:00 50 06/14/17 07:20 97 Bi-pap 50 06/14/17 07:20 Bi-pap 50 06/14/17 07:16 61 18 97 Facial 50 06/14/17 05:09 66 18 91 Facial 50 06/14/17 04:00 50 06/14/17 04:00 56 06/14/17 04:00 97.0 55 20 117/68 97 Venturi Mask 14.0 50 06/14/17 00:54 97.7 73 20 124/73 98 Venturi Mask 06/14/17 00:48 66 18 94 Facial 50 06/14/17 00:00 97.7 73 20 124/73 98 Bi-pap 50 06/14/17 00:00 50 06/14/17 00:00 71 Intake and Output 06/14/17 06/15/17 19:00 07:00 Intake Total 990 ml Output Total 1300 ml Balance -310 ml Intake Oral 480 ml IV Total 510 ml Output Urine Total 1300 ml # Voids 1 Laboratory Tests 06/14/17 03:20: White Blood Count 8.0, Red Blood Count 6.38H, Hemoglobin 18.8*H, Hematocrit 60.8H, Mean Corpuscular Volume 95, Mean Corpuscular Hemoglobin 29.5, Mean Corpuscular Hemoglobin Concent 30.9L, Red Cell Distribution Width 19.1H, Platelet Count 141L, Mean Platelet Volume 8.3, Neutrophils (%) (Auto) 66.7, Lymphocytes (%) (Auto) 19.8L, Monocytes (%) (Auto) 12.5H, Eosinophils (%) (Auto ) 0.5, Basophils (%) (Auto) 0.5, Sodium Level 139, Potassium Level 3.0L, Chloride Level 80L, Carbon Dioxide Level 48*H, Anion Gap 11, Blood Urea Nitrogen 17, Creatinine 0.9, Estimat Glomerular Filtration Rate > 60, Glucose Level 75, Calcium Level 9.6, Magnesium Level 1.4L, Total Bilirubin 1.6H, Direct Bilirubin 0.4H, Aspartate Amino Transf (AST/SGOT) 21, Alanine Aminotransferase ( ALT/SGPT) 22, Alkaline Phosphatase 64, Pro-B-Type Natriuretic Peptide 1438H, Total Protein 7.3, Albumin 3.8, Globulin 3.5, Albumin/Globulin Ratio 1.0, Anti- Nuclear Antibody Screen [Pending], HIV (1&2) Antibody Rapid Negative Height (Feet): 5 Height (Inches): 7.00 Weight (Pounds): 200 Olu Calero MD Jun 14, 2017 20:53
--- NOTE | 2017-06-14 23:51 | Cardiology Progress Note ---
Assessment/Plan Assessment/Plan 1. Cor pulmonale with moderate to severe pulmonary HTN, requires right heart cath to assess NO reactivity, continue digoxin, Work up of pulmonary HTN required, including VQ scan to rule out chronic PE, ?ILD, ?connective tissue disease, ?HIV disease, etc. 2. Hypoxemia, resolved, possible obesity hypoventilation syndrome. Subjective Subjective Sinus rhythm at 77, on facial mask. Objective Last 24 Hour Vital Signs Date Time Temp Pulse Resp B/P (MAP) Pulse Ox O2 Delivery O2 Flow Rate FiO2 06/14/17 22:32 68 18 95 Facial 50 06/14/17 20:00 98.3 76 24 118/67 91 Venturi Mask 3.0 50 06/14/17 19:01 97.9 92 20 129/70 96 Nasal Cannula 2.0 06/14/17 18:44 Venturi Mask 14.0 55 06/14/17 18:44 97 Venturi Mask 14.0 50 06/14/17 16:06 97.7 59 18 143/66 96 Room Air 06/14/17 16:00 15.0 50 06/14/17 16:00 71 06/14/17 12:00 97.9 72 18 127/72 94 Nasal Cannula 06/14/17 12:00 69 06/14/17 12:00 15.0 50 06/14/17 09:37 57 18 95 Facial 50 06/14/17 08:02 97.3 67 20 130/66 97 Bi-pap 06/14/17 08:00 57 06/14/17 08:00 50 06/14/17 07:20 97 Bi-pap 50 06/14/17 07:20 Bi-pap 50 06/14/17 07:16 61 18 97 Facial 50 06/14/17 05:09 66 18 91 Facial 50 06/14/17 04:00 50 06/14/17 04:00 56 06/14/17 04:00 97.0 55 20 117/68 97 Venturi Mask 14.0 50 06/14/17 00:54 97.7 73 20 124/73 98 Venturi Mask 06/14/17 00:48 66 18 94 Facial 50 06/14/17 00:00 97.7 73 20 124/73 98 Bi-pap 50 06/14/17 00:00 50 06/14/17 00:00 71 Intake and Output 06/14/17 06/15/17 19:00 07:00 Intake Total 990 ml Output Total 1300 ml Balance -310 ml Intake Oral 480 ml IV Total 510 ml Output Urine Total 1300 ml # Voids 1 2D Echo: LVEF 65% RA/RV dilatation, RVSO 58 mmHg, Grade I lVDD Laboratory Tests Test 06/14/17 03:20 White Blood Count 8.0 K/UL (4.8-10.8) Red Blood Count 6.38 M/UL (4.20-5.40) H Hemoglobin 18.8 G/DL (12.0-16.0) *H Hematocrit 60.8 % (37.0-47.0) H Mean Corpuscular Volume 95 FL (80-99) Mean Corpuscular Hemoglobin 29.5 PG (27.0-31.0) Mean Corpuscular Hemoglobin Concent 30.9 G/DL (32.0-36.0) L Red Cell Distribution Width 19.1 % (11.6-14.8) H Platelet Count 141 K/UL (150-450) L Mean Platelet Volume 8.3 FL (6.5-10.1) Neutrophils (%) (Auto) 66.7 % (45.0-75.0) Lymphocytes (%) (Auto) 19.8 % (20.0-45.0) L Monocytes (%) (Auto) 12.5 % (1.0-10.0) H Eosinophils (%) (Auto) 0.5 % (0.0-3.0) Basophils (%) (Auto) 0.5 % (0.0-2.0) Sodium Level 139 mEQ/L (135-145) Potassium Level 3.0 mEQ/L (3.4-4.9) L Chloride Level 80 mEQ/L (98-107) L Carbon Dioxide Level 48 mEQ/L (20-30) *H Anion Gap 11 (5-15) Blood Urea Nitrogen 17 mg/dL (7-23) Creatinine 0.9 mg/dL (0.5-0.9) Estimat Glomerular Filtration Rate > 60 mL/min (>60) Glucose Level 75 mg/dL (74-106) Calcium Level 9.6 mg/dL (8.6-10.2) Magnesium Level 1.4 mg/dL (1.7-2.5) L Total Bilirubin 1.6 mg/dL (0.0-1.2) H Direct Bilirubin 0.4 mg/dL (0.1-0.3) H Aspartate Amino Transf (AST/SGOT) 21 U/L (5-40) Alanine Aminotransferase (ALT/SGPT) 22 U/L (3-33) Alkaline Phosphatase 64 U/L (35-104) Pro-B-Type Natriuretic Peptide 1438 pg/mL (0-125) H Total Protein 7.3 g/dL (6.6-8.7) Albumin 3.8 g/dL (3.5-5.2) Globulin 3.5 g/dL Albumin/Globulin Ratio 1.0 (1.0-2.7) Anti-Nuclear Antibody Screen Pending HIV (1&2) Antibody Rapid Negative (NEGATIVE) Objective HEENT: Normocephalic and atraumatic. Pupils reactive to light. Pale sclera. Unable to assess oral mucosa due to BiPAP mask. NECK: Cannot assess JVD. CARDIOVASCULAR: Regular rate and rhythm. No murmurs, gallops or rubs LUNGS: She had crackles. Diminished breathing sounds at the bases. Normal breathing effort. ABDOMEN: Soft, obese, nontender, and nondistended. Positive bowel sounds. No hepatosplenomegaly. No ascites. EXTREMITIES: No edema, clubbing or cyanosis. VIVIANE EDUARDO Jun 14, 2017 23:51
[2017-06-15] VITALS: BP 110/60
[2017-06-15] MEDS ORDERED: Digoxin 0.125mg tab ORAL ONE
[2017-06-15] MEDS: Vancomycin 500mg in D5W 110ml IVPB SCH ×2 (03:49→15:59)
[2017-06-15 04:00] VITALS: BP 132/83
[2017-06-15 05:04] LABS: EOSINOPHILS % (AUTO) 1.2 % (0.0-3.0); LYMPHOCYTES % (AUTO) 21.5 % (20.0-45.0); MEAN CORPUSCULAR HEMOGLOBIN 28.4 PG (27.0-31.0); MEAN CORPUSCULAR HGB CONC 29.9 G/DL (32.0-36.0); MEAN CORPUSCULAR VOLUME 95 FL (80-99); MEAN PLATELET VOLUME 7.1 FL (6.5-10.1); MONOCYTES % (AUTO) 13.7 % (1.0-10.0); NEUTROPHILS % (AUTO) 62.6 % (45.0-75.0); PLATELET COUNT 136 K/UL (150-450); RED BLOOD COUNT 6.88 M/UL (4.20-5.40); WHITE BLOOD COUNT 8.9 K/UL (4.8-10.8)
[2017-06-15 05:41] LABS: CALCIUM 9.5 mg/dL (8.6-10.2); MAGNESIUM 1.9 mg/dL (1.7-2.5); POTASSIUM 3.8 mEQ/L (3.4-4.9)
[2017-06-15 08:31] VITALS: BP 131/78
[2017-06-15] MEDS: Aspirin Baby 81mg ORAL SCH (10:08)
[2017-06-15] MEDS: LaMICtal 150mg tab ORAL SCH (10:08)
[2017-06-15] MEDS: Revatio 20mg tab ORAL SCH ×3 (10:08→17:45)
--- NOTE | 2017-06-15 10:52 | Pulmonology Progress Note ---
Assessment/Plan Assessment/Plan ASSESSMENT Acute hypoxemic hypercapnic respiratory failure requiring BiPAP Acute on chronic diastolic CHF Cor pulmonale with moderate to severe pulmonary HTN Possible obesity hypoventilation syndrome Sepsis Possible HCAP UTI with Klebsiella COPD HTN DM ARF, resolved R buttock st 3 decub ulcer, POA Obesity PLAN OF C[employer] [place] status weaned from BiPAP to VM 50% titrate FiO2 to keep sat above 92% ABG noted Acidosis resolved, still severe hypercapnia, likely partly chronic start on Diamox for 3 days Pulmonary toilet Initial CXR with CHF, fup CXR with slight improvement pro BNP w/out change Lasix gtt continue Monitor I/O, renal parameters, lytes K and Mg stable after replacement, CXR in am Cardio follows ECHO with pEF 60-65% and RVSP of 55, c/w moderate pulmonary HTN Patient needs w/up for pulmonary HTN as per cardio note Will get CONCHITA panel ( r/o CTD), HIV test, VQ scan to r/o chronic PE Venous Duplex BLE negative Abx ID follows Sputum cx negative Urine cx + Klebsiella Blood cx SCON, likely contaminant BP management BS management, HgbA1c at goal-6.4 Wound care as per wound nurse recommendations ARF resolved, likely prerenal Psych follows, optimized psych med regimen case discussed and evaluated by supervising physician Subjective Allergies: Coded Allergies: No Known Allergies (Unverified , 06/10/17) Subjective afebrile, no leukocytoids off BiPAP on VM 50% no signs of respiratory distress Objective Last 24 Hour Vital Signs Date Time Temp Pulse Resp B/P (MAP) Pulse Ox O2 Delivery O2 Flow Rate FiO2 06/15/17 09:30 62 20 94 06/15/17 08:31 97.8 66 20 131/78 96 Venturi Mask 06/15/17 07:10 52 19 98 Facial 50 06/15/17 07:10 Bi-pap 50 06/15/17 07:09 98 Bi-pap 50 06/15/17 05:15 56 18 97 Facial 50 06/15/17 04:00 98.0 61 18 132/83 96 Venturi Mask 50 06/15/17 04:00 59 06/15/17 04:00 50 06/15/17 02:55 56 20 95 Facial 50 06/15/17 00:44 66 20 95 Facial 50 06/15/17 00:09 68 06/15/17 00:00 64 06/15/17 00:00 98.1 77 20 110/60 95 Venturi Mask 50 06/14/17 22:32 68 18 95 Facial 50 06/14/17 20:00 98.3 76 24 118/67 91 Venturi Mask 3.0 50 06/14/17 20:00 50 06/14/17 20:00 80 06/14/17 19:01 97.9 92 20 129/70 96 Nasal Cannula 2.0 06/14/17 18:44 Venturi Mask 14.0 55 06/14/17 18:44 97 Venturi Mask 14.0 50 06/14/17 16:06 97.7 59 18 143/66 96 Room Air 06/14/17 16:00 15.0 50 06/14/17 16:00 71 06/14/17 12:00 97.9 72 18 127/72 94 Nasal Cannula 06/14/17 12:00 69 06/14/17 12:00 15.0 50 Objective General Appearance: no acute distress HEENT: normocephalic, atraumatic, anicteric, other - VM 50% on Respiratory/Chest: no respiratory distress, decreased breath sounds Cardiovascular: normal peripheral pulses, normal rate and rhythm, regular rhythm, Abdomen: normal bowel sounds, soft, non tender, obese Extremities: no edema Neurologic/Psychiatric: alert, responsive Musculoskeletal: atrophy - BLE Laboratory Tests 06/15/17 03:30: White Blood Count 8.9, Red Blood Count 6.88H, Hemoglobin 19.5*H, Hematocrit 65.2H, Mean Corpuscular Volume 95, Mean Corpuscular Hemoglobin 28.4, Mean Corpuscular Hemoglobin Concent 29.9L, Red Cell Distribution Width 19.0H, Platelet Count 136L, Mean Platelet Volume 7.1, Neutrophils (%) (Auto) 62.6, Lymphocytes (%) (Auto) 21.5, Monocytes (%) (Auto) 13.7H, Eosinophils (%) (Auto) 1.2, Basophils (%) (Auto) 1.0, Sodium Level 142, Potassium Level 3.8, Chloride Level 83L, Carbon Dioxide Level 46*H, Anion Gap 13, Blood Urea Nitrogen 24H, Creatinine 1.0H, Estimat Glomerular Filtration Rate 56.0, Glucose Level 111H, Calcium Level 9.5, Magnesium Level 1.9 Current Medications Medications (Trade) Dose Ordered Sig/Lloyd Route PRN Reason Start Time Stop Time Status Last Admin Dose Admin Albuterol/ Ipratropium (DuoNeb 0.5-3(2.5)mg/3ml) 3 ml Q4HRT PRN HHN sob 06/14/17 19:00 06/19/17 18:59 Aspirin (ASA) 81 mg DAILY ORAL 06/15/17 09:00 07/15/17 08:59 06/15/17 10:08 Ceftriaxone Sodium 2 gm/ Dextrose 110 ml @ 220 mls/hr Q24H IVPB 06/13/17 20:00 06/20/17 19:59 06/14/17 20:29 Clotrimazole (Lotrimin) 1 applic EVERY 12 HOURS TOPIC 06/11/17 13:00 07/11/17 12:59 06/15/17 10:08 Furosemide 100 mg/ Dextrose 100 ml @ 10 mls/hr Q10H IV 06/10/17 15:00 07/10/17 14:59 06/15/17 05:25 Lamotrigine (LaMICtal) 150 mg DAILY ORAL 06/11/17 09:00 07/11/17 08:59 06/15/17 10:08 Promethazine HCl/ Codeine (Phenergan with Codeine) 5 ml Q4H PRN ORAL For Cough 06/10/17 14:00 07/10/17 13:59 Sildenafil Citrate (Revatio) 20 mg THREE TIMES A DAY ORAL 06/12/17 21:30 07/12/17 21:29 06/15/17 10:08 Trazodone HCl (Desyrel) 150 mg BEDTIME ORAL 06/10/17 21:00 07/10/17 20:59 06/14/17 20:29 Vancomycin HCl (Vanco rx to dose) 1 ea DAILY PRN MISC Per rx protocol 06/10/17 14:00 07/10/17 13:59 Vancomycin HCl 500 mg/Dextrose 110 ml @ 110 mls/hr Q12HR@0400,1600 IVPB 06/14/17 04:00 06/19/17 03:59 06/15/17 03:49 Sherry Rebolledo NP ([facility]) Jun 15, 2017 10:52
--- NOTE | 2017-06-15 11:40 | General Progress Note ---
Assessment/Plan Status: stable - from renal stand Status Narrative Still retaining CO2 Assessment/Plan - Cr 1.4 now down to 1.0 - COPD - HCAP (healthcare-associated pneumonia) - Urinary tract infection - Sepsis - Congestive heart failure K and mag supplement as needed. Trial Diamox Monitor lytes and renal parameters avoid nephrotoxics optimize pulm and cardiac status Subjective ROS Limited/Unobtainable: No Constitutional: Reports: malaise Allergies: Coded Allergies: No Known Allergies (Unverified , 06/10/17) Objective Last 24 Hour Vital Signs Date Time Temp Pulse Resp B/P (MAP) Pulse Ox O2 Delivery O2 Flow Rate FiO2 06/15/17 10:46 60 20 96 06/15/17 09:30 62 20 94 06/15/17 08:31 97.8 66 20 131/78 96 Venturi Mask 06/15/17 07:10 52 19 98 Facial 50 06/15/17 07:10 Bi-pap 50 06/15/17 07:09 98 Bi-pap 50 06/15/17 05:15 56 18 97 Facial 50 06/15/17 04:00 98.0 61 18 132/83 96 Venturi Mask 50 06/15/17 04:00 59 06/15/17 04:00 50 06/15/17 02:55 56 20 95 Facial 50 06/15/17 00:44 66 20 95 Facial 50 06/15/17 00:09 68 06/15/17 00:00 64 06/15/17 00:00 98.1 77 20 110/60 95 Venturi Mask 50 06/14/17 22:32 68 18 95 Facial 50 06/14/17 20:00 98.3 76 24 118/67 91 Venturi Mask 3.0 50 06/14/17 20:00 50 06/14/17 20:00 80 06/14/17 19:01 97.9 92 20 129/70 96 Nasal Cannula 2.0 06/14/17 18:44 Venturi Mask 14.0 55 06/14/17 18:44 97 Venturi Mask 14.0 50 06/14/17 16:06 97.7 59 18 143/66 96 Room Air 06/14/17 16:00 15.0 50 06/14/17 16:00 71 06/14/17 12:00 97.9 72 18 127/72 94 Nasal Cannula 06/14/17 12:00 69 06/14/17 12:00 15.0 50 Intake and Output 06/15/17 06/16/17 19:00 07:00 Intake Total 40 ml Balance 40 ml IV Total 40 ml Laboratory Tests 06/15/17 03:30: White Blood Count 8.9, Red Blood Count 6.88H, Hemoglobin 19.5*H, Hematocrit 65.2H, Mean Corpuscular Volume 95, Mean Corpuscular Hemoglobin 28.4, Mean Corpuscular Hemoglobin Concent 29.9L, Red Cell Distribution Width 19.0H, Platelet Count 136L, Mean Platelet Volume 7.1, Neutrophils (%) (Auto) 62.6, Lymphocytes (%) (Auto) 21.5, Monocytes (%) (Auto) 13.7H, Eosinophils (%) (Auto) 1.2, Basophils (%) (Auto) 1.0, Sodium Level 142, Potassium Level 3.8, Chloride Level 83L, Carbon Dioxide Level 46*H, Anion Gap 13, Blood Urea Nitrogen 24H, Creatinine 1.0H, Estimat Glomerular Filtration Rate 56.0, Glucose Level 111H, Calcium Level 9.5, Magnesium Level 1.9 Height (Feet): 5 Height (Inches): 7.00 Weight (Pounds): 200 General Appearance: no apparent distress Objective no change in PE JENNIFER OVALLE Jun 15, 2017 11:40
[2017-06-15 12:15] VITALS: BP 124/77
[2017-06-15 16:35] VITALS: BP 145/84
[2017-06-15 20:16] VITALS: BP 114/65
[2017-06-15] MEDS: TraZODone 100mg tab ORAL SCH (20:37)
[2017-06-15] MEDS: Miralax 17gm pkt ORAL SCH (20:37)
[2017-06-15] MEDS: cefTRIAXone 2 GM in D5W 110 ML IVPB SCH (20:37)
--- NOTE | 2017-06-15 20:42 | General Progress Note ---
Assessment/Plan Problem List: (1) COPD (chronic obstructive pulmonary disease) ICD Codes: J44.9 - Chronic obstructive pulmonary disease, unspecified SNOMED: 13110949 (2) Congestive heart failure ICD Codes: I50.9 - Heart failure, unspecified SNOMED: 17678423 (3) Hypoxemia ICD Codes: R09.02 - Hypoxemia SNOMED: 156703683 (4) Acute respiratory failure ICD Codes: J96.00 - Acute respiratory failure, unspecified whether with hypoxia or hypercapnia SNOMED: 20112405 Status: progressing Assessment/Plan afebrile vitals stable increasing hb treatment per heme/onc s/p bipap copd resp insuff Subjective ROS Limited/Unobtainable: Yes Allergies: Coded Allergies: No Known Allergies (Unverified , 06/10/17) Objective Last 24 Hour Vital Signs Date Time Temp Pulse Resp B/P (MAP) Pulse Ox O2 Delivery O2 Flow Rate FiO2 06/15/17 20:16 98.1 72 18 114/65 94 Venturi Mask 50 06/15/17 19:17 97 Venturi Mask 14.0 50 06/15/17 19:17 Venturi Mask 14.0 55 06/15/17 17:36 72 20 95 06/15/17 16:35 97.5 72 20 145/84 95 Venturi Mask 06/15/17 15:47 63 06/15/17 15:10 70 20 95 06/15/17 12:56 66 20 94 06/15/17 12:15 97.6 64 20 124/77 94 Venturi Mask 06/15/17 12:00 64 06/15/17 10:46 60 20 96 06/15/17 09:30 62 20 94 06/15/17 08:31 97.8 66 20 131/78 96 Venturi Mask 06/15/17 08:00 50 06/15/17 07:10 52 19 98 Facial 50 06/15/17 07:10 Bi-pap 50 06/15/17 07:09 98 Bi-pap 50 06/15/17 05:15 56 18 97 Facial 50 06/15/17 04:00 98.0 61 18 132/83 96 Venturi Mask 50 06/15/17 04:00 59 06/15/17 04:00 50 06/15/17 02:55 56 20 95 Facial 50 06/15/17 00:44 66 20 95 Facial 50 06/15/17 00:09 68 06/15/17 00:00 64 06/15/17 00:00 98.1 77 20 110/60 95 Venturi Mask 50 06/14/17 22:32 68 18 95 Facial 50 Intake and Output 06/15/17 06/16/17 19:00 07:00 Intake Total 1000 ml Balance 1000 ml Intake Oral 780 ml IV Total 220 ml # Voids 5 Laboratory Tests 06/15/17 03:30: White Blood Count 8.9, Red Blood Count 6.88H, Hemoglobin 19.5*H, Hematocrit 65.2H, Mean Corpuscular Volume 95, Mean Corpuscular Hemoglobin 28.4, Mean Corpuscular Hemoglobin Concent 29.9L, Red Cell Distribution Width 19.0H, Platelet Count 136L, Mean Platelet Volume 7.1, Neutrophils (%) (Auto) 62.6, Lymphocytes (%) (Auto) 21.5, Monocytes (%) (Auto) 13.7H, Eosinophils (%) (Auto) 1.2, Basophils (%) (Auto) 1.0, Sodium Level 142, Potassium Level 3.8, Chloride Level 83L, Carbon Dioxide Level 46*H, Anion Gap 13, Blood Urea Nitrogen 24H, Creatinine 1.0H, Estimat Glomerular Filtration Rate 56.0, Glucose Level 111H, Calcium Level 9.5, Magnesium Level 1.9 Height (Feet): 5 Height (Inches): 7.00 Weight (Pounds): 200 Cardiovascular: normal rate Olu Calero MD Jun 15, 2017 20:42
--- NOTE | 2017-06-15 22:30 | Cardiology Progress Note ---
Assessment/Plan Assessment/Plan 1. Cor pulmonale with moderate to severe pulmonary HTN, requires right heart cath to assess NO reactivity as an outpatient, continue digoxin, Work up of pulmonary HTN required, including VQ scan to rule out chronic PE, ?ILD, ? connective tissue disease, ?HIV disease, etc. 2. Hypoxemia, resolved, possible obesity hypoventilation syndrome. Subjective Subjective Sinus rhythm at 72, on venturi mask. Objective Last 24 Hour Vital Signs Date Time Temp Pulse Resp B/P (MAP) Pulse Ox O2 Delivery O2 Flow Rate FiO2 06/15/17 20:16 98.1 72 18 114/65 94 Venturi Mask 50 06/15/17 20:00 74 06/15/17 19:17 97 Venturi Mask 14.0 50 06/15/17 19:17 Venturi Mask 14.0 55 06/15/17 17:36 72 20 95 06/15/17 16:35 97.5 72 20 145/84 95 Venturi Mask 06/15/17 15:47 63 06/15/17 15:10 70 20 95 06/15/17 12:56 66 20 94 06/15/17 12:15 97.6 64 20 124/77 94 Venturi Mask 06/15/17 12:00 64 06/15/17 10:46 60 20 96 06/15/17 09:30 62 20 94 06/15/17 08:31 97.8 66 20 131/78 96 Venturi Mask 06/15/17 08:00 50 06/15/17 07:10 52 19 98 Facial 50 06/15/17 07:10 Bi-pap 50 06/15/17 07:09 98 Bi-pap 50 06/15/17 05:15 56 18 97 Facial 50 06/15/17 04:00 98.0 61 18 132/83 96 Venturi Mask 50 06/15/17 04:00 59 06/15/17 04:00 50 06/15/17 02:55 56 20 95 Facial 50 06/15/17 00:44 66 20 95 Facial 50 06/15/17 00:09 68 06/15/17 00:00 64 06/15/17 00:00 98.1 77 20 110/60 95 Venturi Mask 50 06/14/17 22:32 68 18 95 Facial 50 Intake and Output 06/15/17 06/16/17 19:00 07:00 Intake Total 1010 ml 130 ml Balance 1010 ml 130 ml Intake Oral 780 ml IV Total 230 ml 130 ml # Voids 5 2D Echo: LVEF 65% RA/RV dilatation, RVSO 58 mmHg, Grade I lVDD Laboratory Tests Test 06/15/17 03:30 White Blood Count 8.9 K/UL (4.8-10.8) Red Blood Count 6.88 M/UL (4.20-5.40) H Hemoglobin 19.5 G/DL (12.0-16.0) *H Hematocrit 65.2 % (37.0-47.0) H Mean Corpuscular Volume 95 FL (80-99) Mean Corpuscular Hemoglobin 28.4 PG (27.0-31.0) Mean Corpuscular Hemoglobin Concent 29.9 G/DL (32.0-36.0) L Red Cell Distribution Width 19.0 % (11.6-14.8) H Platelet Count 136 K/UL (150-450) L Mean Platelet Volume 7.1 FL (6.5-10.1) Neutrophils (%) (Auto) 62.6 % (45.0-75.0) Lymphocytes (%) (Auto) 21.5 % (20.0-45.0) Monocytes (%) (Auto) 13.7 % (1.0-10.0) H Eosinophils (%) (Auto) 1.2 % (0.0-3.0) Basophils (%) (Auto) 1.0 % (0.0-2.0) Sodium Level 142 mEQ/L (135-145) Potassium Level 3.8 mEQ/L (3.4-4.9) Chloride Level 83 mEQ/L (98-107) L Carbon Dioxide Level 46 mEQ/L (20-30) *H Anion Gap 13 (5-15) Blood Urea Nitrogen 24 mg/dL (7-23) H Creatinine 1.0 mg/dL (0.5-0.9) H Estimat Glomerular Filtration Rate 56.0 mL/min (>60) Glucose Level 111 mg/dL (74-106) H Calcium Level 9.5 mg/dL (8.6-10.2) Magnesium Level 1.9 mg/dL (1.7-2.5) Objective HEENT: Normocephalic and atraumatic. Pupils reactive to light. Pale sclera. Unable to assess oral mucosa due to BiPAP mask. NECK: Cannot assess JVD. CARDIOVASCULAR: Regular rate and rhythm. No murmurs, gallops or rubs LUNGS: She had crackles. Diminished breathing sounds at the bases. Normal breathing effort. ABDOMEN: Soft, obese, nontender, and nondistended. Positive bowel sounds. No hepatosplenomegaly. No ascites. EXTREMITIES: No edema, clubbing or cyanosis. VIVIANE EDUARDO Jun 15, 2017 22:30
--- NOTE | 2017-06-15 23:41 | General Progress Note ---
Assessment/Plan Assessment/Plan 1. Polycythemia, likely with history of underlying chronic obstructive pulmonary disease. At this time, we will hold off on DEION 2 level. We will need to have polycythemia addressed as outpatient. --> continue to monitor counts 2. Elevated prothrombin time and normal PTT. --> vitamin k given 3. Thrombocytopenia, potentially secondary to underlying healthcare-associated pneumonia. -->She is on antibiotics. --> WBC currently WNL 4. Urinary tract infection. She is on antibiotics, ID following. 5. Congestive heart failure, needs diuresis. --> cardiology following 6. Chronic obstructive pulmonary disease history and difficulty with breathing. Subjective Date patient seen: Jun 14, 2017 ROS Limited/Unobtainable: No Constitutional: Denies: no symptoms, chills, diaphoresis, fever, malaise, weakness, other HEENT: Denies: no symptoms, eye pain, blurred vision, tearing, double vision, ear pain, ear discharge, nose pain, nose congestion, throat pain, throat swelling, mouth pain, mouth swelling, other Cardiovascular: Denies: no symptoms, chest pain, edema, irregular heart rate, lightheadedness, palpitations, syncope, other Respiratory: Denies: no symptoms, cough, orthopnea, shortness of breath, SOB with excertion, SOB at rest, sputum, stridor, wheezing, other Gastrointestinal/Abdominal: Denies: no symptoms, abdomen distended, abdominal pain, black stools, tarry stools, blood in stool, constipated, diarrhea, difficulty swallowing, nausea, poor appetite, poor fluid intake, rectal bleeding , vomiting, other Genitourinary: Denies: no symptoms, burning, discharge, frequency, flank pain, hematuria, incontinence, pain, urgency, other Neurologic/Psychiatric: Denies: no symptoms, anxiety, depressed, emotional problems, headache, numbness, paresthesia, pre-existing deficit, seizure, tingling, tremors, weakness, other Allergies: Coded Allergies: No Known Allergies (Unverified , 06/10/17) Subjective No acute distress, active bleeding, vitals are stable. Hemoglobin high Objective Last 24 Hour Vital Signs Date Time Temp Pulse Resp B/P (MAP) Pulse Ox O2 Delivery O2 Flow Rate FiO2 06/15/17 20:16 98.1 72 18 114/65 94 Venturi Mask 50 06/15/17 20:00 74 06/15/17 19:17 97 Venturi Mask 14.0 50 06/15/17 19:17 Venturi Mask 14.0 55 06/15/17 17:36 72 20 95 06/15/17 16:35 97.5 72 20 145/84 95 Venturi Mask 06/15/17 15:47 63 06/15/17 15:10 70 20 95 06/15/17 12:56 66 20 94 06/15/17 12:15 97.6 64 20 124/77 94 Venturi Mask 06/15/17 12:00 64 06/15/17 10:46 60 20 96 06/15/17 09:30 62 20 94 06/15/17 08:31 97.8 66 20 131/78 96 Venturi Mask 06/15/17 08:00 50 06/15/17 07:10 52 19 98 Facial 50 06/15/17 07:10 Bi-pap 50 06/15/17 07:09 98 Bi-pap 50 06/15/17 05:15 56 18 97 Facial 50 06/15/17 04:00 98.0 61 18 132/83 96 Venturi Mask 50 06/15/17 04:00 59 06/15/17 04:00 50 06/15/17 02:55 56 20 95 Facial 50 06/15/17 00:44 66 20 95 Facial 50 06/15/17 00:09 68 06/15/17 00:00 64 06/15/17 00:00 98.1 77 20 110/60 95 Venturi Mask 50 06/14/17 22:32 68 18 95 Facial 50 06/14/17 20:00 98.3 76 24 118/67 91 Venturi Mask 3.0 50 06/14/17 20:00 50 06/14/17 20:00 80 06/14/17 19:01 97.9 92 20 129/70 96 Nasal Cannula 2.0 06/14/17 18:44 Venturi Mask 14.0 55 06/14/17 18:44 97 Venturi Mask 14.0 50 06/14/17 16:06 97.7 59 18 143/66 96 Room Air 06/14/17 16:00 15.0 50 06/14/17 16:00 71 06/14/17 12:00 97.9 72 18 127/72 94 Nasal Cannula 06/14/17 12:00 69 06/14/17 12:00 15.0 50 06/14/17 09:37 57 18 95 Facial 50 06/14/17 08:02 97.3 67 20 130/66 97 Bi-pap 06/14/17 08:00 57 06/14/17 08:00 50 06/14/17 07:20 97 Bi-pap 50 06/14/17 07:20 Bi-pap 50 06/14/17 07:16 61 18 97 Facial 50 06/14/17 05:09 66 18 91 Facial 50 06/14/17 04:00 50 06/14/17 04:00 56 06/14/17 04:00 97.0 55 20 117/68 97 Venturi Mask 14.0 50 06/14/17 00:54 97.7 73 20 124/73 98 Venturi Mask 06/14/17 00:48 66 18 94 Facial 50 06/14/17 00:00 97.7 73 20 124/73 98 Bi-pap 50 06/14/17 00:00 50 06/14/17 00:00 71 Last 24 Hour Vital Signs Date Time Temp Pulse Resp B/P (MAP) Pulse Ox O2 Delivery O2 Flow Rate FiO2 06/15/17 20:16 98.1 72 18 114/65 94 Venturi Mask 50 06/15/17 20:00 74 06/15/17 19:17 97 Venturi Mask 14.0 50 06/15/17 19:17 Venturi Mask 14.0 55 06/15/17 17:36 72 20 95 06/15/17 16:35 97.5 72 20 145/84 95 Venturi Mask 06/15/17 15:47 63 06/15/17 15:10 70 20 95 06/15/17 12:56 66 20 94 06/15/17 12:15 97.6 64 20 124/77 94 Venturi Mask 06/15/17 12:00 64 06/15/17 10:46 60 20 96 06/15/17 09:30 62 20 94 06/15/17 08:31 97.8 66 20 131/78 96 Venturi Mask 06/15/17 08:00 50 06/15/17 07:10 52 19 98 Facial 50 06/15/17 07:10 Bi-pap 50 06/15/17 07:09 98 Bi-pap 50 06/15/17 05:15 56 18 97 Facial 50 06/15/17 04:00 98.0 61 18 132/83 96 Venturi Mask 50 06/15/17 04:00 59 06/15/17 04:00 50 06/15/17 02:55 56 20 95 Facial 50 06/15/17 00:44 66 20 95 Facial 50 06/15/17 00:09 68 06/15/17 00:00 64 06/15/17 00:00 98.1 77 20 110/60 95 Venturi Mask 50 Intake and Output 06/15/17 06/16/17 19:00 07:00 Intake Total 1010 ml 130 ml Balance 1010 ml 130 ml Intake Oral 780 ml IV Total 230 ml 130 ml # Voids 5 Labs Test 06/14/17 03:20 06/15/17 03:30 White Blood Count 8.0 K/UL (4.8-10.8) 8.9 K/UL (4.8-10.8) Red Blood Count 6.38 M/UL (4.20-5.40) 6.88 M/UL (4.20-5.40) Hemoglobin 18.8 G/DL (12.0-16.0) 19.5 G/DL (12.0-16.0) Hematocrit 60.8 % (37.0-47.0) 65.2 % (37.0-47.0) Mean Corpuscular Volume 95 FL (80-99) 95 FL (80-99) Mean Corpuscular Hemoglobin 29.5 PG (27.0-31.0) 28.4 PG (27.0-31.0) Mean Corpuscular Hemoglobin Concent 30.9 G/DL (32.0-36.0) 29.9 G/DL (32.0-36.0) Red Cell Distribution Width 19.1 % (11.6-14.8) 19.0 % (11.6-14.8) Platelet Count 141 K/UL (150-450) 136 K/UL (150-450) Mean Platelet Volume 8.3 FL (6.5-10.1) 7.1 FL (6.5-10.1) Neutrophils (%) (Auto) 66.7 % (45.0-75.0) 62.6 % (45.0-75.0) Lymphocytes (%) (Auto) 19.8 % (20.0-45.0) 21.5 % (20.0-45.0) Monocytes (%) (Auto) 12.5 % (1.0-10.0) 13.7 % (1.0-10.0) Eosinophils (%) (Auto) 0.5 % (0.0-3.0) 1.2 % (0.0-3.0) Basophils (%) (Auto) 0.5 % (0.0-2.0) 1.0 % (0.0-2.0) Sodium Level 139 mEQ/L (135-145) 142 mEQ/L (135-145) Potassium Level 3.0 mEQ/L (3.4-4.9) 3.8 mEQ/L (3.4-4.9) Chloride Level 80 mEQ/L (98-107) 83 mEQ/L (98-107) Carbon Dioxide Level 48 mEQ/L (20-30) 46 mEQ/L (20-30) Anion Gap 11 (5-15) 13 (5-15) Blood Urea Nitrogen 17 mg/dL (7-23) 24 mg/dL (7-23) Creatinine 0.9 mg/dL (0.5-0.9) 1.0 mg/dL (0.5-0.9) Estimat Glomerular Filtration Rate > 60 mL/min (>60) 56.0 mL/min (>60) Glucose Level 75 mg/dL (74-106) 111 mg/dL (74-106) Calcium Level 9.6 mg/dL (8.6-10.2) 9.5 mg/dL (8.6-10.2) Magnesium Level 1.4 mg/dL (1.7-2.5) 1.9 mg/dL (1.7-2.5) Total Bilirubin 1.6 mg/dL (0.0-1.2) Direct Bilirubin 0.4 mg/dL (0.1-0.3) Aspartate Amino Transf (AST/SGOT) 21 U/L (5-40) Alanine Aminotransferase (ALT/SGPT) 22 U/L (3-33) Alkaline Phosphatase 64 U/L (35-104) Pro-B-Type Natriuretic Peptide 1438 pg/mL (0-125) Total Protein 7.3 g/dL (6.6-8.7) Albumin 3.8 g/dL (3.5-5.2) Globulin 3.5 g/dL Albumin/Globulin Ratio 1.0 (1.0-2.7) HIV (1&2) Antibody Rapid Negative (NEGATIVE) Laboratory Tests 06/15/17 03:30: White Blood Count 8.9, Red Blood Count 6.88H, Hemoglobin 19.5*H, Hematocrit 65.2H, Mean Corpuscular Volume 95, Mean Corpuscular Hemoglobin 28.4, Mean Corpuscular Hemoglobin Concent 29.9L, Red Cell Distribution Width 19.0H, Platelet Count 136L, Mean Platelet Volume 7.1, Neutrophils (%) (Auto) 62.6, Lymphocytes (%) (Auto) 21.5, Monocytes (%) (Auto) 13.7H, Eosinophils (%) (Auto) 1.2, Basophils (%) (Auto) 1.0, Sodium Level 142, Potassium Level 3.8, Chloride Level 83L, Carbon Dioxide Level 46*H, Anion Gap 13, Blood Urea Nitrogen 24H, Creatinine 1.0H, Estimat Glomerular Filtration Rate 56.0, Glucose Level 111H, Calcium Level 9.5, Magnesium Level 1.9 Height (Feet): 5 Height (Inches): 7.00 Weight (Pounds): 200 General Appearance: no apparent distress Neck: normal inspection Cardiovascular: normal rate Neurologic: screen cutter and trimmer II-XII grossly normal Skin: warm/dry LESLEY MOHAMUD Jun 15, 2017 23:41
--- NOTE | 2017-06-15 23:42 | General Progress Note ---
Assessment/Plan Assessment/Plan 1. Polycythemia, likely with history of underlying chronic obstructive pulmonary disease. At this time, we will hold off on DEION 2 level. We will need to have polycythemia addressed as outpatient. --> continue to monitor counts 2. Elevated prothrombin time and normal PTT. --> vitamin k given 3. Thrombocytopenia, potentially secondary to underlying healthcare-associated pneumonia. -->She is on antibiotics. --> WBC currently WNL 4. Urinary tract infection. She is on antibiotics, ID following. 5. Congestive heart failure, needs diuresis. --> cardiology following 6. Chronic obstructive pulmonary disease history and difficulty with breathing. 7. Elevated hemoglobin and hematocrit Subjective Date patient seen: Jun 15, 2017 ROS Limited/Unobtainable: No Constitutional: Denies: no symptoms, chills, diaphoresis, fever, malaise, weakness, other HEENT: Denies: no symptoms, eye pain, blurred vision, tearing, double vision, ear pain, ear discharge, nose pain, nose congestion, throat pain, throat swelling, mouth pain, mouth swelling, other Cardiovascular: Denies: no symptoms, chest pain, edema, irregular heart rate, lightheadedness, palpitations, syncope, other Respiratory: Denies: no symptoms, cough, orthopnea, shortness of breath, SOB with excertion, SOB at rest, sputum, stridor, wheezing, other Gastrointestinal/Abdominal: Denies: no symptoms, abdomen distended, abdominal pain, black stools, tarry stools, blood in stool, constipated, diarrhea, difficulty swallowing, nausea, poor appetite, poor fluid intake, rectal bleeding , vomiting, other Genitourinary: Denies: no symptoms, burning, discharge, frequency, flank pain, hematuria, incontinence, pain, urgency, other Neurologic/Psychiatric: Denies: no symptoms, anxiety, depressed, emotional problems, headache, numbness, paresthesia, pre-existing deficit, seizure, tingling, tremors, weakness, other Allergies: Coded Allergies: No Known Allergies (Unverified , 06/10/17) Subjective No acute distress, active bleeding, vitals are stable. Hemoglobin and hematocrit remains elevated. Objective Last 24 Hour Vital Signs Date Time Temp Pulse Resp B/P (MAP) Pulse Ox O2 Delivery O2 Flow Rate FiO2 06/15/17 20:16 98.1 72 18 114/65 94 Venturi Mask 50 8/27/17 20:00 74 06/15/17 19:17 97 Venturi Mask 14.0 50 06/15/17 19:17 Venturi Mask 14.0 55 06/15/17 17:36 72 20 95 06/15/17 16:35 97.5 72 20 145/84 95 Venturi Mask 06/15/17 15:47 63 06/15/17 15:10 70 20 95 06/15/17 12:56 66 20 94 06/15/17 12:15 97.6 64 20 124/77 94 Venturi Mask 06/15/17 12:00 64 06/15/17 10:46 60 20 96 06/15/17 09:30 62 20 94 06/15/17 08:31 97.8 66 20 131/78 96 Venturi Mask 06/15/17 08:00 50 06/15/17 07:10 52 19 98 Facial 50 06/15/17 07:10 Bi-pap 50 06/15/17 07:09 98 Bi-pap 50 06/15/17 05:15 56 18 97 Facial 50 06/15/17 04:00 98.0 61 18 132/83 96 Venturi Mask 50 06/15/17 04:00 59 06/15/17 04:00 50 06/15/17 02:55 56 20 95 Facial 50 06/15/17 00:44 66 20 95 Facial 50 06/15/17 00:09 68 06/15/17 00:00 64 06/15/17 00:00 98.1 77 20 110/60 95 Venturi Mask 50 Intake and Output 06/15/17 06/16/17 19:00 07:00 Intake Total 1010 ml 130 ml Balance 1010 ml 130 ml Intake Oral 780 ml IV Total 230 ml 130 ml # Voids 5 Laboratory Tests 06/15/17 03:30: White Blood Count 8.9, Red Blood Count 6.88H, Hemoglobin 19.5*H, Hematocrit 65.2H, Mean Corpuscular Volume 95, Mean Corpuscular Hemoglobin 28.4, Mean Corpuscular Hemoglobin Concent 29.9L, Red Cell Distribution Width 19.0H, Platelet Count 136L, Mean Platelet Volume 7.1, Neutrophils (%) (Auto) 62.6, Lymphocytes (%) (Auto) 21.5, Monocytes (%) (Auto) 13.7H, Eosinophils (%) (Auto) 1.2, Basophils (%) (Auto) 1.0, Sodium Level 142, Potassium Level 3.8, Chloride Level 83L, Carbon Dioxide Level 46*H, Anion Gap 13, Blood Urea Nitrogen 24H, Creatinine 1.0H, Estimat Glomerular Filtration Rate 56.0, Glucose Level 111H, Calcium Level 9.5, Magnesium Level 1.9 Height (Feet): 5 Height (Inches): 7.00 Weight (Pounds): 200 LESLEY MOHAMUD Jun 15, 2017 23:42
[2017-06-16] VITALS (7 sets, daily range): BP systolic 100–129; BP diastolic 63–82
[2017-06-16] MEDS: Vancomycin 500mg in D5W 110ml IVPB SCH ×2 (04:09→16:33)
[2017-06-16 05:15] LABS: BASOPHILS % (AUTO) 0.4 % (0.0-2.0); EOSINOPHILS % (AUTO) 1.8 % (0.0-3.0); MEAN CORPUSCULAR HEMOGLOBIN 28.8 PG (27.0-31.0); MEAN CORPUSCULAR HGB CONC 30.2 G/DL (32.0-36.0); MEAN CORPUSCULAR VOLUME 95 FL (80-99); MEAN PLATELET VOLUME 7.1 FL (6.5-10.1); MONOCYTES % (AUTO) 12.1 % (1.0-10.0); NEUTROPHILS % (AUTO) 62.7 % (45.0-75.0); PLATELET COUNT 125 K/UL (150-450); RED BLOOD COUNT 6.87 M/UL (4.20-5.40); RED CELL DISTRIBUTION WIDTH 19.3 % (11.6-14.8); WHITE BLOOD COUNT 7.6 K/UL (4.8-10.8)
[2017-06-16 05:31] LABS: CALCIUM 10.1 mg/dL (8.6-10.2); POTASSIUM 3.8 mEQ/L (3.4-4.9)
[2017-06-16] MEDS: Aspirin Baby 81mg ORAL SCH (09:34)
[2017-06-16] MEDS: Docusate 100mg cap ORAL SCH ×3 (09:34→18:24)
[2017-06-16] MEDS: Revatio 20mg tab ORAL SCH ×3 (09:34→18:24)
[2017-06-16] MEDS: LaMICtal 150mg tab ORAL SCH (09:34)
--- NOTE | 2017-06-16 11:30 | General Progress Note ---
Assessment/Plan Status: unchanged Assessment/Plan - Cr 1.4 now down to 1.0 - COPD , Polycythemia - HCAP (healthcare-associated pneumonia) - Urinary tract infection - Sepsis - Congestive heart failure K and mag supplement as needed. Trial Diamox Monitor lytes and renal parameters avoid nephrotoxics optimize pulm and cardiac status Subjective Allergies: Coded Allergies: No Known Allergies (Unverified , 06/10/17) Objective Last 24 Hour Vital Signs Date Time Temp Pulse Resp B/P (MAP) Pulse Ox O2 Delivery O2 Flow Rate FiO2 06/16/17 10:33 60 18 96 Facial 50 06/16/17 09:30 50 06/16/17 08:09 68 06/16/17 08:00 97.0 80 21 129/82 99 06/16/17 07:43 95 Venturi Mask 14.0 55 06/16/17 07:43 Venturi Mask 14.0 55 06/16/17 04:00 61 06/16/17 04:00 97.9 66 20 110/63 94 Venturi Mask 50 06/16/17 00:00 70 06/16/17 00:00 97.7 67 19 100/65 95 Venturi Mask 50 06/15/17 20:16 98.1 72 18 114/65 94 Venturi Mask 50 06/15/17 20:00 74 06/15/17 19:17 97 Venturi Mask 14.0 50 06/15/17 19:17 Venturi Mask 14.0 55 06/15/17 17:36 72 20 95 06/15/17 16:35 97.5 72 20 145/84 95 Venturi Mask 06/15/17 15:47 63 06/15/17 15:10 70 20 95 06/15/17 12:56 66 20 94 06/15/17 12:15 97.6 64 20 124/77 94 Venturi Mask 06/15/17 12:00 64 Intake and Output 06/16/17 06/17/17 19:00 07:00 Intake Total 390 ml Balance 390 ml Intake Oral 360 ml IV Total 30 ml Laboratory Tests 06/16/17 03:40: White Blood Count 7.6, Red Blood Count 6.87H, Hemoglobin 19.8*H, Hematocrit 65.4H, Mean Corpuscular Volume 95, Mean Corpuscular Hemoglobin 28.8, Mean Corpuscular Hemoglobin Concent 30.2L, Red Cell Distribution Width 19.3H, Platelet Count 125L, Mean Platelet Volume 7.1, Neutrophils (%) (Auto) 62.7, Lymphocytes (%) (Auto) 23.0, Monocytes (%) (Auto) 12.1H, Eosinophils (%) (Auto) 1.8, Basophils (%) (Auto) 0.4, Sodium Level 140, Potassium Level 3.8, Chloride Level 85L, Carbon Dioxide Level 44*H, Anion Gap 11, Blood Urea Nitrogen 27H, Creatinine 1.0H, Estimat Glomerular Filtration Rate 56.0, Glucose Level 97, Calcium Level 10.1 Height (Feet): 5 Height (Inches): 7.00 Weight (Pounds): 174 General Appearance: no apparent distress EENT: other - bipap Cardiovascular: normal rate Respiratory/Chest: decreased breath sounds Abdomen: soft Objective no change in PE JENNIFER OVALLE Jun 16, 2017 11:30
[2017-06-16] MEDS ORDERED: Morphine Sulfate 2mg/ml Inj IVP PRN (12:00)
[2017-06-16] MEDS ORDERED: LORazepam Inj 2mg/ml 1ml IV PRN (12:00)
--- NOTE | 2017-06-16 12:02 | Pulmonology Progress Note ---
Assessment/Plan Problems: (1) Acute respiratory failure (2) COPD (chronic obstructive pulmonary disease) (3) Congestive heart failure (4) Sepsis Assessment/Plan pt diuresed 19 liters [place]far Hem is rising as a sign of hemoconcentration BNP decreasing check electrolytes pt/ot check abg Subjective ROS Limited/Unobtainable: No Constitutional: Reports: no symptoms HEENT: Repors: no symptoms Respiratory: Reports: no symptoms Cardiovascular: Reports: no symptoms Gastrointestinal/Abdominal: Reports: no symptoms Allergies: Coded Allergies: No Known Allergies (Unverified , 06/10/17) Objective Last 24 Hour Vital Signs Date Time Temp Pulse Resp B/P (MAP) Pulse Ox O2 Delivery O2 Flow Rate FiO2 06/16/17 10:33 60 18 96 Facial 50 06/16/17 09:30 50 06/16/17 08:09 68 06/16/17 08:00 97.0 80 21 129/82 99 06/16/17 07:43 95 Venturi Mask 14.0 55 06/16/17 07:43 Venturi Mask 14.0 55 06/16/17 04:00 61 06/16/17 04:00 97.9 66 20 110/63 94 Venturi Mask 50 06/16/17 00:00 70 06/16/17 00:00 97.7 67 19 100/65 95 Venturi Mask 50 06/15/17 20:16 98.1 72 18 114/65 94 Venturi Mask 50 06/15/17 20:00 74 06/15/17 19:17 97 Venturi Mask 14.0 50 06/15/17 19:17 Venturi Mask 14.0 55 06/15/17 17:36 72 20 95 06/15/17 16:35 97.5 72 20 145/84 95 Venturi Mask 06/15/17 15:47 63 06/15/17 15:10 70 20 95 06/15/17 12:56 66 20 94 06/15/17 12:15 97.6 64 20 124/77 94 Venturi Mask 06/15/17 12:00 64 Intake and Output 06/16/17 06/17/17 19:00 07:00 Intake Total 400 ml Balance 400 ml Intake Oral 360 ml IV Total 40 ml Objective off bipap, tolerating well HEENT: normocephalic, atraumatic, mucous membranes moist Respiratory/Chest: chest wall non-tender, lungs clear Breasts: no masses Cardiovascular: normal peripheral pulses, regular rhythm Abdomen: soft, non tender, no organomegaly Genitourinary: normal external genitalia Extremities: no clubbing Skin: no rash, no lesions Laboratory Tests 06/16/17 03:40: White Blood Count 7.6, Red Blood Count 6.87H, Hemoglobin 19.8*H, Hematocrit 65.4H, Mean Corpuscular Volume 95, Mean Corpuscular Hemoglobin 28.8, Mean Corpuscular Hemoglobin Concent 30.2L, Red Cell Distribution Width 19.3H, Platelet Count 125L, Mean Platelet Volume 7.1, Neutrophils (%) (Auto) 62.7, Lymphocytes (%) (Auto) 23.0, Monocytes (%) (Auto) 12.1H, Eosinophils (%) (Auto) 1.8, Basophils (%) (Auto) 0.4, Sodium Level 140, Potassium Level 3.8, Chloride Level 85L, Carbon Dioxide Level 44*H, Anion Gap 11, Blood Urea Nitrogen 27H, Creatinine 1.0H, Estimat Glomerular Filtration Rate 56.0, Glucose Level 97, Calcium Level 10.1 Current Medications Medications (Trade) Dose Ordered Sig/Lloyd Route PRN Reason Start Time Stop Time Status Last Admin Dose Admin Acetazolamide (Diamox) 250 mg TWICE A DAY ORAL 06/15/17 18:00 06/18/17 09:01 06/16/17 09:33 Albuterol/ Ipratropium (DuoNeb 0.5-3(2.5)mg/3ml) 3 ml Q4HRT PRN HHN sob 06/14/17 19:00 06/19/17 18:59 Aspirin (ASA) 81 mg DAILY ORAL 06/15/17 09:00 07/15/17 08:59 06/16/17 09:34 Ceftriaxone Sodium 2 gm/ Dextrose 110 ml @ 220 mls/hr Q24H IVPB 06/13/17 20:00 06/20/17 19:59 06/15/17 20:37 Clotrimazole (Lotrimin) 1 applic EVERY 12 HOURS TOPIC 06/11/17 13:00 07/11/17 12:59 06/16/17 09:35 Docusate Sodium (Colace) 100 mg THREE TIMES A DAY ORAL 06/16/17 09:00 07/16/17 08:59 06/16/17 09:34 Lamotrigine (LaMICtal) 150 mg DAILY ORAL 06/11/17 09:00 07/11/17 08:59 06/16/17 09:34 Lorazepam (Ativan 2mg/ml 1ml) 0.5 mg ONCE ONCE IV 06/16/17 12:00 06/16/17 12:01 UNV Morphine Sulfate (Morphine Sulfate) 2 mg ONCE ONCE IVP 06/16/17 12:00 06/16/17 12:01 UNV Polyethylene Glycol (Miralax) 17 gm BEDTIME ORAL 06/15/17 21:00 07/15/17 20:59 06/15/17 20:37 Promethazine HCl/ Codeine (Phenergan with Codeine) 5 ml Q4H PRN ORAL For Cough 06/10/17 14:00 07/10/17 13:59 Sildenafil Citrate (Revatio) 20 mg THREE TIMES A DAY ORAL 06/12/17 21:30 07/12/17 21:29 06/16/17 09:34 Trazodone HCl (Desyrel) 150 mg BEDTIME ORAL 06/10/17 21:00 07/10/17 20:59 06/15/17 20:37 Vancomycin HCl (Vanco rx to dose) 1 ea DAILY PRN MISC Per rx protocol 06/10/17 14:00 07/10/17 13:59 Vancomycin HCl 500 mg/Dextrose 110 ml @ 110 mls/hr Q12HR@0400,1600 IVPB 06/14/17 04:00 06/19/17 03:59 06/16/17 04:09 MARIPOSA BLACKBURN Jun 16, 2017 12:02
--- NOTE | 2017-06-16 12:11 | General Progress Note ---
Assessment/Plan Problem List: (1) COPD (chronic obstructive pulmonary disease) ICD Codes: J44.9 - Chronic obstructive pulmonary disease, unspecified SNOMED: 21577854 (2) Congestive heart failure ICD Codes: I50.9 - Heart failure, unspecified SNOMED: 02196803 (3) Hypoxemia ICD Codes: R09.02 - Hypoxemia SNOMED: 385746745 (4) Acute respiratory failure ICD Codes: J96.00 - Acute respiratory failure, unspecified whether with hypoxia or hypercapnia SNOMED: 11314028 Status: progressing Assessment/Plan pulm edema is improving on aggressive diuresis vitals stable increasing hb ;treatment per heme/onc; i defer bone marrow biopsy to dr middleton ability to sign consent will be decided by dr jaffe bipap copd resp insuff Subjective ROS Limited/Unobtainable: Yes Constitutional: Reports: no symptoms Allergies: Coded Allergies: No Known Allergies (Unverified , 06/10/17) Objective Last 24 Hour Vital Signs Date Time Temp Pulse Resp B/P (MAP) Pulse Ox O2 Delivery O2 Flow Rate FiO2 06/16/17 12:03 97.2 65 18 116/72 95 Bi-pap 50 06/16/17 10:33 60 18 96 Facial 50 06/16/17 09:30 50 06/16/17 08:09 68 06/16/17 08:00 97.0 80 21 129/82 99 06/16/17 07:43 95 Venturi Mask 14.0 55 06/16/17 07:43 Venturi Mask 14.0 55 06/16/17 04:00 61 06/16/17 04:00 97.9 66 20 110/63 94 Venturi Mask 50 06/16/17 00:00 70 06/16/17 00:00 97.7 67 19 100/65 95 Venturi Mask 50 06/15/17 20:16 98.1 72 18 114/65 94 Venturi Mask 50 06/15/17 20:00 74 06/15/17 19:17 97 Venturi Mask 14.0 50 06/15/17 19:17 Venturi Mask 14.0 55 06/15/17 17:36 72 20 95 06/15/17 16:35 97.5 72 20 145/84 95 Venturi Mask 06/15/17 15:47 63 06/15/17 15:10 70 20 95 06/15/17 12:56 66 20 94 06/15/17 12:15 97.6 64 20 124/77 94 Venturi Mask Intake and Output 06/16/17 06/17/17 19:00 07:00 Intake Total 400 ml Balance 400 ml Intake Oral 360 ml IV Total 40 ml Laboratory Tests 06/16/17 03:40: White Blood Count 7.6, Red Blood Count 6.87H, Hemoglobin 19.8*H, Hematocrit 65.4H, Mean Corpuscular Volume 95, Mean Corpuscular Hemoglobin 28.8, Mean Corpuscular Hemoglobin Concent 30.2L, Red Cell Distribution Width 19.3H, Platelet Count 125L, Mean Platelet Volume 7.1, Neutrophils (%) (Auto) 62.7, Lymphocytes (%) (Auto) 23.0, Monocytes (%) (Auto) 12.1H, Eosinophils (%) (Auto) 1.8, Basophils (%) (Auto) 0.4, Sodium Level 140, Potassium Level 3.8, Chloride Level 85L, Carbon Dioxide Level 44*H, Anion Gap 11, Blood Urea Nitrogen 27H, Creatinine 1.0H, Estimat Glomerular Filtration Rate 56.0, Glucose Level 97, Calcium Level 10.1 Height (Feet): 5 Height (Inches): 7.00 Weight (Pounds): 174 EENT: PERRL/EOMI Neck: supple Cardiovascular: normal rate Respiratory/Chest: lungs clear Abdomen: soft Olu Calero MD Jun 16, 2017 12:11
[2017-06-16 12:19] LABS: ABG ALLEN TEST POSITIVE; ABG BASE EXCESS 20.9; ABG PCO2 103.9 mmHg (35.0-45.0)
--- NOTE | 2017-06-16 12:30 | Diagnostic Imaging Report ---
Indication: Dyspnea Comparison: 06/14/17 A single view chest radiograph was obtained. Findings: Interstitial edema and vascular prominence and cardiomegaly are again demonstrated. The findings may be slightly worse, certainly no better. Bones are osteopenic. Impression: Interstitial edema/CHF.
--- NOTE | 2017-06-16 14:08 | Cardiology Progress Note ---
Assessment/Plan Assessment/Plan 1. Cor pulmonale with moderate to severe pulmonary HTN most likely COPD, although probably require right heart cath to assess pressures and NO reactivity as an outpatient, continue digoxin, Work up of pulmonary HTN required, including VQ scan to rule out chronic PE, ?ILD, ?connective tissue disease, ?HIV disease, etc. 2. Hypoxemia, resolved, possible obesity hypoventilation syndrome. 3. COPD 4. Secondary polycythemia likely dye to hypoxia. Subjective Subjective Sinus rhythm at 78, Back on bipap mask due to hypoventilation. Objective Last 24 Hour Vital Signs Date Time Temp Pulse Resp B/P (MAP) Pulse Ox O2 Delivery O2 Flow Rate FiO2 06/16/17 12:03 97.2 65 18 116/72 95 Bi-pap 50 06/16/17 10:33 60 18 96 Facial 50 06/16/17 09:30 50 06/16/17 08:09 68 06/16/17 08:00 97.0 80 21 129/82 99 06/16/17 07:43 95 Venturi Mask 14.0 55 06/16/17 07:43 Venturi Mask 14.0 55 06/16/17 04:00 61 06/16/17 04:00 97.9 66 20 110/63 94 Venturi Mask 50 06/16/17 00:00 70 06/16/17 00:00 97.7 67 19 100/65 95 Venturi Mask 50 06/15/17 20:16 98.1 72 18 114/65 94 Venturi Mask 50 06/15/17 20:00 74 06/15/17 19:17 97 Venturi Mask 14.0 50 06/15/17 19:17 Venturi Mask 14.0 55 06/15/17 17:36 72 20 95 06/15/17 16:35 97.5 72 20 145/84 95 Venturi Mask 06/15/17 15:47 63 06/15/17 15:10 70 20 95 Intake and Output 06/16/17 06/17/17 19:00 07:00 Intake Total 400 ml Balance 400 ml Intake Oral 360 ml IV Total 40 ml 2D Echo: LVEF 65% RA/RV dilatation, RVSP 58 mmHg, Grade I lVDD Laboratory Tests Test 06/16/17 03:40 06/16/17 12:15 White Blood Count 7.6 K/UL (4.8-10.8) Red Blood Count 6.87 M/UL (4.20-5.40) H Hemoglobin 19.8 G/DL (12.0-16.0) *H Hematocrit 65.4 % (37.0-47.0) H Mean Corpuscular Volume 95 FL (80-99) Mean Corpuscular Hemoglobin 28.8 PG (27.0-31.0) Mean Corpuscular Hemoglobin Concent 30.2 G/DL (32.0-36.0) L Red Cell Distribution Width 19.3 % (11.6-14.8) H Platelet Count 125 K/UL (150-450) L Mean Platelet Volume 7.1 FL (6.5-10.1) Neutrophils (%) (Auto) 62.7 % (45.0-75.0) Lymphocytes (%) (Auto) 23.0 % (20.0-45.0) Monocytes (%) (Auto) 12.1 % (1.0-10.0) H Eosinophils (%) (Auto) 1.8 % (0.0-3.0) Basophils (%) (Auto) 0.4 % (0.0-2.0) Sodium Level 140 mEQ/L (135-145) Potassium Level 3.8 mEQ/L (3.4-4.9) Chloride Level 85 mEQ/L (98-107) L Carbon Dioxide Level 44 mEQ/L (20-30) *H Anion Gap 11 (5-15) Blood Urea Nitrogen 27 mg/dL (7-23) H Creatinine 1.0 mg/dL (0.5-0.9) H Estimat Glomerular Filtration Rate 56.0 mL/min (>60) Glucose Level 97 mg/dL (74-106) Calcium Level 10.1 mg/dL (8.6-10.2) Arterial Blood pH 7.340 (7.350-7.450) Arterial Blood Partial Pressure CO2 103.9 mmHg (35.0-45.0) *H Arterial Blood Partial Pressure O2 81.5 mmHg (75.0-100.0) Arterial Blood HCO3 55.9 mmol/L (22.0-26.0) H Arterial Blood Oxygen Saturation 95.0 % (92.0-98.0) Arterial Blood Base Excess 20.9 Perico Test Positive Objective HEENT: Normocephalic and atraumatic. Pupils reactive to light. Pale sclera. Unable to assess oral mucosa due to BiPAP mask, plethoric NECK: Cannot assess JVD, no carotid bruit CARDIOVASCULAR: Regular rate and rhythm. No murmurs, gallops or rubs LUNGS: Diminished breathing sounds both lungs ABDOMEN: Soft, obese, nontender, and nondistended. Positive bowel sounds. No hepatosplenomegaly. No ascites. EXTREMITIES: No edema, clubbing or cyanosis. VIVIANE EDUARDO Jun 16, 2017 14:08
--- NOTE | 2017-06-16 15:56 | Infectious Diseases Prog Note ---
Assessment/Plan Problems: (1) HCAP (healthcare-associated pneumonia) Assessment & Plan: with slight improvement on repeated CXR, on vancomycin and ceftriaxon , to cover for UTI too, will treat for 7 days total (2) Urinary tract infection Assessment & Plan: due to Klebsiella pneumonia, on ceftriaxon for 7 days (3) Sepsis Assessment & Plan: due to the above, blood culture grew coag negative staph from one bottle , most likely contaminant, already on vancomycin (4) Congestive heart failure Assessment & Plan: continue diuresis , follow up with cardiology Subjective Allergies: Coded Allergies: No Known Allergies (Unverified , 06/10/17) Subjective she is still on BIPAP, awake and comfortable, respond to verbal commands, afebrile Objective Vital Signs Last 24 Hour Vital Signs Date Time Temp Pulse Resp B/P (MAP) Pulse Ox O2 Delivery O2 Flow Rate FiO2 06/16/17 12:03 97.2 65 18 116/72 95 Bi-pap 50 06/16/17 12:00 66 06/16/17 10:33 60 18 96 Facial 50 06/16/17 09:30 50 06/16/17 08:09 68 06/16/17 08:00 97.0 80 21 129/82 99 06/16/17 07:43 95 Venturi Mask 14.0 55 06/16/17 07:43 Venturi Mask 14.0 55 06/16/17 04:00 61 06/16/17 04:00 97.9 66 20 110/63 94 Venturi Mask 50 06/16/17 00:00 70 06/16/17 00:00 97.7 67 19 100/65 95 Venturi Mask 50 06/15/17 20:16 98.1 72 18 114/65 94 Venturi Mask 50 06/15/17 20:00 74 06/15/17 19:17 97 Venturi Mask 14.0 50 06/15/17 19:17 Venturi Mask 14.0 55 06/15/17 17:36 72 20 95 06/15/17 16:35 97.5 72 20 145/84 95 Venturi Mask Height (Feet): 5 Height (Inches): 7.00 Weight (Pounds): 174 General Appearance: WD/WN, no acute distress HEENT: normocephalic, atraumatic, anicteric Respiratory/Chest: chest wall non-tender, lungs clear, decreased breath sounds , crackles/rales Cardiovascular: normal peripheral pulses, normal rate, regular rhythm, no gallop/murmur, no JVD Abdomen: normal bowel sounds, soft, non tender, no organomegaly Extremities: no cyanosis, no clubbing Skin: no rash, no lesions, no ulcers Laboratory Tests Test 06/16/17 03:40 06/16/17 12:15 White Blood Count 7.6 K/UL (4.8-10.8) Red Blood Count 6.87 M/UL (4.20-5.40) H Hemoglobin 19.8 G/DL (12.0-16.0) *H Hematocrit 65.4 % (37.0-47.0) H Mean Corpuscular Volume 95 FL (80-99) Mean Corpuscular Hemoglobin 28.8 PG (27.0-31.0) Mean Corpuscular Hemoglobin Concent 30.2 G/DL (32.0-36.0) L Red Cell Distribution Width 19.3 % (11.6-14.8) H Platelet Count 125 K/UL (150-450) L Mean Platelet Volume 7.1 FL (6.5-10.1) Neutrophils (%) (Auto) 62.7 % (45.0-75.0) Lymphocytes (%) (Auto) 23.0 % (20.0-45.0) Monocytes (%) (Auto) 12.1 % (1.0-10.0) H Eosinophils (%) (Auto) 1.8 % (0.0-3.0) Basophils (%) (Auto) 0.4 % (0.0-2.0) Sodium Level 140 mEQ/L (135-145) Potassium Level 3.8 mEQ/L (3.4-4.9) Chloride Level 85 mEQ/L (98-107) L Carbon Dioxide Level 44 mEQ/L (20-30) *H Anion Gap 11 (5-15) Blood Urea Nitrogen 27 mg/dL (7-23) H Creatinine 1.0 mg/dL (0.5-0.9) H Estimat Glomerular Filtration Rate 56.0 mL/min (>60) Glucose Level 97 mg/dL (74-106) Calcium Level 10.1 mg/dL (8.6-10.2) Arterial Blood pH 7.340 (7.350-7.450) Arterial Blood Partial Pressure CO2 103.9 mmHg (35.0-45.0) *H Arterial Blood Partial Pressure O2 81.5 mmHg (75.0-100.0) Arterial Blood HCO3 55.9 mmol/L (22.0-26.0) H Arterial Blood Oxygen Saturation 95.0 % (92.0-98.0) Arterial Blood Base Excess 20.9 Perico Test Positive Current Medications Medications (Trade) Dose Ordered Sig/Lloyd Route PRN Reason Start Time Stop Time Status Last Admin Dose Admin Acetazolamide (Diamox) 250 mg TWICE A DAY ORAL 06/15/17 18:00 06/18/17 09:01 06/16/17 09:33 Albuterol/ Ipratropium (DuoNeb 0.5-3(2.5)mg/3ml) 3 ml Q4HRT PRN HHN sob 06/14/17 19:00 06/19/17 18:59 Aspirin (ASA) 81 mg DAILY ORAL 06/15/17 09:00 07/15/17 08:59 06/16/17 09:34 Ceftriaxone Sodium 2 gm/ Dextrose 110 ml @ 220 mls/hr Q24H IVPB 06/13/17 20:00 06/20/17 19:59 06/15/17 20:37 Clotrimazole (Lotrimin) 1 applic EVERY 12 HOURS TOPIC 06/11/17 13:00 07/11/17 12:59 06/16/17 09:35 Docusate Sodium (Colace) 100 mg THREE TIMES A DAY ORAL 06/16/17 09:00 07/16/17 08:59 06/16/17 13:05 Lamotrigine (LaMICtal) 150 mg DAILY ORAL 06/11/17 09:00 07/11/17 08:59 06/16/17 09:34 Lorazepam (Ativan 2mg/ml 1ml) 0.5 mg ONCE PRN IV PRIOR TO BIOPSY 06/16/17 12:00 06/16/17 23:59 Morphine Sulfate (Morphine Sulfate) 2 mg ONCE PRN IVP PRIOR TO BIOPSY 06/16/17 12:00 06/16/17 23:59 Non-Formulary Medication (Non-Formulary Med) 1 ea DAILY ORAL 06/17/17 09:00 07/17/17 08:59 UNV Polyethylene Glycol (Miralax) 17 gm BEDTIME ORAL 06/15/17 21:00 07/15/17 20:59 06/15/17 20:37 Promethazine HCl/ Codeine (Phenergan with Codeine) 5 ml Q4H PRN ORAL For Cough 06/10/17 14:00 07/10/17 13:59 Sildenafil Citrate (Revatio) 20 mg THREE TIMES A DAY ORAL 06/12/17 21:30 07/12/17 21:29 06/16/17 13:05 Trazodone HCl (Desyrel) 150 mg BEDTIME ORAL 06/10/17 21:00 07/10/17 20:59 06/15/17 20:37 Vancomycin HCl (Vanco rx to dose) 1 ea DAILY PRN MISC Per rx protocol 06/10/17 14:00 07/10/17 13:59 Vancomycin HCl 500 mg/Dextrose 110 ml @ 110 mls/hr Q12HR@0400,1600 IVPB 06/14/17 04:00 06/19/17 03:59 06/16/17 04:09 Vitamin E (Vitamin E) 1,000 intlu DAILY ORAL 06/17/17 09:00 07/17/17 08:59 Aki Blankenship M.D. Jun 16, 2017 15:56
--- NOTE | 2017-06-16 16:41 | General Progress Note ---
Assessment/Plan Assessment/Plan stable, the pt lacks capacity to sign the consent form -Lamictal -trazodone Subjective Constitutional: Reports: weakness Neurologic/Psychiatric: Reports: anxiety, depressed, emotional problems Allergies: Coded Allergies: No Known Allergies (Unverified , 06/10/17) Subjective The pt is stable on current meds. the pt is confused was not able to process, communicate, appreciate nor understand the risks vs benefits of bm biopsy. the pt was also disoriented Objective Last 24 Hour Vital Signs Date Time Temp Pulse Resp B/P (MAP) Pulse Ox O2 Delivery O2 Flow Rate FiO2 06/16/17 12:03 97.2 65 18 116/72 95 Bi-pap 50 06/16/17 12:00 66 06/16/17 10:33 60 18 96 Facial 50 06/16/17 09:30 50 06/16/17 08:09 68 06/16/17 08:00 97.0 80 21 129/82 99 06/16/17 07:43 95 Venturi Mask 14.0 55 06/16/17 07:43 Venturi Mask 14.0 55 06/16/17 04:00 61 06/16/17 04:00 97.9 66 20 110/63 94 Venturi Mask 50 06/16/17 00:00 70 06/16/17 00:00 97.7 67 19 100/65 95 Venturi Mask 50 06/15/17 20:16 98.1 72 18 114/65 94 Venturi Mask 50 06/15/17 20:00 74 06/15/17 19:17 97 Venturi Mask 14.0 50 06/15/17 19:17 Venturi Mask 14.0 55 06/15/17 17:36 72 20 95 06/15/17 16:35 97.5 72 20 145/84 95 Venturi Mask Intake and Output 06/16/17 06/17/17 19:00 07:00 Intake Total 400 ml Balance 400 ml Intake Oral 360 ml IV Total 40 ml Laboratory Tests 06/16/17 03:40: White Blood Count 7.6, Red Blood Count 6.87H, Hemoglobin 19.8*H, Hematocrit 65.4H, Mean Corpuscular Volume 95, Mean Corpuscular Hemoglobin 28.8, Mean Corpuscular Hemoglobin Concent 30.2L, Red Cell Distribution Width 19.3H, Platelet Count 125L, Mean Platelet Volume 7.1, Neutrophils (%) (Auto) 62.7, Lymphocytes (%) (Auto) 23.0, Monocytes (%) (Auto) 12.1H, Eosinophils (%) (Auto) 1.8, Basophils (%) (Auto) 0.4, Sodium Level 140, Potassium Level 3.8, Chloride Level 85L, Carbon Dioxide Level 44*H, Anion Gap 11, Blood Urea Nitrogen 27H, Creatinine 1.0H, Estimat Glomerular Filtration Rate 56.0, Glucose Level 97, Calcium Level 10.1 06/16/17 12:15: Arterial Blood pH 7.340L, Arterial Blood Partial Pressure CO2 103.9*H, Arterial Blood Partial Pressure O2 81.5, Arterial Blood HCO3 55.9H, Arterial Blood Oxygen Saturation 95.0, Arterial Blood Base Excess 20.9, Perico Test Positive Height (Feet): 5 Height (Inches): 7.00 Weight (Pounds): 174 General Appearance: no apparent distress, alert, overweight Neurologic: alert, oriented x 3, responsive, disoriented - didn't know the month or date, depressed affect Don Parekh M.D. Jun 16, 2017 16:41
--- NOTE | 2017-06-16 19:41 | General Progress Note ---
Assessment/Plan Status: unchanged Assessment/Plan 1. Polycythemia, likely with history of underlying chronic obstructive pulmonary disease. --> At this time, we will hold off on DEION 2 level. --> We will need to have polycythemia addressed as outpatient. --> continue to monitor counts 2. Elevated prothrombin time and normal PTT. --> vitamin k given 3. Thrombocytopenia, potentially secondary to underlying healthcare-associated pneumonia. -->She is on antibiotics. --> WBC currently WNL 4. Urinary tract infection. --> She is on antibiotics, ID following. 5. Congestive heart failure, needs diuresis. --> cardiology following 6. Chronic obstructive pulmonary disease history and difficulty with breathing. 7. Elevated hemoglobin and hematocrit --> Monitor counts Subjective Date patient seen: Jun 16, 2017 ROS Limited/Unobtainable: Yes Constitutional: Reports: weakness Neurologic/Psychiatric: Reports: anxiety, depressed Hematologic/Lymphatic: Reports: other - High hemoglobin and hematocrit Allergies: Coded Allergies: No Known Allergies (Unverified , 06/10/17) Subjective No acute distress, active bleeding, vitals are stable. Hemoglobin and hematocrit remains elevated. Objective Last 24 Hour Vital Signs Date Time Temp Pulse Resp B/P (MAP) Pulse Ox O2 Delivery O2 Flow Rate FiO2 06/16/17 19:25 98.1 68 20 122/78 95 Mechanical Ventilator 06/16/17 17:50 74 18 94 Venturi Mask 14.0 55 06/16/17 17:45 74 18 94 Venturi Mask 14.0 55 06/16/17 16:00 98.2 69 19 123/76 95 Venturi Mask 55 06/16/17 15:47 65 06/16/17 12:03 97.2 65 18 116/72 95 Bi-pap 50 06/16/17 12:00 66 06/16/17 10:33 60 18 96 Facial 50 06/16/17 09:30 50 06/16/17 08:09 68 06/16/17 08:00 97.0 80 21 129/82 99 06/16/17 07:43 95 Venturi Mask 14.0 55 06/16/17 07:43 Venturi Mask 14.0 55 06/16/17 04:00 61 06/16/17 04:00 97.9 66 20 110/63 94 Venturi Mask 50 06/16/17 00:00 70 06/16/17 00:00 97.7 67 19 100/65 95 Venturi Mask 50 06/15/17 20:16 98.1 72 18 114/65 94 Venturi Mask 50 06/15/17 20:00 74 Intake and Output 06/16/17 06/17/17 19:00 07:00 Intake Total 510 ml Output Total 550 ml Balance -40 ml Intake Oral 360 ml IV Total 150 ml Output Urine Total 550 ml # Voids 1 Laboratory Tests 06/16/17 03:40: White Blood Count 7.6, Red Blood Count 6.87H, Hemoglobin 19.8*H, Hematocrit 65.4H, Mean Corpuscular Volume 95, Mean Corpuscular Hemoglobin 28.8, Mean Corpuscular Hemoglobin Concent 30.2L, Red Cell Distribution Width 19.3H, Platelet Count 125L, Mean Platelet Volume 7.1, Neutrophils (%) (Auto) 62.7, Lymphocytes (%) (Auto) 23.0, Monocytes (%) (Auto) 12.1H, Eosinophils (%) (Auto) 1.8, Basophils (%) (Auto) 0.4, Sodium Level 140, Potassium Level 3.8, Chloride Level 85L, Carbon Dioxide Level 44*H, Anion Gap 11, Blood Urea Nitrogen 27H, Creatinine 1.0H, Estimat Glomerular Filtration Rate 56.0, Glucose Level 97, Calcium Level 10.1 06/16/17 12:15: Arterial Blood pH 7.340L, Arterial Blood Partial Pressure CO2 103.9*H, Arterial Blood Partial Pressure O2 81.5, Arterial Blood HCO3 55.9H, Arterial Blood Oxygen Saturation 95.0, Arterial Blood Base Excess 20.9, Perico Test Positive Height (Feet): 5 Height (Inches): 7.00 Weight (Pounds): 174 LESLEY MOHAUMD Jun 16, 2017 19:41
[2017-06-16] MEDS: cefTRIAXone 2 GM in D5W 110 ML IVPB SCH (20:55)
[2017-06-16] MEDS: TraZODone 100mg tab ORAL SCH (21:24)
[2017-06-16] MEDS: Miralax 17gm pkt ORAL SCH (21:25)
[2017-06-17 03:53] VITALS: BP 124/65
[2017-06-17] MEDS: Vancomycin 500mg in D5W 110ml IVPB SCH (03:59)
[2017-06-17 05:31] LABS: BASOPHILS % (AUTO) 0.9 % (0.0-2.0); EOSINOPHILS % (AUTO) 1.9 % (0.0-3.0); LYMPHOCYTES % (AUTO) 21.5 % (20.0-45.0); MEAN CORPUSCULAR HEMOGLOBIN 28.7 PG (27.0-31.0); MEAN CORPUSCULAR HGB CONC 29.9 G/DL (32.0-36.0); MEAN CORPUSCULAR VOLUME 96 FL (80-99); MEAN PLATELET VOLUME 6.9 FL (6.5-10.1); MONOCYTES % (AUTO) 11.7 % (1.0-10.0); NEUTROPHILS % (AUTO) 64.1 % (45.0-75.0); PLATELET COUNT 121 K/UL (150-450); RED BLOOD COUNT 6.75 M/UL (4.20-5.40); RED CELL DISTRIBUTION WIDTH 19.2 % (11.6-14.8)
[2017-06-17 07:46] LABS: CALCIUM 10.6 mg/dL (8.6-10.2); PHOSPHORUS 3.6 mg/dL (2.5-4.8); POTASSIUM 3.4 mEQ/L (3.4-4.9); TOTAL PROTEIN 7.8 g/dL (6.6-8.7)
[2017-06-17 08:00] VITALS: BP 125/76
[2017-06-17 08:01] LABS: BILIRUBIN,DIRECT 0.3 mg/dL (0.1-0.3)
[2017-06-17] MEDS: Docusate 100mg cap ORAL SCH ×3 (09:17→17:40)
[2017-06-17] MEDS: Aspirin Baby 81mg ORAL SCH (09:17)
[2017-06-17] MEDS: Revatio 20mg tab ORAL SCH ×3 (09:18→17:40)
[2017-06-17] MEDS: VITAMIN E 1000 UNIT ORAL SCH (09:18)
[2017-06-17] MEDS: LaMICtal 150mg tab ORAL SCH (09:18)
[2017-06-17 09:48] LABS: ABG ALLEN TEST POSITIVE; ABG BASE EXCESS 19.4; ABG PCO2 123.6 mmHg (35.0-45.0)
--- NOTE | 2017-06-17 09:50 | General Progress Note ---
Assessment/Plan Status: unchanged - from renal stand point Status Narrative CO2 lowering Assessment/Plan - Cr 1.4 now down to 1.0 - COPD , Polycythemia - HCAP (healthcare-associated pneumonia) - Urinary tract infection - Sepsis - Congestive heart failure K and mag supplement as needed. Trial Diamox Monitor lytes and renal parameters avoid nephrotoxics optimize pulm and cardiac status Subjective ROS Limited/Unobtainable: No Constitutional: Reports: malaise, weakness Allergies: Coded Allergies: No Known Allergies (Unverified , 06/10/17) Objective Last 24 Hour Vital Signs Date Time Temp Pulse Resp B/P (MAP) Pulse Ox O2 Delivery O2 Flow Rate FiO2 06/17/17 08:00 73 06/17/17 08:00 97.7 71 18 125/76 94 Nasal Cannula 3.0 06/17/17 08:00 3.0 06/17/17 06:40 Nasal Cannula 3.0 06/17/17 06:40 96 Nasal Cannula 3.0 06/17/17 05:50 63 21 98 Facial 50 06/17/17 04:09 64 06/17/17 04:00 50 06/17/17 03:53 98.2 68 20 124/65 96 Mechanical Ventilator 06/17/17 03:16 69 18 98 Facial 50 06/17/17 00:35 Bi-pap 50 06/17/17 00:34 97 Bi-pap 50 06/17/17 00:33 67 19 97 Facial 50 06/16/17 23:47 63 06/16/17 23:46 98.2 62 21 128/71 96 Mechanical Ventilator 06/16/17 20:00 65 06/16/17 19:25 98.1 68 20 122/78 95 Mechanical Ventilator 06/16/17 17:50 74 18 94 Venturi Mask 14.0 55 06/16/17 17:45 74 18 94 Venturi Mask 14.0 55 06/16/17 16:00 98.2 69 19 123/76 95 Venturi Mask 55 06/16/17 15:47 65 06/16/17 12:03 97.2 65 18 116/72 95 Bi-pap 50 06/16/17 12:00 66 06/16/17 10:33 60 18 96 Facial 50 06/16/17 09:30 50 Laboratory Tests 06/16/17 12:15: Arterial Blood pH 7.340L, Arterial Blood Partial Pressure CO2 103.9*H, Arterial Blood Partial Pressure O2 81.5, Arterial Blood HCO3 55.9H, Arterial Blood Oxygen Saturation 95.0, Arterial Blood Base Excess 20.9, Perico Test Positive 06/17/17 03:30: White Blood Count 7.0, Red Blood Count 6.75H, Hemoglobin 19.4*H, Hematocrit 64.8H, Mean Corpuscular Volume 96, Mean Corpuscular Hemoglobin 28.7, Mean Corpuscular Hemoglobin Concent 29.9L, Red Cell Distribution Width 19.2H, Platelet Count 121L, Mean Platelet Volume 6.9, Neutrophils (%) (Auto) 64.1, Lymphocytes (%) (Auto) 21.5, Monocytes (%) (Auto) 11.7H, Eosinophils (%) (Auto) 1.9, Basophils (%) (Auto) 0.9, Sodium Level 135, Potassium Level 3.4, Chloride Level 84L, Carbon Dioxide Level 36H, Anion Gap 15, Blood Urea Nitrogen 28H, Creatinine 1.0H, Estimat Glomerular Filtration Rate 56.0, Glucose Level 99, Calcium Level 10.6H, Phosphorus Level 3.6, Magnesium Level 2.0, Total Bilirubin 1.3H, Direct Bilirubin 0.3, Aspartate Amino Transf (AST/SGOT) 32, Alanine Aminotransferase (ALT/SGPT) 32, Alkaline Phosphatase 77, Total Protein 7.8, Albumin 3.9, Globulin 3.9, Albumin/Globulin Ratio 1.0 Height (Feet): 5 Height (Inches): 7.00 Weight (Pounds): 171 Cardiovascular: normal rate Respiratory/Chest: decreased breath sounds Abdomen: soft Objective no change in PE JENNIFER OVALLE Jun 17, 2017 09:50
[2017-06-17 12:00] VITALS: BP 127/77
--- NOTE | 2017-06-17 12:11 | Pulmonology Progress Note ---
Assessment/Plan Problems: (1) Acute respiratory failure (2) COPD (chronic obstructive pulmonary disease) (3) Congestive heart failure (4) Sepsis Assessment/Plan pt diuresed 20 liters sofar Hem is rising as a sign of hemoconcentration BNP decreasing check electrolytes still hypoxemic will get CT angio of chest to evaluate for PE and have a better look at lung structure. Subjective ROS Limited/Unobtainable: No Constitutional: Reports: no symptoms HEENT: Repors: no symptoms Respiratory: Reports: no symptoms Allergies: Coded Allergies: No Known Allergies (Unverified , 06/10/17) Objective Last 24 Hour Vital Signs Date Time Temp Pulse Resp B/P (MAP) Pulse Ox O2 Delivery O2 Flow Rate FiO2 06/17/17 09:48 64 18 96 Facial 50 06/17/17 08:00 73 06/17/17 08:00 97.7 71 18 125/76 94 Nasal Cannula 3.0 06/17/17 08:00 3.0 06/17/17 06:40 Nasal Cannula 3.0 06/17/17 06:40 96 Nasal Cannula 3.0 06/17/17 05:50 63 21 98 Facial 50 06/17/17 04:09 64 06/17/17 04:00 50 06/17/17 03:53 98.2 68 20 124/65 96 Mechanical Ventilator 06/17/17 03:16 69 18 98 Facial 50 06/17/17 00:35 Bi-pap 50 06/17/17 00:34 97 Bi-pap 50 06/17/17 00:33 67 19 97 Facial 50 06/16/17 23:47 63 06/16/17 23:46 98.2 62 21 128/71 96 Mechanical Ventilator 06/16/17 20:00 65 06/16/17 19:25 98.1 68 20 122/78 95 Mechanical Ventilator 06/16/17 17:50 74 18 94 Venturi Mask 14.0 55 06/16/17 17:45 74 18 94 Venturi Mask 14.0 55 06/16/17 16:00 98.2 69 19 123/76 95 Venturi Mask 55 06/16/17 15:47 65 Objective still needs bipap on and off HEENT: normocephalic, atraumatic Respiratory/Chest: chest wall non-tender, lungs clear Breasts: no masses Cardiovascular: normal peripheral pulses Abdomen: no scars Extremities: no cyanosis Skin: no rash Laboratory Tests 06/16/17 12:15: Arterial Blood pH 7.340L, Arterial Blood Partial Pressure CO2 103.9*H, Arterial Blood Partial Pressure O2 81.5, Arterial Blood HCO3 55.9H, Arterial Blood Oxygen Saturation 95.0, Arterial Blood Base Excess 20.9, Perico Test Positive 06/17/17 03:30: White Blood Count 7.0, Red Blood Count 6.75H, Hemoglobin 19.4*H, Hematocrit 64.8H, Mean Corpuscular Volume 96, Mean Corpuscular Hemoglobin 28.7, Mean Corpuscular Hemoglobin Concent 29.9L, Red Cell Distribution Width 19.2H, Platelet Count 121L, Mean Platelet Volume 6.9, Neutrophils (%) (Auto) 64.1, Lymphocytes (%) (Auto) 21.5, Monocytes (%) (Auto) 11.7H, Eosinophils (%) (Auto) 1.9, Basophils (%) (Auto) 0.9, Sodium Level 135, Potassium Level 3.4, Chloride Level 84L, Carbon Dioxide Level 36H, Anion Gap 15, Blood Urea Nitrogen 28H, Creatinine 1.0H, Estimat Glomerular Filtration Rate 56.0, Glucose Level 99, Calcium Level 10.6H, Phosphorus Level 3.6, Magnesium Level 2.0, Total Bilirubin 1.3H, Direct Bilirubin 0.3, Aspartate Amino Transf (AST/SGOT) 32, Alanine Aminotransferase (ALT/SGPT) 32, Alkaline Phosphatase 77, Total Protein 7.8, Albumin 3.9, Globulin 3.9, Albumin/Globulin Ratio 1.0 06/17/17 04:00: Arterial Blood pH 7.277L, Arterial Blood Partial Pressure CO2 123.6*H, Arterial Blood Partial Pressure O2 87.1, Arterial Blood HCO3 56.4H, Arterial Blood Oxygen Saturation 95.4, Arterial Blood Base Excess 19.4, Perico Test Positive Current Medications Medications (Trade) Dose Ordered Sig/Lloyd Route PRN Reason Start Time Stop Time Status Last Admin Dose Admin Acetazolamide (Diamox) 250 mg TWICE A DAY ORAL 06/15/17 18:00 06/18/17 09:01 06/17/17 09:18 Albuterol/ Ipratropium (DuoNeb 0.5-3(2.5)mg/3ml) 3 ml Q4HRT PRN HHN sob 06/14/17 19:00 06/19/17 18:59 06/16/17 17:47 Aspirin (ASA) 81 mg DAILY ORAL 06/15/17 09:00 07/15/17 08:59 06/17/17 09:17 Ceftriaxone Sodium 2 gm/ Dextrose 110 ml @ 220 mls/hr Q24H IVPB 06/13/17 20:00 06/20/17 19:59 06/16/17 20:55 Clotrimazole (Lotrimin) 1 applic EVERY 12 HOURS TOPIC 06/11/17 13:00 07/11/17 12:59 06/17/17 09:18 Docusate Sodium (Colace) 100 mg THREE TIMES A DAY ORAL 06/16/17 09:00 07/16/17 08:59 06/17/17 09:17 Lamotrigine (LaMICtal) 150 mg DAILY ORAL 06/11/17 09:00 07/11/17 08:59 06/17/17 09:18 Polyethylene Glycol (Miralax) 17 gm BEDTIME ORAL 06/15/17 21:00 07/15/17 20:59 06/16/17 21:25 Promethazine HCl/ Codeine (Phenergan with Codeine) 5 ml Q4H PRN ORAL For Cough 06/10/17 14:00 07/10/17 13:59 Sildenafil Citrate (Revatio) 20 mg THREE TIMES A DAY ORAL 06/12/17 21:30 07/12/17 21:29 06/17/17 09:18 Trazodone HCl (Desyrel) 150 mg BEDTIME ORAL 06/10/17 21:00 07/10/17 20:59 06/16/17 21:24 Vancomycin HCl (Vanco rx to dose) 1 ea DAILY PRN MISC Per rx protocol 06/10/17 14:00 07/10/17 13:59 Vancomycin HCl 500 mg/Dextrose 110 ml @ 110 mls/hr Q12HR@0400,1600 IVPB 06/14/17 04:00 06/19/17 03:59 06/17/17 03:59 Vitamin E (Vitamin E) 1,000 intlu DAILY ORAL 06/17/17 09:00 07/17/17 08:59 06/17/17 09:18 MARIPOSA BLACKBURN 29, 2017 12:11
[2017-06-17] MEDS ORDERED: Tubing IV Secondary IV ONE (13:58)
[2017-06-17] MEDS ORDERED: NS 275ml ONE (13:58)
--- NOTE | 2017-06-17 14:10 | Diagnostic Imaging Report ---
Indication: Dyspnea Comparison: 06/16/17 A single view chest radiograph was obtained. Findings: Residual edema and vascular and cardiac prominence demonstrated. Bones are osteopenic. Findings could be slightly improved, certainly not worse. Impression: Congestive heart failure. Probably no significant change
[2017-06-17] MEDS: Lactulose 20gm/30ml UDC ORAL SCH ×2 (14:27→17:40)
--- NOTE | 2017-06-17 15:11 | Infectious Diseases Prog Note ---
Assessment/Plan Problems: (1) HCAP (healthcare-associated pneumonia) Assessment & Plan: improved on vancomycin and ceftriaxone , to cover for UTI too, will stop vancomycin, already received 7 days total (2) Urinary tract infection Assessment & Plan: due to Klebsiella pneumonia, will treat with ceftriaxon to finish 7 days total , will stop tomorrow (3) Sepsis Assessment & Plan: due to the above, blood culture grew coag negative staph from one bottle , most likely contaminant, already on vancomycin (4) Congestive heart failure Assessment & Plan: had massive diuresis , now with volum contraction and elevated hemoglobulin follow up with cardiology Subjective Respiratory: Reports: shortness of breath Allergies: Coded Allergies: No Known Allergies (Unverified , 06/10/17) All Systems: reviewed and negative except above Subjective she is still on BIPAP, awake and comfortable, respond to verbal commands, afebrile Objective Vital Signs Last 24 Hour Vital Signs Date Time Temp Pulse Resp B/P (MAP) Pulse Ox O2 Delivery O2 Flow Rate FiO2 06/17/17 14:53 65 18 96 50 06/17/17 13:30 69 19 95 3.0 06/17/17 12:14 52 06/17/17 12:00 97.7 61 18 127/77 100 Bi-pap 50 06/17/17 12:00 50 06/17/17 09:48 64 18 96 Facial 50 06/17/17 08:00 73 06/17/17 08:00 97.7 71 18 125/76 94 Nasal Cannula 3.0 06/17/17 08:00 3.0 06/17/17 06:40 Nasal Cannula 3.0 06/17/17 06:40 96 Nasal Cannula 3.0 06/17/17 05:50 63 21 98 Facial 50 06/17/17 04:09 64 06/17/17 04:00 50 06/17/17 03:53 98.2 68 20 124/65 96 Mechanical Ventilator 06/17/17 03:16 69 18 98 Facial 50 06/17/17 00:35 Bi-pap 50 06/17/17 00:34 97 Bi-pap 50 06/17/17 00:33 67 19 97 Facial 50 06/16/17 23:47 63 06/16/17 23:46 98.2 62 21 128/71 96 Mechanical Ventilator 06/16/17 20:00 65 06/16/17 19:25 98.1 68 20 122/78 95 Mechanical Ventilator 06/16/17 17:50 74 18 94 Venturi Mask 14.0 55 06/16/17 17:45 74 18 94 Venturi Mask 14.0 55 06/16/17 16:00 98.2 69 19 123/76 95 Venturi Mask 55 06/16/17 15:47 65 Height (Feet): 5 Height (Inches): 7.00 Weight (Pounds): 171 General Appearance: WD/WN, no acute distress HEENT: normocephalic, atraumatic, anicteric Respiratory/Chest: chest wall non-tender, no respiratory distress, no accessory muscle use, decreased breath sounds, crackles/rales Cardiovascular: normal peripheral pulses, normal rate, regular rhythm, no gallop/murmur Abdomen: normal bowel sounds, soft, non tender, no organomegaly, non distended , no mass, no scars Extremities: no cyanosis, no clubbing Skin: no rash, no lesions Laboratory Tests Test 06/17/17 03:30 06/17/17 04:00 White Blood Count 7.0 K/UL (4.8-10.8) Red Blood Count 6.75 M/UL (4.20-5.40) H Hemoglobin 19.4 G/DL (12.0-16.0) *H Hematocrit 64.8 % (37.0-47.0) H Mean Corpuscular Volume 96 FL (80-99) Mean Corpuscular Hemoglobin 28.7 PG (27.0-31.0) Mean Corpuscular Hemoglobin Concent 29.9 G/DL (32.0-36.0) L Red Cell Distribution Width 19.2 % (11.6-14.8) H Platelet Count 121 K/UL (150-450) L Mean Platelet Volume 6.9 FL (6.5-10.1) Neutrophils (%) (Auto) 64.1 % (45.0-75.0) Lymphocytes (%) (Auto) 21.5 % (20.0-45.0) Monocytes (%) (Auto) 11.7 % (1.0-10.0) H Eosinophils (%) (Auto) 1.9 % (0.0-3.0) Basophils (%) (Auto) 0.9 % (0.0-2.0) Sodium Level 135 mEQ/L (135-145) Potassium Level 3.4 mEQ/L (3.4-4.9) Chloride Level 84 mEQ/L (98-107) L Carbon Dioxide Level 36 mEQ/L (20-30) H Anion Gap 15 (5-15) Blood Urea Nitrogen 28 mg/dL (7-23) H Creatinine 1.0 mg/dL (0.5-0.9) H Estimat Glomerular Filtration Rate 56.0 mL/min (>60) Glucose Level 99 mg/dL (74-106) Calcium Level 10.6 mg/dL (8.6-10.2) H Phosphorus Level 3.6 mg/dL (2.5-4.8) Magnesium Level 2.0 mg/dL (1.7-2.5) Total Bilirubin 1.3 mg/dL (0.0-1.2) H Direct Bilirubin 0.3 mg/dL (0.1-0.3) Aspartate Amino Transf (AST/SGOT) 32 U/L (5-40) Alanine Aminotransferase (ALT/SGPT) 32 U/L (3-33) Alkaline Phosphatase 77 U/L (35-104) Total Protein 7.8 g/dL (6.6-8.7) Albumin 3.9 g/dL (3.5-5.2) Globulin 3.9 g/dL Albumin/Globulin Ratio 1.0 (1.0-2.7) Arterial Blood pH 7.277 (7.350-7.450) Arterial Blood Partial Pressure CO2 123.6 mmHg (35.0-45.0) *H Arterial Blood Partial Pressure O2 87.1 mmHg (75.0-100.0) Arterial Blood HCO3 56.4 mmol/L (22.0-26.0) H Arterial Blood Oxygen Saturation 95.4 % (92.0-98.0) Arterial Blood Base Excess 19.4 Perico Test Positive Current Medications Medications (Trade) Dose Ordered Sig/Lloyd Route PRN Reason Start Time Stop Time Status Last Admin Dose Admin Acetazolamide (Diamox) 250 mg TWICE A DAY ORAL 06/15/17 18:00 06/18/17 09:01 06/17/17 09:18 Albuterol/ Ipratropium (DuoNeb 0.5-3(2.5)mg/3ml) 3 ml Q4HRT PRN HHN sob 06/14/17 19:00 06/19/17 18:59 06/16/17 17:47 Aspirin (ASA) 81 mg DAILY ORAL 06/15/17 09:00 07/15/17 08:59 06/17/17 09:17 Ceftriaxone Sodium 2 gm/ Dextrose 110 ml @ 220 mls/hr Q24H IVPB 06/13/17 20:00 06/20/17 19:59 06/16/17 20:55 Clotrimazole (Lotrimin) 1 applic EVERY 12 HOURS TOPIC 06/11/17 13:00 07/11/17 12:59 06/17/17 09:18 Docusate Sodium (Colace) 100 mg THREE TIMES A DAY ORAL 06/17/17 13:00 07/17/17 12:59 06/17/17 14:28 Lactulose (Cephulac) 30 gm THREE TIMES A DAY ORAL 06/17/17 13:00 07/17/17 12:59 06/17/17 14:27 Lamotrigine (LaMICtal) 150 mg DAILY ORAL 06/11/17 09:00 07/11/17 08:59 06/17/17 09:18 Mineral Oil (Fleet's Mineral Oil Enema) 133 ml EVERY OTHER DAY RECTAL 06/19/17 09:00 07/19/17 08:59 Polyethylene Glycol (Miralax) 17 gm BEDTIME ORAL 06/15/17 21:00 07/15/17 20:59 06/16/17 21:25 Polyethylene Glycol (Miralax) 17 gm BEDTIME ORAL 06/17/17 21:00 07/17/17 20:59 Promethazine HCl/ Codeine (Phenergan with Codeine) 5 ml Q4H PRN ORAL For Cough 06/10/17 14:00 07/10/17 13:59 Sennosides (Senokot) 8.6 mg DAILY ORAL 06/18/17 09:00 07/18/17 08:59 Sildenafil Citrate (Revatio) 20 mg THREE TIMES A DAY ORAL 06/12/17 21:30 07/12/17 21:29 06/17/17 14:27 Trazodone HCl (Desyrel) 150 mg BEDTIME ORAL 06/10/17 21:00 07/10/17 20:59 06/16/17 21:24 Vancomycin HCl (Vanco rx to dose) 1 ea DAILY PRN MISC Per rx protocol 06/10/17 14:00 07/10/17 13:59 Vancomycin HCl 500 mg/Dextrose 110 ml @ 110 mls/hr Q12HR@0400,1600 IVPB 06/14/17 04:00 06/19/17 03:59 06/17/17 03:59 Vitamin E (Vitamin E) 1,000 intlu DAILY ORAL 06/17/17 09:00 07/17/17 08:59 06/17/17 09:18 Aki Blankenship M.D. Jun 17, 2017 15:11
--- NOTE | 2017-06-17 15:42 | Diagnostic Imaging Report ---
Indication: Chest pain Technique: Continuous helical transaxial imaging of the chest was obtained from the thoracic inlet to the upper abdomen during rapid intravenous contrast administration. Arterial phase of enhancement obtained. Coronal 2-D reformats were also obtained and maximum intensity projection images in multiple planes. Study obtained in a Siemens sensation [address] Total Dose length Product (DLP): [address] Dose Index Volume (CTDIvol): 13, 38, 27 mGy Comparison: None Findings: No definite evidence of pulmonary embolus demonstrated. The aorta is moderately calcified without evidence of aneurysm or dissection. The heart is enlarged. Trace pericardial fluid demonstrated. Basilar consolidation demonstrated with cystic changes consist of honeycombing and scarring. Scattered reticular nodular opacities noted mainly appropriate the lungs also involving the upper lobes as well consistent with fibrosis. Poor vascularity is prominent especially the pulmonary veins which appear enlarged bilaterally. Some of the reticular/interstitial opacities present likely on the basis of edema. Please correlate clinically. The visualized part of the upper abdomen is unremarkable. Impression: No evidence of pulmonary embolus, aortic dissection or aneurysm. Scattered reticular densities and honeycombing consistent with fibrosis predominating in the lower lobes. Suspected interstitial pulmonary edema. Please correlate clinically. Atherosclerotic vascular disease The CT scanner at [facility] is accredited by the [employer] and the scans are performed using dose optimization techniques as appropriate to a performed exam including Automatic Exposure control.
[2017-06-17 16:00] VITALS: BP 143/87
[2017-06-17 19:54] VITALS: BP 121/74
[2017-06-17] MEDS: Miralax 17gm pkt ORAL SCH (20:16)
[2017-06-17] MEDS: cefTRIAXone 2 GM in D5W 110 ML IVPB SCH (20:16)
[2017-06-17] MEDS: TraZODone 100mg tab ORAL SCH (20:17)
--- NOTE | 2017-06-17 20:27 | General Progress Note ---
Assessment/Plan Problem List: (1) COPD (chronic obstructive pulmonary disease) ICD Codes: J44.9 - Chronic obstructive pulmonary disease, unspecified SNOMED: 43992998 (2) Congestive heart failure ICD Codes: I50.9 - Heart failure, unspecified SNOMED: 60452514 (3) Hypoxemia ICD Codes: R09.02 - Hypoxemia SNOMED: 912970852 (4) Acute respiratory failure ICD Codes: J96.00 - Acute respiratory failure, unspecified whether with hypoxia or hypercapnia SNOMED: 44941407 Status: progressing Assessment/Plan pulm edema is improving on aggressive diuresis metabolic alkolosis due to dehyration and hyper calcemia and elev hb could be all also due to over diuresis favor cutting on diuresis given increase on co2 and hb and calcium Subjective ROS Limited/Unobtainable: Yes Allergies: Coded Allergies: No Known Allergies (Unverified , 06/10/17) Objective Last 24 Hour Vital Signs Date Time Temp Pulse Resp B/P (MAP) Pulse Ox O2 Delivery O2 Flow Rate FiO2 06/17/17 19:54 98.5 61 18 121/74 97 Bi-pap 06/17/17 19:37 60 18 97 Facial 40 06/17/17 19:28 Bi-pap 06/17/17 19:28 Bi-pap 06/17/17 17:02 62 18 97 50 06/17/17 16:00 97.7 62 18 143/87 99 Bi-pap 50 06/17/17 16:00 62 06/17/17 16:00 50 06/17/17 14:53 65 18 96 50 06/17/17 13:30 69 19 95 3.0 06/17/17 12:14 52 06/17/17 12:00 97.7 61 18 127/77 100 Bi-pap 50 06/17/17 12:00 50 06/17/17 09:48 64 18 96 Facial 50 06/17/17 08:00 73 06/17/17 08:00 97.7 71 18 125/76 94 Nasal Cannula 3.0 06/17/17 08:00 3.0 06/17/17 06:40 Nasal Cannula 3.0 06/17/17 06:40 96 Nasal Cannula 3.0 06/17/17 05:50 63 21 98 Facial 50 06/17/17 04:09 64 06/17/17 04:00 50 06/17/17 03:53 98.2 68 20 124/65 96 Mechanical Ventilator 06/17/17 03:16 69 18 98 Facial 50 06/17/17 00:35 Bi-pap 50 06/17/17 00:34 97 Bi-pap 50 06/17/17 00:33 67 19 97 Facial 50 06/16/17 23:47 63 06/16/17 23:46 98.2 62 21 128/71 96 Mechanical Ventilator Laboratory Tests 06/17/17 03:30: White Blood Count 7.0, Red Blood Count 6.75H, Hemoglobin 19.4*H, Hematocrit 64.8H, Mean Corpuscular Volume 96, Mean Corpuscular Hemoglobin 28.7, Mean Corpuscular Hemoglobin Concent 29.9L, Red Cell Distribution Width 19.2H, Platelet Count 121L, Mean Platelet Volume 6.9, Neutrophils (%) (Auto) 64.1, Lymphocytes (%) (Auto) 21.5, Monocytes (%) (Auto) 11.7H, Eosinophils (%) (Auto) 1.9, Basophils (%) (Auto) 0.9, Sodium Level 135, Potassium Level 3.4, Chloride Level 84L, Carbon Dioxide Level 36H, Anion Gap 15, Blood Urea Nitrogen 28H, Creatinine 1.0H, Estimat Glomerular Filtration Rate 56.0, Glucose Level 99, Calcium Level 10.6H, Phosphorus Level 3.6, Magnesium Level 2.0, Total Bilirubin 1.3H, Direct Bilirubin 0.3, Aspartate Amino Transf (AST/SGOT) 32, Alanine Aminotransferase (ALT/SGPT) 32, Alkaline Phosphatase 77, Total Protein 7.8, Albumin 3.9, Globulin 3.9, Albumin/Globulin Ratio 1.0 06/17/17 04:00: Arterial Blood pH 7.277L, Arterial Blood Partial Pressure CO2 123.6*H, Arterial Blood Partial Pressure O2 87.1, Arterial Blood HCO3 56.4H, Arterial Blood Oxygen Saturation 95.4, Arterial Blood Base Excess 19.4, Perico Test Positive Height (Feet): 5 Height (Inches): 7.00 Weight (Pounds): 171 Cardiovascular: normal rate Respiratory/Chest: lungs clear Olu Calero MD Jun 17, 2017 20:27
[2017-06-17] MEDS ORDERED: Miralax 17gm pkt ORAL SCH (21:00)
--- NOTE | 2017-06-17 23:23 | General Progress Note ---
Assessment/Plan Assessment/Plan 1. Polycythemia, likely with history of underlying chronic obstructive pulmonary disease. --> At this time, we will hold off on DEION 2 level. --> We will need to have polycythemia addressed as outpatient. --> continue to monitor counts 2. Elevated prothrombin time and normal PTT. --> vitamin k given 3. Thrombocytopenia, potentially secondary to underlying healthcare-associated pneumonia. -->She is on antibiotics. --> WBC currently WNL 4. Urinary tract infection. --> She is on zosyn antibiotics, ID following. 5. Congestive heart failure, needs diuresis. --> cardiology following 6. Chronic obstructive pulmonary disease history and difficulty with breathing. 7. Elevated hemoglobin and hematocrit --> Monitor counts. Currently 19.4 hemoglobin and 64.8 hematocrit Subjective Date patient seen: Jun 17, 2017 Time patient seen: 06:00 Constitutional: Denies: no symptoms, chills, diaphoresis, fever, malaise, weakness, other HEENT: Denies: no symptoms, eye pain, blurred vision, tearing, double vision, ear pain, ear discharge, nose pain, nose congestion, throat pain, throat swelling, mouth pain, mouth swelling, other Cardiovascular: Denies: no symptoms, chest pain, edema, irregular heart rate, lightheadedness, palpitations, syncope, other Respiratory: Denies: no symptoms, cough, orthopnea, shortness of breath, SOB with excertion, SOB at rest, sputum, stridor, wheezing, other Gastrointestinal/Abdominal: Denies: no symptoms, abdomen distended, abdominal pain, black stools, tarry stools, blood in stool, constipated, diarrhea, difficulty swallowing, nausea, poor appetite, poor fluid intake, rectal bleeding , vomiting, other Genitourinary: Denies: no symptoms, burning, discharge, frequency, flank pain, hematuria, incontinence, pain, urgency, other Neurologic/Psychiatric: Denies: no symptoms, anxiety, depressed, emotional problems, headache, numbness, paresthesia, pre-existing deficit, seizure, tingling, tremors, weakness, other Hematologic/Lymphatic: Reports: anemia Allergies: Coded Allergies: No Known Allergies (Unverified , 06/10/17) Subjective No acute distress, active bleeding, vitals are stable. Hemoglobin and hematocrit remains elevated. Objective Last 24 Hour Vital Signs Date Time Temp Pulse Resp B/P (MAP) Pulse Ox O2 Delivery O2 Flow Rate FiO2 06/17/17 22:50 58 16 97 Facial 40 06/17/17 21:26 68 22 96 Facial 40 06/17/17 20:00 50 06/17/17 20:00 61 06/17/17 19:54 98.5 61 18 121/74 97 Bi-pap 06/17/17 19:37 60 18 97 Facial 40 06/17/17 19:28 Bi-pap 06/17/17 19:28 Bi-pap 06/17/17 17:02 62 18 97 50 06/17/17 16:00 97.7 62 18 143/87 99 Bi-pap 50 06/17/17 16:00 62 06/17/17 16:00 50 06/17/17 14:53 65 18 96 50 06/17/17 13:30 69 19 95 3.0 06/17/17 12:14 52 06/17/17 12:00 97.7 61 18 127/77 100 Bi-pap 50 06/17/17 12:00 50 06/17/17 09:48 64 18 96 Facial 50 06/17/17 08:00 73 06/17/17 08:00 97.7 71 18 125/76 94 Nasal Cannula 3.0 06/17/17 08:00 3.0 06/17/17 06:40 Nasal Cannula 3.0 06/17/17 06:40 96 Nasal Cannula 3.0 06/17/17 05:50 63 21 98 Facial 50 06/17/17 04:09 64 06/17/17 04:00 50 06/17/17 03:53 98.2 68 20 124/65 96 Mechanical Ventilator 06/17/17 03:16 69 18 98 Facial 50 06/17/17 00:35 Bi-pap 50 06/17/17 00:34 97 Bi-pap 50 06/17/17 00:33 67 19 97 Facial 50 06/16/17 23:47 63 06/16/17 23:46 98.2 62 21 128/71 96 Mechanical Ventilator Laboratory Tests 06/17/17 03:30: White Blood Count 7.0, Red Blood Count 6.75H, Hemoglobin 19.4*H, Hematocrit 64.8H, Mean Corpuscular Volume 96, Mean Corpuscular Hemoglobin 28.7, Mean Corpuscular Hemoglobin Concent 29.9L, Red Cell Distribution Width 19.2H, Platelet Count 121L, Mean Platelet Volume 6.9, Neutrophils (%) (Auto) 64.1, Lymphocytes (%) (Auto) 21.5, Monocytes (%) (Auto) 11.7H, Eosinophils (%) (Auto) 1.9, Basophils (%) (Auto) 0.9, Sodium Level 135, Potassium Level 3.4, Chloride Level 84L, Carbon Dioxide Level 36H, Anion Gap 15, Blood Urea Nitrogen 28H, Creatinine 1.0H, Estimat Glomerular Filtration Rate 56.0, Glucose Level 99, Calcium Level 10.6H, Phosphorus Level 3.6, Magnesium Level 2.0, Total Bilirubin 1.3H, Direct Bilirubin 0.3, Aspartate Amino Transf (AST/SGOT) 32, Alanine Aminotransferase (ALT/SGPT) 32, Alkaline Phosphatase 77, Total Protein 7.8, Albumin 3.9, Globulin 3.9, Albumin/Globulin Ratio 1.0 06/17/17 04:00: Arterial Blood pH 7.277L, Arterial Blood Partial Pressure CO2 123.6*H, Arterial Blood Partial Pressure O2 87.1, Arterial Blood HCO3 56.4H, Arterial Blood Oxygen Saturation 95.4, Arterial Blood Base Excess 19.4, Perico Test Positive Height (Feet): 5 Height (Inches): 7.00 Weight (Pounds): 171 General Appearance: cachetic Neck: non-tender, normal alignment Cardiovascular: normal rate, regular rhythm Respiratory/Chest: chest wall non-tender, lungs clear, normal breath sounds, decreased breath sounds Abdomen: normal bowel sounds, non tender, soft Extremities: non-tender LESLEY MOHAMUD Jun 17, 2017 23:23
--- NOTE | 2017-06-17 23:55 | Cardiology Progress Note ---
Assessment/Plan Assessment/Plan 1. Cor pulmonale with moderate to severe pulmonary HTN most likely COPD, although probably require right heart cath to assess pressures and NO reactivity as an outpatient, continue digoxin, Work up of pulmonary HTN required, including VQ scan to rule out chronic PE, ?ILD, ?connective tissue disease, ?HIV disease, etc. 2. Hypoxemia, resolved, possible obesity hypoventilation syndrome. 3. COPD 4. Secondary polycythemia likely dye to hypoxia. Subjective Subjective Sinus rhythm at 78, Back on bipap mask due to hypoventilation. Objective Last 24 Hour Vital Signs Date Time Temp Pulse Resp B/P (MAP) Pulse Ox O2 Delivery O2 Flow Rate FiO2 06/17/17 22:50 58 16 97 Facial 40 06/17/17 21:26 68 22 96 Facial 40 06/17/17 20:00 50 06/17/17 20:00 61 06/17/17 19:54 98.5 61 18 121/74 97 Bi-pap 06/17/17 19:37 60 18 97 Facial 40 06/17/17 19:28 Bi-pap 06/17/17 19:28 Bi-pap 06/17/17 17:02 62 18 97 50 06/17/17 16:00 97.7 62 18 143/87 99 Bi-pap 50 06/17/17 16:00 62 06/17/17 16:00 50 06/17/17 14:53 65 18 96 50 06/17/17 13:30 69 19 95 3.0 06/17/17 12:14 52 06/17/17 12:00 97.7 61 18 127/77 100 Bi-pap 50 06/17/17 12:00 50 06/17/17 09:48 64 18 96 Facial 50 06/17/17 08:00 73 06/17/17 08:00 97.7 71 18 125/76 94 Nasal Cannula 3.0 06/17/17 08:00 3.0 06/17/17 06:40 Nasal Cannula 3.0 06/17/17 06:40 96 Nasal Cannula 3.0 06/17/17 05:50 63 21 98 Facial 50 06/17/17 04:09 64 06/17/17 04:00 50 06/17/17 03:53 98.2 68 20 124/65 96 Mechanical Ventilator 06/17/17 03:16 69 18 98 Facial 50 06/17/17 00:35 Bi-pap 50 06/17/17 00:34 97 Bi-pap 50 06/17/17 00:33 67 19 97 Facial 50 Laboratory Tests Test 06/17/17 03:30 06/17/17 04:00 White Blood Count 7.0 K/UL (4.8-10.8) Red Blood Count 6.75 M/UL (4.20-5.40) H Hemoglobin 19.4 G/DL (12.0-16.0) *H Hematocrit 64.8 % (37.0-47.0) H Mean Corpuscular Volume 96 FL (80-99) Mean Corpuscular Hemoglobin 28.7 PG (27.0-31.0) Mean Corpuscular Hemoglobin Concent 29.9 G/DL (32.0-36.0) L Red Cell Distribution Width 19.2 % (11.6-14.8) H Platelet Count 121 K/UL (150-450) L Mean Platelet Volume 6.9 FL (6.5-10.1) Neutrophils (%) (Auto) 64.1 % (45.0-75.0) Lymphocytes (%) (Auto) 21.5 % (20.0-45.0) Monocytes (%) (Auto) 11.7 % (1.0-10.0) H Eosinophils (%) (Auto) 1.9 % (0.0-3.0) Basophils (%) (Auto) 0.9 % (0.0-2.0) Sodium Level 135 mEQ/L (135-145) Potassium Level 3.4 mEQ/L (3.4-4.9) Chloride Level 84 mEQ/L (98-107) L Carbon Dioxide Level 36 mEQ/L (20-30) H Anion Gap 15 (5-15) Blood Urea Nitrogen 28 mg/dL (7-23) H Creatinine 1.0 mg/dL (0.5-0.9) H Estimat Glomerular Filtration Rate 56.0 mL/min (>60) Glucose Level 99 mg/dL (74-106) Calcium Level 10.6 mg/dL (8.6-10.2) H Phosphorus Level 3.6 mg/dL (2.5-4.8) Magnesium Level 2.0 mg/dL (1.7-2.5) Total Bilirubin 1.3 mg/dL (0.0-1.2) H Direct Bilirubin 0.3 mg/dL (0.1-0.3) Aspartate Amino Transf (AST/SGOT) 32 U/L (5-40) Alanine Aminotransferase (ALT/SGPT) 32 U/L (3-33) Alkaline Phosphatase 77 U/L (35-104) Total Protein 7.8 g/dL (6.6-8.7) Albumin 3.9 g/dL (3.5-5.2) Globulin 3.9 g/dL Albumin/Globulin Ratio 1.0 (1.0-2.7) Arterial Blood pH 7.277 (7.350-7.450) Arterial Blood Partial Pressure CO2 123.6 mmHg (35.0-45.0) *H Arterial Blood Partial Pressure O2 87.1 mmHg (75.0-100.0) Arterial Blood HCO3 56.4 mmol/L (22.0-26.0) H Arterial Blood Oxygen Saturation 95.4 % (92.0-98.0) Arterial Blood Base Excess 19.4 Perico Test Positive Objective HEENT: Normocephalic and atraumatic. Pupils reactive to light. Pale sclera. Unable to assess oral mucosa due to BiPAP mask, plethoric NECK: Cannot assess JVD, no carotid bruit CARDIOVASCULAR: Regular rate and rhythm. No murmurs, gallops or rubs LUNGS: Diminished breathing sounds both lungs ABDOMEN: Soft, obese, nontender, and nondistended. Positive bowel sounds. No hepatosplenomegaly. No ascites. EXTREMITIES: No edema, clubbing or cyanosis. VIVIANE EDUARDO Jun 17, 2017 23:55
[2017-06-17 23:57] VITALS: BP 129/74
--- NOTE | 2017-06-17 23:59 | Cardiology Progress Note ---
Assessment/Plan Assessment/Plan 1. Cor pulmonale with moderate to severe pulmonary HTN most likely COPD, continue digoxin, Work up of pulmonary HTN required, including RHC, VQ scan to rule out chronic PE, ?ILD, ?connective tissue disease, ?HIV disease, etc. 2. Hypoxemia, resolved, possible obesity hypoventilation syndrome, Bipap mask. 3. COPD 4. Secondary polycythemia likely dye to hypoxia. Subjective Subjective Sinus rhythm at 75, Back on facial mask Objective Last 24 Hour Vital Signs Date Time Temp Pulse Resp B/P (MAP) Pulse Ox O2 Delivery O2 Flow Rate FiO2 06/17/17 22:50 58 16 97 Facial 40 06/17/17 21:26 68 22 96 Facial 40 06/17/17 20:00 50 06/17/17 20:00 61 06/17/17 19:54 98.5 61 18 121/74 97 Bi-pap 06/17/17 19:37 60 18 97 Facial 40 06/17/17 19:28 Bi-pap 06/17/17 19:28 Bi-pap 06/17/17 17:02 62 18 97 50 06/17/17 16:00 97.7 62 18 143/87 99 Bi-pap 50 06/17/17 16:00 62 06/17/17 16:00 50 06/17/17 14:53 65 18 96 50 06/17/17 13:30 69 19 95 3.0 06/17/17 12:14 52 06/17/17 12:00 97.7 61 18 127/77 100 Bi-pap 50 06/17/17 12:00 50 06/17/17 09:48 64 18 96 Facial 50 06/17/17 08:00 73 06/17/17 08:00 97.7 71 18 125/76 94 Nasal Cannula 3.0 06/17/17 08:00 3.0 06/17/17 06:40 Nasal Cannula 3.0 06/17/17 06:40 96 Nasal Cannula 3.0 06/17/17 05:50 63 21 98 Facial 50 06/17/17 04:09 64 06/17/17 04:00 50 06/17/17 03:53 98.2 68 20 124/65 96 Mechanical Ventilator 06/17/17 03:16 69 18 98 Facial 50 06/17/17 00:35 Bi-pap 50 06/17/17 00:34 97 Bi-pap 50 06/17/17 00:33 67 19 97 Facial 50 2D Echo: LVEF 65% RA/RV dilatation, RVSP 58 mmHg, Grade I lVDD Laboratory Tests Test 06/17/17 03:30 06/17/17 04:00 White Blood Count 7.0 K/UL (4.8-10.8) Red Blood Count 6.75 M/UL (4.20-5.40) H Hemoglobin 19.4 G/DL (12.0-16.0) *H Hematocrit 64.8 % (37.0-47.0) H Mean Corpuscular Volume 96 FL (80-99) Mean Corpuscular Hemoglobin 28.7 PG (27.0-31.0) Mean Corpuscular Hemoglobin Concent 29.9 G/DL (32.0-36.0) L Red Cell Distribution Width 19.2 % (11.6-14.8) H Platelet Count 121 K/UL (150-450) L Mean Platelet Volume 6.9 FL (6.5-10.1) Neutrophils (%) (Auto) 64.1 % (45.0-75.0) Lymphocytes (%) (Auto) 21.5 % (20.0-45.0) Monocytes (%) (Auto) 11.7 % (1.0-10.0) H Eosinophils (%) (Auto) 1.9 % (0.0-3.0) Basophils (%) (Auto) 0.9 % (0.0-2.0) Sodium Level 135 mEQ/L (135-145) Potassium Level 3.4 mEQ/L (3.4-4.9) Chloride Level 84 mEQ/L (98-107) L Carbon Dioxide Level 36 mEQ/L (20-30) H Anion Gap 15 (5-15) Blood Urea Nitrogen 28 mg/dL (7-23) H Creatinine 1.0 mg/dL (0.5-0.9) H Estimat Glomerular Filtration Rate 56.0 mL/min (>60) Glucose Level 99 mg/dL (74-106) Calcium Level 10.6 mg/dL (8.6-10.2) H Phosphorus Level 3.6 mg/dL (2.5-4.8) Magnesium Level 2.0 mg/dL (1.7-2.5) Total Bilirubin 1.3 mg/dL (0.0-1.2) H Direct Bilirubin 0.3 mg/dL (0.1-0.3) Aspartate Amino Transf (AST/SGOT) 32 U/L (5-40) Alanine Aminotransferase (ALT/SGPT) 32 U/L (3-33) Alkaline Phosphatase 77 U/L (35-104) Total Protein 7.8 g/dL (6.6-8.7) Albumin 3.9 g/dL (3.5-5.2) Globulin 3.9 g/dL Albumin/Globulin Ratio 1.0 (1.0-2.7) Arterial Blood pH 7.277 (7.350-7.450) Arterial Blood Partial Pressure CO2 123.6 mmHg (35.0-45.0) *H Arterial Blood Partial Pressure O2 87.1 mmHg (75.0-100.0) Arterial Blood HCO3 56.4 mmol/L (22.0-26.0) H Arterial Blood Oxygen Saturation 95.4 % (92.0-98.0) Arterial Blood Base Excess 19.4 Perico Test Positive Objective HEENT: Normocephalic and atraumatic. Pupils reactive to light. Pale sclera. Unable to assess oral mucosa due to BiPAP mask, plethoric NECK: Cannot assess JVD, no carotid bruit CARDIOVASCULAR: Regular rate and rhythm. No murmurs, gallops or rubs LUNGS: Diminished breathing sounds both lungs ABDOMEN: Soft, obese, nontender, and nondistended. Positive bowel sounds. No hepatosplenomegaly. No ascites. EXTREMITIES: No edema, clubbing or cyanosis. VIVIANE EDUARDO Jun 17, 2017 23:59
[2017-06-18 04:00] VITALS: BP 147/74
[2017-06-18 08:00] VITALS: BP 119/75
[2017-06-18] MEDS: LaMICtal 150mg tab ORAL SCH (08:26)
[2017-06-18] MEDS: Lactulose 20gm/30ml UDC ORAL SCH ×3 (08:26→17:16)
[2017-06-18] MEDS: Docusate 100mg cap ORAL SCH ×3 (08:26→17:16)
[2017-06-18] MEDS: VITAMIN E 1000 UNIT ORAL SCH (08:26)
[2017-06-18] MEDS: Revatio 20mg tab ORAL SCH ×3 (08:26→17:16)
[2017-06-18] MEDS: Aspirin Baby 81mg ORAL SCH (08:26)
--- NOTE | 2017-06-18 09:25 | General Progress Note ---
Assessment/Plan Status: stable Assessment/Plan - Cr 1.4 now down to 1.0 - COPD , Polycythemia - HCAP (healthcare-associated pneumonia) - Urinary tract infection - Sepsis - Congestive heart failure K and mag supplement as needed. Trial Diamox Monitor lytes and renal parameters avoid nephrotoxics optimize pulm and cardiac status Subjective ROS Limited/Unobtainable: No Constitutional: Reports: malaise Allergies: Coded Allergies: No Known Allergies (Unverified , 06/10/17) Objective Last 24 Hour Vital Signs Date Time Temp Pulse Resp B/P (MAP) Pulse Ox O2 Delivery O2 Flow Rate FiO2 06/18/17 08:15 94 Nasal Cannula 5.0 06/18/17 08:15 Nasal Cannula 5.0 06/18/17 08:00 50 06/18/17 08:00 97.5 66 20 119/75 96 Bi-pap 50 06/18/17 08:00 60 06/18/17 07:25 58 14 99 Facial 40 06/18/17 05:21 60 21 97 Facial 40 06/18/17 04:00 50 06/18/17 04:00 98.3 62 20 147/74 97 Bi-pap 06/18/17 02:53 66 20 96 Facial 40 06/18/17 01:10 65 20 Bi-pap 40 06/18/17 01:08 64 20 96 Facial 40 06/18/17 00:01 62 06/17/17 23:57 97.7 65 22 129/74 97 Bi-pap 06/17/17 22:50 58 16 97 Facial 40 06/17/17 21:26 68 22 96 Facial 40 06/17/17 20:00 50 06/17/17 20:00 61 06/17/17 19:54 98.5 61 18 121/74 97 Bi-pap 06/17/17 19:37 60 18 97 Facial 40 06/17/17 19:28 Bi-pap 06/17/17 19:28 Bi-pap 06/17/17 17:02 62 18 97 50 06/17/17 16:00 97.7 62 18 143/87 99 Bi-pap 50 06/17/17 16:00 62 06/17/17 16:00 50 06/17/17 14:53 65 18 96 50 06/17/17 13:30 69 19 95 3.0 06/17/17 12:14 52 8/29/17 12:00 97.7 61 18 127/77 100 Bi-pap 50 06/17/17 12:00 50 06/17/17 09:48 64 18 96 Facial 50 Height (Feet): 5 Height (Inches): 7.00 Weight (Pounds): 173 General Appearance: no apparent distress Objective no change in PE JENNIFER OVALLE Jun 18, 2017 09:25
[2017-06-18 10:15] LABS: INR 1.1 (0.9-1.1); PROTHROMBIN TIME 11.9 SEC (9.30-11.50)
--- NOTE | 2017-06-18 11:19 | Pulmonology Progress Note ---
Assessment/Plan Problems: (1) Acute respiratory failure (2) COPD (chronic obstructive pulmonary disease) (3) Congestive heart failure (4) Sepsis Assessment/Plan pt diuresed 20 liters sofar Hem is rising as a sign of hemoconcentration BNP decreasing CT angio of chest was negative for PE, some pulmonary fibrosis and interstitial edema might go to med/surg Subjective ROS Limited/Unobtainable: No Constitutional: Reports: no symptoms HEENT: Repors: no symptoms Allergies: Coded Allergies: No Known Allergies (Unverified , 06/10/17) Objective Last 24 Hour Vital Signs Date Time Temp Pulse Resp B/P (MAP) Pulse Ox O2 Delivery O2 Flow Rate FiO2 06/18/17 08:15 94 Nasal Cannula 5.0 06/18/17 08:15 Nasal Cannula 5.0 06/18/17 08:00 50 06/18/17 08:00 97.5 66 20 119/75 96 Bi-pap 50 06/18/17 08:00 60 06/18/17 07:25 58 14 99 Facial 40 06/18/17 05:21 60 21 97 Facial 40 06/18/17 04:00 50 06/18/17 04:00 98.3 62 20 147/74 97 Bi-pap 06/18/17 02:53 66 20 96 Facial 40 06/18/17 01:10 65 20 Bi-pap 40 06/18/17 01:08 64 20 96 Facial 40 06/18/17 00:01 62 06/17/17 23:57 97.7 65 22 129/74 97 Bi-pap 06/17/17 22:50 58 16 97 Facial 40 06/17/17 21:26 68 22 96 Facial 40 06/17/17 20:00 50 06/17/17 20:00 61 06/17/17 19:54 98.5 61 18 121/74 97 Bi-pap 06/17/17 19:37 60 18 97 Facial 40 06/17/17 19:28 Bi-pap 06/17/17 19:28 Bi-pap 06/17/17 17:02 62 18 97 50 06/17/17 16:00 97.7 62 18 143/87 99 Bi-pap 50 06/17/17 16:00 62 06/17/17 16:00 50 06/17/17 14:53 65 18 96 50 06/17/17 13:30 69 19 95 3.0 06/17/17 12:14 52 06/17/17 12:00 97.7 61 18 127/77 100 Bi-pap 50 06/17/17 12:00 50 Objective still needs bipap only at night time Laboratory Tests 06/18/17 09:30: Prothrombin Time 11.9H, Prothromb Time International Ratio 1.1, Activated Partial Thromboplast Time 28 Current Medications Medications (Trade) Dose Ordered Sig/Lloyd Route PRN Reason Start Time Stop Time Status Last Admin Dose Admin Albuterol/ Ipratropium (DuoNeb 0.5-3(2.5)mg/3ml) 3 ml Q4HRT PRN HHN sob 06/14/17 19:00 06/19/17 18:59 06/16/17 17:47 Aspirin (ASA) 81 mg DAILY ORAL 06/15/17 09:00 07/15/17 08:59 06/18/17 08:26 Ceftriaxone Sodium 2 gm/ Dextrose 110 ml @ 220 mls/hr Q24H IVPB 06/13/17 20:00 06/20/17 19:59 06/17/17 20:16 Clotrimazole (Lotrimin) 1 applic EVERY 12 HOURS TOPIC 06/11/17 13:00 07/11/17 12:59 06/18/17 08:25 Docusate Sodium (Colace) 100 mg THREE TIMES A DAY ORAL 06/17/17 13:00 07/17/17 12:59 06/18/17 08:26 Lactulose (Cephulac) 30 gm THREE TIMES A DAY ORAL 06/17/17 13:00 07/17/17 12:59 06/18/17 08:26 Lamotrigine (LaMICtal) 150 mg DAILY ORAL 06/11/17 09:00 07/11/17 08:59 06/18/17 08:26 Mineral Oil (Fleet's Mineral Oil Enema) 133 ml EVERY OTHER DAY RECTAL 06/19/17 09:00 07/19/17 08:59 Polyethylene Glycol (Miralax) 17 gm BEDTIME ORAL 06/15/17 21:00 07/15/17 20:59 06/17/17 20:16 Polyethylene Glycol (Miralax) 17 gm BEDTIME ORAL 06/17/17 21:00 07/17/17 20:59 06/17/17 20:16 Promethazine HCl/ Codeine (Phenergan with Codeine) 5 ml Q4H PRN ORAL For Cough 06/10/17 14:00 07/10/17 13:59 Sennosides (Senokot) 8.6 mg DAILY ORAL 06/18/17 09:00 07/18/17 08:59 06/18/17 08:25 Sildenafil Citrate (Revatio) 20 mg THREE TIMES A DAY ORAL 06/12/17 21:30 07/12/17 21:29 06/18/17 08:26 Trazodone HCl (Desyrel) 150 mg BEDTIME ORAL 06/10/17 21:00 07/10/17 20:59 06/17/17 20:17 Vitamin E (Vitamin E) 1,000 intlu DAILY ORAL 06/17/17 09:00 07/17/17 08:59 06/18/17 08:26 MARIPOSA BLACKBURN Jun 18, 2017 11:19
[2017-06-18 12:02] VITALS: BP 125/74
[2017-06-18] MEDS ORDERED: Milk of Magnesia 30ml Ud ORAL PRN (12:45)
[2017-06-18 13:16] LABS: BASOPHILS % (AUTO) 0.8 % (0.0-2.0); EOSINOPHILS % (AUTO) 1.1 % (0.0-3.0); LYMPHOCYTES % (AUTO) 20.5 % (20.0-45.0); MEAN CORPUSCULAR HEMOGLOBIN 27.9 PG (27.0-31.0); MEAN CORPUSCULAR HGB CONC 28.9 G/DL (32.0-36.0); MEAN CORPUSCULAR VOLUME 96 FL (80-99); MEAN PLATELET VOLUME 6.9 FL (6.5-10.1); MONOCYTES % (AUTO) 13.5 % (1.0-10.0); NEUTROPHILS % (AUTO) 64.2 % (45.0-75.0); PLATELET COUNT 129 K/UL (150-450); RED BLOOD COUNT 7.03 M/UL (4.20-5.40); RED CELL DISTRIBUTION WIDTH 19.2 % (11.6-14.8); WHITE BLOOD COUNT 6.6 K/UL (4.8-10.8)
[2017-06-18 13:24] LABS: ALBUMIN/GLOBULIN RATIO 1.4 (1.0-2.7); CALCIUM 10.2 mg/dL (8.6-10.2); POTASSIUM 3.6 mEQ/L (3.4-4.9); TOTAL PROTEIN 7.2 g/dL (6.6-8.7)
[2017-06-18] MEDS ORDERED: Tubing IV Secondary IV ONE (14:01)
[2017-06-18] MEDS ORDERED: NS 275ml ONE (14:01)
--- NOTE | 2017-06-18 15:31 | Infectious Diseases Prog Note ---
Assessment/Plan Problems: (1) HCAP (healthcare-associated pneumonia) Assessment & Plan: improved on vancomycin and ceftriaxone , which covers UTI too, already received 7 days total (2) Urinary tract infection Assessment & Plan: due to Klebsiella pneumonia, will stop ceftriaxon since she received 7 days total (3) Sepsis Assessment & Plan: due to the above, blood culture grew coag negative staph from one bottle , most likely contaminant, already on vancomycin (4) Congestive heart failure Assessment & Plan: had massive diuresis , now with volum contraction and elevated hemoglobulin follow up with cardiology Subjective Constitutional: Reports: no symptoms HEENT: Reports: no symptoms Respiratory: Reports: no symptoms Breasts: Reports: no symptoms Cardiovascular: Reports: no symptoms Gastrointestinal/Abdominal: Reports: no symptoms Genitourinary: Reports: no symptoms Neurologic: Reports: no symptoms Psychiatric: Reports: no symptoms Skin: Reports: no symptoms Endocrine: Reports: no symptoms Allergies: Coded Allergies: No Known Allergies (Unverified , 06/10/17) Subjective she is breathing well on nasal canula, no longer needs BIPAP, awake and comfortable, respond to verbal commands, afebrile Objective Vital Signs Last 24 Hour Vital Signs Date Time Temp Pulse Resp B/P (MAP) Pulse Ox O2 Delivery O2 Flow Rate FiO2 06/18/17 12:02 97.9 62 20 125/74 96 Nasal Cannula 5.0 06/18/17 12:00 61 06/18/17 12:00 5.0 06/18/17 08:15 94 Nasal Cannula 5.0 06/18/17 08:15 Nasal Cannula 5.0 06/18/17 08:00 50 06/18/17 08:00 97.5 66 20 119/75 96 Bi-pap 50 06/18/17 08:00 60 06/18/17 07:25 58 14 99 Facial 40 06/18/17 05:21 60 21 97 Facial 40 06/18/17 04:00 50 06/18/17 04:00 98.3 62 20 147/74 97 Bi-pap 06/18/17 02:53 66 20 96 Facial 40 06/18/17 01:10 65 20 Bi-pap 40 06/18/17 01:08 64 20 96 Facial 40 06/18/17 00:01 62 06/17/17 23:57 97.7 65 22 129/74 97 Bi-pap 06/17/17 22:50 58 16 97 Facial 40 06/17/17 21:26 68 22 96 Facial 40 06/17/17 20:00 50 06/17/17 20:00 61 06/17/17 19:54 98.5 61 18 121/74 97 Bi-pap 06/17/17 19:37 60 18 97 Facial 40 06/17/17 19:28 Bi-pap 06/17/17 19:28 Bi-pap 06/17/17 17:02 62 18 97 50 06/17/17 16:00 97.7 62 18 143/87 99 Bi-pap 50 06/17/17 16:00 62 06/17/17 16:00 50 Height (Feet): 5 Height (Inches): 7.00 Weight (Pounds): 173 General Appearance: WD/WN, no acute distress HEENT: normocephalic, atraumatic, anicteric, mucous membranes moist Respiratory/Chest: chest wall non-tender, lungs clear, normal breath sounds, no respiratory distress, no accessory muscle use Cardiovascular: normal peripheral pulses, normal rate, regular rhythm, no gallop/murmur, no JVD Abdomen: normal bowel sounds, soft, non tender, no organomegaly, non distended , no mass, no scars Extremities: no cyanosis, no clubbing Skin: no rash, no lesions Neurologic/Psychiatric: alert, responsive Laboratory Tests Test 06/18/17 08:30 06/18/17 09:30 White Blood Count 6.6 K/UL (4.8-10.8) Red Blood Count 7.03 M/UL (4.20-5.40) H Hemoglobin 19.6 G/DL (12.0-16.0) *H Hematocrit 67.9 % (37.0-47.0) H Mean Corpuscular Volume 96 FL (80-99) Mean Corpuscular Hemoglobin 27.9 PG (27.0-31.0) Mean Corpuscular Hemoglobin Concent 28.9 G/DL (32.0-36.0) L Red Cell Distribution Width 19.2 % (11.6-14.8) H Platelet Count 129 K/UL (150-450) L Mean Platelet Volume 6.9 FL (6.5-10.1) Neutrophils (%) (Auto) 64.2 % (45.0-75.0) Lymphocytes (%) (Auto) 20.5 % (20.0-45.0) Monocytes (%) (Auto) 13.5 % (1.0-10.0) H Eosinophils (%) (Auto) 1.1 % (0.0-3.0) Basophils (%) (Auto) 0.8 % (0.0-2.0) Sodium Level 141 mEQ/L (135-145) Potassium Level 3.6 mEQ/L (3.4-4.9) Chloride Level 92 mEQ/L (98-107) L Carbon Dioxide Level 39 mEQ/L (20-30) H Anion Gap 10 (5-15) Blood Urea Nitrogen 34 mg/dL (7-23) H Creatinine 1.0 mg/dL (0.5-0.9) H Estimat Glomerular Filtration Rate 56.0 mL/min (>60) Glucose Level 170 mg/dL (74-106) H Calcium Level 10.2 mg/dL (8.6-10.2) Total Bilirubin 1.0 mg/dL (0.0-1.2) Aspartate Amino Transf (AST/SGOT) 38 U/L (5-40) Alanine Aminotransferase (ALT/SGPT) 46 U/L (3-33) H Alkaline Phosphatase 90 U/L (35-104) Total Protein 7.2 g/dL (6.6-8.7) Albumin 4.3 g/dL (3.5-5.2) Globulin 2.9 g/dL Albumin/Globulin Ratio 1.4 (1.0-2.7) Prothrombin Time 11.9 SEC (9.30-11.50) H Prothromb Time International Ratio 1.1 (0.9-1.1) Activated Partial Thromboplast Time 28 SEC (23-33) Current Medications Medications (Trade) Dose Ordered Sig/Lloyd Route PRN Reason Start Time Stop Time Status Last Admin Dose Admin Albuterol/ Ipratropium (DuoNeb 0.5-3(2.5)mg/3ml) 3 ml Q4HRT PRN HHN sob 06/14/17 19:00 06/19/17 18:59 06/16/17 17:47 Aspirin (ASA) 81 mg DAILY ORAL 06/15/17 09:00 07/15/17 08:59 06/18/17 08:26 Ceftriaxone Sodium 2 gm/ Dextrose 110 ml @ 220 mls/hr Q24H IVPB 06/13/17 20:00 06/20/17 19:59 06/17/17 20:16 Clotrimazole (Lotrimin) 1 applic EVERY 12 HOURS TOPIC 06/11/17 13:00 07/11/17 12:59 06/18/17 08:25 Docusate Sodium (Colace) 100 mg THREE TIMES A DAY ORAL 06/17/17 13:00 07/17/17 12:59 06/18/17 12:43 Lactulose (Cephulac) 30 gm THREE TIMES A DAY ORAL 06/17/17 13:00 07/17/17 12:59 06/18/17 12:43 Lamotrigine (LaMICtal) 150 mg DAILY ORAL 06/11/17 09:00 07/11/17 08:59 06/18/17 08:26 Magnesium Hydroxide (Mom) 30 ml Q6HR PRN ORAL Constipation 06/18/17 12:45 07/18/17 12:44 Mineral Oil (Fleet's Mineral Oil Enema) 133 ml EVERY OTHER DAY RECTAL 06/19/17 09:00 07/19/17 08:59 Polyethylene Glycol (Miralax) 17 gm BEDTIME ORAL 06/15/17 21:00 07/15/17 20:59 06/17/17 20:16 Polyethylene Glycol (Miralax) 17 gm BEDTIME ORAL 06/17/17 21:00 07/17/17 20:59 06/17/17 20:16 Promethazine HCl/ Codeine (Phenergan with Codeine) 5 ml Q4H PRN ORAL For Cough 06/10/17 14:00 07/10/17 13:59 Sennosides (Senokot) 8.6 mg DAILY ORAL 06/18/17 09:00 07/18/17 08:59 06/18/17 08:25 Sildenafil Citrate (Revatio) 20 mg THREE TIMES A DAY ORAL 06/12/17 21:30 07/12/17 21:29 06/18/17 12:43 Trazodone HCl (Desyrel) 150 mg BEDTIME ORAL 06/10/17 21:00 07/10/17 20:59 06/17/17 20:17 Vitamin E (Vitamin E) 1,000 intlu DAILY ORAL 06/17/17 09:00 07/17/17 08:59 06/18/17 08:26 Aki Blankenship M.D. Jun 18, 2017 15:31
[2017-06-18 16:00] VITALS: BP 128/76
[2017-06-18 20:00] VITALS: BP 140/77
--- NOTE | 2017-06-18 20:39 | General Progress Note ---
Assessment/Plan Problem List: (1) COPD (chronic obstructive pulmonary disease) ICD Codes: J44.9 - Chronic obstructive pulmonary disease, unspecified SNOMED: 11126458 (2) Congestive heart failure ICD Codes: I50.9 - Heart failure, unspecified SNOMED: 00163175 (3) Hypoxemia ICD Codes: R09.02 - Hypoxemia SNOMED: 135503734 (4) Acute respiratory failure ICD Codes: J96.00 - Acute respiratory failure, unspecified whether with hypoxia or hypercapnia SNOMED: 23171848 Status: progressing Assessment/Plan pulm edema is improving copd resp insuff no wheezing clinically improving chf is improving needs to go to snf intermittent bipap Subjective Respiratory: Reports: SOB with excertion Allergies: Coded Allergies: No Known Allergies (Unverified , 06/10/17) Objective Last 24 Hour Vital Signs Date Time Temp Pulse Resp B/P (MAP) Pulse Ox O2 Delivery O2 Flow Rate FiO2 06/18/17 19:53 Nasal Cannula 5.0 06/18/17 19:53 96 Nasal Cannula 5.0 06/18/17 19:53 64 16 99 Facial 40 06/18/17 16:00 68 06/18/17 16:00 5.0 06/18/17 16:00 97.9 62 18 128/76 97 Nasal Cannula 5.0 06/18/17 12:02 97.9 62 20 125/74 96 Nasal Cannula 5.0 06/18/17 12:00 61 06/18/17 12:00 5.0 06/18/17 08:15 94 Nasal Cannula 5.0 06/18/17 08:15 Nasal Cannula 5.0 06/18/17 08:00 50 06/18/17 08:00 97.5 66 20 119/75 96 Bi-pap 50 06/18/17 08:00 60 06/18/17 07:25 58 14 99 Facial 40 06/18/17 05:21 60 21 97 Facial 40 06/18/17 04:00 50 06/18/17 04:00 98.3 62 20 147/74 97 Bi-pap 06/18/17 02:53 66 20 96 Facial 40 06/18/17 01:10 65 20 Bi-pap 40 06/18/17 01:08 64 20 96 Facial 40 06/18/17 00:01 62 06/17/17 23:57 97.7 65 22 129/74 97 Bi-pap 06/17/17 22:50 58 16 97 Facial 40 06/17/17 21:26 68 22 96 Facial 40 Intake and Output 06/18/17 06/19/17 19:00 07:00 # Voids 2 Laboratory Tests 06/18/17 08:30: White Blood Count 6.6, Red Blood Count 7.03H, Hemoglobin 19.6*H, Hematocrit 67.9H, Mean Corpuscular Volume 96, Mean Corpuscular Hemoglobin 27.9, Mean Corpuscular Hemoglobin Concent 28.9L, Red Cell Distribution Width 19.2H, Platelet Count 129L, Mean Platelet Volume 6.9, Neutrophils (%) (Auto) 64.2, Lymphocytes (%) (Auto) 20.5, Monocytes (%) (Auto) 13.5H, Eosinophils (%) (Auto) 1.1, Basophils (%) (Auto) 0.8, Sodium Level 141, Potassium Level 3.6, Chloride Level 92L, Carbon Dioxide Level 39H, Anion Gap 10, Blood Urea Nitrogen 34H, Creatinine 1.0H, Estimat Glomerular Filtration Rate 56.0, Glucose Level 170H, Calcium Level 10.2, Total Bilirubin 1.0, Aspartate Amino Transf (AST/SGOT) 38, Alanine Aminotransferase (ALT/SGPT) 46H, Alkaline Phosphatase 90, Total Protein 7.2, Albumin 4.3, Globulin 2.9, Albumin/Globulin Ratio 1.4 06/18/17 09:30: Prothrombin Time 11.9H, Prothromb Time International Ratio 1.1, Activated Partial Thromboplast Time 28 Height (Feet): 5 Height (Inches): 7.00 Weight (Pounds): 173 Respiratory/Chest: lungs clear Olu Calero MD Jun 18, 2017 20:39
--- NOTE | 2017-06-18 22:34 | General Progress Note ---
Assessment/Plan Status: stable Assessment/Plan 1. Polycythemia, likely with history of underlying chronic obstructive pulmonary disease. --> At this time, we will hold off on DEION 2 level. --> We will need to have polycythemia addressed as outpatient. --> Continue to monitor counts 2. Elevated prothrombin time and normal PTT. --> vitamin k given 3. Thrombocytopenia, potentially secondary to underlying healthcare-associated pneumonia. --> WBC currently WNL 4. Urinary tract infection. --> She is on zosyn antibiotics --> ID following. 5. Congestive heart failure, needs diuresis. --> cardiology following 6. Chronic obstructive pulmonary disease history and difficulty with breathing. 7. Elevated hemoglobin and hematocrit --> Monitor counts. --> Currently 19.4 hemoglobin and 64.8 hematocrit Subjective Date patient seen: Jun 18, 2017 Time patient seen: 06:00 Hematologic/Lymphatic: Reports: anemia Allergies: Coded Allergies: No Known Allergies (Unverified , 06/10/17) Subjective No acute distress, active bleeding, vitals are stable. Hemoglobin and hematocrit remains elevated.No complaints of pain. Objective Last 24 Hour Vital Signs Date Time Temp Pulse Resp B/P (MAP) Pulse Ox O2 Delivery O2 Flow Rate FiO2 06/18/17 20:00 5.0 06/18/17 20:00 98.0 64 18 140/77 95 Nasal Cannula 3.0 06/18/17 19:53 Nasal Cannula 5.0 06/18/17 19:53 96 Nasal Cannula 5.0 06/18/17 19:53 64 16 99 Facial 40 06/18/17 16:00 68 06/18/17 16:00 5.0 06/18/17 16:00 97.9 62 18 128/76 97 Nasal Cannula 5.0 06/18/17 12:02 97.9 62 20 125/74 96 Nasal Cannula 5.0 06/18/17 12:00 61 06/18/17 12:00 5.0 06/18/17 08:15 94 Nasal Cannula 5.0 06/18/17 08:15 Nasal Cannula 5.0 06/18/17 08:00 50 06/18/17 08:00 97.5 66 20 119/75 96 Bi-pap 50 06/18/17 08:00 60 06/18/17 07:25 58 14 99 Facial 40 06/18/17 05:21 60 21 97 Facial 40 06/18/17 04:00 50 06/18/17 04:00 98.3 62 20 147/74 97 Bi-pap 06/18/17 02:53 66 20 96 Facial 40 06/18/17 01:10 65 20 Bi-pap 40 06/18/17 01:08 64 20 96 Facial 40 06/18/17 00:01 62 06/17/17 23:57 97.7 65 22 129/74 97 Bi-pap 06/17/17 22:50 58 16 97 Facial 40 Intake and Output 06/18/17 06/19/17 19:00 07:00 # Voids 2 Laboratory Tests 06/18/17 08:30: White Blood Count 6.6, Red Blood Count 7.03H, Hemoglobin 19.6*H, Hematocrit 67.9H, Mean Corpuscular Volume 96, Mean Corpuscular Hemoglobin 27.9, Mean Corpuscular Hemoglobin Concent 28.9L, Red Cell Distribution Width 19.2H, Platelet Count 129L, Mean Platelet Volume 6.9, Neutrophils (%) (Auto) 64.2, Lymphocytes (%) (Auto) 20.5, Monocytes (%) (Auto) 13.5H, Eosinophils (%) (Auto) 1.1, Basophils (%) (Auto) 0.8, Sodium Level 141, Potassium Level 3.6, Chloride Level 92L, Carbon Dioxide Level 39H, Anion Gap 10, Blood Urea Nitrogen 34H, Creatinine 1.0H, Estimat Glomerular Filtration Rate 56.0, Glucose Level 170H, Calcium Level 10.2, Total Bilirubin 1.0, Aspartate Amino Transf (AST/SGOT) 38, Alanine Aminotransferase (ALT/SGPT) 46H, Alkaline Phosphatase 90, Total Protein 7.2, Albumin 4.3, Globulin 2.9, Albumin/Globulin Ratio 1.4 06/18/17 09:30: Prothrombin Time 11.9H, Prothromb Time International Ratio 1.1, Activated Partial Thromboplast Time 28 Height (Feet): 5 Height (Inches): 7.00 Weight (Pounds): 173 General Appearance: no apparent distress Neck: non-tender, normal alignment Cardiovascular: normal rate, regular rhythm Respiratory/Chest: chest wall non-tender, lungs clear Abdomen: normal bowel sounds, non tender, soft KLEYNBERG,LESLEY Jun 18, 2017 22:34
--- NOTE | 2017-06-18 23:40 | Cardiology Progress Note ---
Assessment/Plan Assessment/Plan 1. Cor pulmonale with moderate to severe pulmonary HTN most likely COPD, continue digoxin. 2. Hypoxemia, resolved, possible obesity hypoventilation syndrome. 3. COPD 4. Secondary polycythemia likely dye to hypoxia. Subjective Subjective Sinus rhythm at 65, On NC oxygen Objective Last 24 Hour Vital Signs Date Time Temp Pulse Resp B/P (MAP) Pulse Ox O2 Delivery O2 Flow Rate FiO2 06/18/17 20:00 5.0 06/18/17 20:00 98.0 64 18 140/77 95 Nasal Cannula 3.0 06/18/17 19:53 Nasal Cannula 5.0 06/18/17 19:53 96 Nasal Cannula 5.0 06/18/17 19:53 64 16 99 Facial 40 06/18/17 16:00 68 06/18/17 16:00 5.0 06/18/17 16:00 97.9 62 18 128/76 97 Nasal Cannula 5.0 06/18/17 12:02 97.9 62 20 125/74 96 Nasal Cannula 5.0 06/18/17 12:00 61 06/18/17 12:00 5.0 06/18/17 08:15 94 Nasal Cannula 5.0 06/18/17 08:15 Nasal Cannula 5.0 06/18/17 08:00 50 06/18/17 08:00 97.5 66 20 119/75 96 Bi-pap 50 06/18/17 08:00 60 06/18/17 07:25 58 14 99 Facial 40 06/18/17 05:21 60 21 97 Facial 40 06/18/17 04:00 50 06/18/17 04:00 98.3 62 20 147/74 97 Bi-pap 06/18/17 02:53 66 20 96 Facial 40 06/18/17 01:10 65 20 Bi-pap 40 06/18/17 01:08 64 20 96 Facial 40 06/18/17 00:01 62 06/17/17 23:57 97.7 65 22 129/74 97 Bi-pap Intake and Output 06/18/17 06/19/17 19:00 07:00 # Voids 2 2D Echo: LVEF 65% RA/RV dilatation, RVSP 58 mmHg, Grade I lVDD Laboratory Tests Test 06/18/17 08:30 06/18/17 09:30 White Blood Count 6.6 K/UL (4.8-10.8) Red Blood Count 7.03 M/UL (4.20-5.40) H Hemoglobin 19.6 G/DL (12.0-16.0) *H Hematocrit 67.9 % (37.0-47.0) H Mean Corpuscular Volume 96 FL (80-99) Mean Corpuscular Hemoglobin 27.9 PG (27.0-31.0) Mean Corpuscular Hemoglobin Concent 28.9 G/DL (32.0-36.0) L Red Cell Distribution Width 19.2 % (11.6-14.8) H Platelet Count 129 K/UL (150-450) L Mean Platelet Volume 6.9 FL (6.5-10.1) Neutrophils (%) (Auto) 64.2 % (45.0-75.0) Lymphocytes (%) (Auto) 20.5 % (20.0-45.0) Monocytes (%) (Auto) 13.5 % (1.0-10.0) H Eosinophils (%) (Auto) 1.1 % (0.0-3.0) Basophils (%) (Auto) 0.8 % (0.0-2.0) Sodium Level 141 mEQ/L (135-145) Potassium Level 3.6 mEQ/L (3.4-4.9) Chloride Level 92 mEQ/L (98-107) L Carbon Dioxide Level 39 mEQ/L (20-30) H Anion Gap 10 (5-15) Blood Urea Nitrogen 34 mg/dL (7-23) H Creatinine 1.0 mg/dL (0.5-0.9) H Estimat Glomerular Filtration Rate 56.0 mL/min (>60) Glucose Level 170 mg/dL (74-106) H Calcium Level 10.2 mg/dL (8.6-10.2) Total Bilirubin 1.0 mg/dL (0.0-1.2) Aspartate Amino Transf (AST/SGOT) 38 U/L (5-40) Alanine Aminotransferase (ALT/SGPT) 46 U/L (3-33) H Alkaline Phosphatase 90 U/L (35-104) Total Protein 7.2 g/dL (6.6-8.7) Albumin 4.3 g/dL (3.5-5.2) Globulin 2.9 g/dL Albumin/Globulin Ratio 1.4 (1.0-2.7) Prothrombin Time 11.9 SEC (9.30-11.50) H Prothromb Time International Ratio 1.1 (0.9-1.1) Activated Partial Thromboplast Time 28 SEC (23-33) Objective HEENT: Normocephalic and atraumatic. Pupils reactive to light. Pale sclera. Unable to assess oral mucosa due to BiPAP mask, plethoric NECK: Cannot assess JVD, no carotid bruit CARDIOVASCULAR: Regular rate and rhythm. No murmurs, gallops or rubs LUNGS: Diminished breathing sounds both lungs ABDOMEN: Soft, obese, nontender, and nondistended. Positive bowel sounds. No hepatosplenomegaly. No ascites. EXTREMITIES: No edema, clubbing or cyanosis. VIVIANE EDUARDO Jun 18, 2017 23:39
[2017-06-19] MEDS ORDERED: Fleet's Mineral Oil Enema RECTAL SCH (09:00)
--- NOTE | 2017-06-20 16:44 | Discharge Summary ---
Discharge Summary Hospital Course Date of Admission Jun 10, 2017 at 10:01 Date of Discharge Jun 18, 2017 at 20:58 Admitting Diagnosis ACUTE CHF,HYPOXEMIA HPI Giuliana Hines is a 61 year old female who was admitted on Jun 10, 2017 at 10:01 for Acute Congestive Heart Failure,Hypoxemia Hospital Course [id number] Discharge Discharge Disposition Patient was discharged to SNF/Subacute Facility(03) Discharge Diagnoses: Yudith Godwin NP Jun 20, 2017 16:44
--- NOTE | 2017-06-21 06:00 | Discharge Summary 2 SIG ---
DATE OF ADMISSION: 06/10/2017 DATE OF DISCHARGE: 06/18/2017 CONSULTANTS: 1. Bishnu Mc M.D. 2. Jona Suarez M.D. 3. Steven Chang M.D. 4. Barry Nguyen M.D. 5. Don Parekh M.D. 6. Aki Blankenship M.D. BRIEF HOSPITAL COURSE: The patient is a 61-year-old female, who presented to ED via EMS due to difficulty breathing. The patient reportedly had fallen and had increased low back pain. She stays at a psychiatric facility and was noted to have low oxygen saturation. She was started on supplemental oxygenation by EMS. On arrival to ED, she was started on BiPAP and was given breathing treatments. Workup showed evidence of urinary tract infection and the patient was pancultured and was started on IV antibiotics. Chest x-ray showed evidence of congestive heart failure and cardiomegaly. She was given IV Lasix. ABG showed CO2 retention. EKG was in normal sinus rhythm. She was then admitted to [facility], was started on vancomycin and Zosyn for healthcare-associated pneumonia. She had redness on the breast and was given Lotrimin topically. She was diagnosed with schizophrenia and bipolar disorder and was started on Lamictal 150 mg with trazodone at bedtime. She has polycythemia likely due to underlying COPD. Hold off on JAK2 level. Will need to have it addressed as an outpatient. She had elevated prothrombin with normal PTT, concerned for vitamin K deficiency as well as Factor VII deficiency. Vitamin K was given. She came in with a pressure ulcer on sacrococcygeal and buttock area and abrasions to the lower extremity. She was given wound care. Electrocardiogram showed sinus rhythm with right axis deviation, right atrial enlargement, septal infarct, and prolonged QT. Echocardiogram was normal with left ventricular systolic function and LVEF of 60% to 65%. There is a severe right atrial and ventricular cavity enlargement with D-shaped myocardial wall in the short axis suggestive of right ventricular pressure and volume overload. There is a severely decreased right ventricular systolic function. Dyspnea may be due to cor pulmonale and moderate pulmonary hypertension. Venous duplex was negative bilaterally and chest CTA showed no evidence of pulmonary emboli, aortic dissection, or aneurysm. Creatinine improved. The patient had been diuresing well. Urine culture showed growth of Klebsiella. Blood culture with coagulase-negative Staph. Antibiotic was switched to ceftriaxone. She was eventually tapered to a nasal cannula with improvement in BNP and repeat chest x-ray showed improvement. She was eventually discharged to SNF. FINAL DIAGNOSES: 1. Healthcare-associated pneumonia. 2. Acute respiratory failure requiring BiPAP, resolved. 3. Acute systolic congestive heart failure. 4. Cor pulmonale with [id number] pulmonary hypertension. 5. Hypoxemia, resolved, possible obesity, hypoventilation syndrome. 6. Chronic obstructive pulmonary disease. 7. Secondary polycythemia. 8. Thrombocytopenia. 9. Urinary tract infection due to Klebsiella pneumoniae. 10. Bacteremia, most likely contaminant. 11. Acute renal failure, resolved. 12. Obesity. 13. Hypertension. 14. Diabetes mellitus. 15. Right buttock stage III pressure ulcer and sacrococcygeal stage I pressure ulcer, present on admission. DISPOSITION: The patient was discharged to [facility]. DISCHARGE MEDICATIONS: Refer to medication list. Olu Calero M.D. I have been assigned to dictate discharge summary on this account and I was not involved in the patient's management. Yudith Godwin N.P. DR: LUC JOB#: [id number] CC: PAIGE
== END 2017-06-18 20:58 | DRG 720 ==
LOC: EDBD 09:01 → EMR 09:27 → 2W 10:01 → EDBEDREQ 10:56 → 2W 06-14 03:05 → 4E 06-14 18:58 → 2W 06-14 19:05
PROC: 5A09457 Assistance with Respiratory Ventilation, 24-96 Consecutive Hours, Continuous Positive Airway Pressure (ICD-10-PCS; principal; 2017-06-10)
DX: A41.9 Sepsis, unspecified organism (principal); J96.01 Acute respiratory failure with hypoxia; I50.21 Acute systolic (congestive) heart failure; L89.151 Pressure ulcer of sacral region, stage 1; N17.9 Acute kidney failure, unspecified; D68.2 Hereditary deficiency of other clotting factors; L89.313 Pressure ulcer of right buttock, stage 3; J18.9 Pneumonia, unspecified organism; I27.2 Other secondary pulmonary hypertension; D75.1 Secondary polycythemia; N39.0 Urinary tract infection, site not specified; J44.9 Chronic obstructive pulmonary disease, unspecified; I10 Essential (primary) hypertension; F20.9 Schizophrenia, unspecified; F31.9 Bipolar disorder, unspecified; B96.1 Klebsiella pneumoniae [K. pneumoniae] as the cause of diseases classified elsewhere; E56.1 Deficiency of vitamin K; E66.2 Morbid (severe) obesity with alveolar hypoventilation; E11.9 Type 2 diabetes mellitus without complications; E87.5 Hyperkalemia; N61.0 Mastitis without abscess; F41.9 Anxiety disorder, unspecified; D72.829 Elevated white blood cell count, unspecified; Z86.73 Personal history of transient ischemic attack (TIA), and cerebral infarction without residual deficits; D69.59 Other secondary thrombocytopenia
CPT/HCPCS: 36415; 36600; 71010; 71275; 80048; 80053; 80061; 80202; 81003; 82140; 82248; 82550; 82553; 82803; 82977; 83036; 83605; 83735; 83880; 84100; 84443; 84484; 84550; 85025; 85610; 85730; 86039; 86140; 86703; 86850; 86900; 86901; 87040; 87070; 87086; 87181; 87205; 93005; 93306; 93970; 94640; 94660; 94664; 94760; J7620; J8499